=== PATIENT | male | born 1995 | race Two or more races ===

== ENCOUNTER 2023-07-18 19:40 | Inpatient (IN) | payer MEDICAID, OTHER ==
[~2023-07-18] VITALS: Ht 177.8 cm; Wt 77.2 kg
[2023-07-18] MEDS ORDERED: KETOROLAC TROMETH 30 MG/ML 1ML VIAL IV ONE (20:00)
[2023-07-18] MEDS: SODIUM CHLORIDE 0.9% 1,000 ML IV ONE ×2 (20:02→21:16)
[2023-07-18] MEDS: ONDANSETRON HCL 4 MG/2 ML VIAL IV ONE (20:02)
[2023-07-18] MEDS: CLINDAMYCIN 600MG IV 50 ML IV ONE (20:18)
[2023-07-18] MEDS: ONDANSETRON HCL 4 MG/2 ML VIAL ONE (20:30)
[2023-07-18] MEDS: MORPHINE SULFATE INJ 2 MG/ml SYRG IV ONE (20:31)
[2023-07-18] MEDS: METOCLOPRAMIDE HCL 5MG/ml INJ 2ml VIAL IV ONE ×2 (20:45→20:54)
[2023-07-18 20:49] LABS: Basophils # (auto) 0 10 ^3/uL (0-0.2); Basophils % (auto) 0.4 % (0.0-2.0); Eosinophils # (auto) 0 10 ^3/uL (0-0.8); Eosinophils % (auto) 0.4 % (0.0-7.0); Hematocrit 44.7 % (41.0-53.0); Hemoglobin 15.4 g/dL (13.5-17.5); Lymphocytes # (auto) 2.7 10 ^3/uL (0.4-5.4); Lymphocytes % (auto) 32.6 % (10.0-50.0); Mean Corpuscular Hemoglobin 31.3 pg (28.0-32.0); Mean Corpuscular Hgb Conc. 34.4 g/dL (32.0-36.0); Monocytes # (auto) 0.9 10 ^3/uL (0-1.3); Monocytes % (auto) 11.5 % (0.0-12.0); Neutrophils # (auto) 4.5 10 ^3/uL (1.6-8.6); Neutrophils % (auto) 55.1 % (37.0-80.0); Nucleated Red Blood Cells % 0.7 %; Red Blood Cells 4.91 10^6/uL (4.5-5.90); Red Cell Distribution Width 13.3 % (11.8-14.3); White Blood Cell 8.1 10^3/uL (4.4-10.8)
[2023-07-18 20:54] VITALS: PULSE 145; RESP 16; O2SAT 99
[2023-07-18 20:59] LABS: Alanine Aminotransferase 10 U/L (7-40); Albumin 4.2 g/dL (3.2-4.8); Alkaline Phosphatase 85 U/L (46-116); Anion Gap 9 (5-15); Aspartate Aminotransferase 28 U/L (13-40); Bilirubin, Total 0.5 mg/dL (0.2-1.0); Calcium 8.7 mg/dL (8.5-10.1); Carbon Dioxide 22 mmol/L (20-30); Chloride 108 mmol/L (98-107); Glucose 112 mg/dL (74-106); Potassium 3.7 mmol/L (3.5-5.1); Sodium 139 mmol/L (136-145)
[2023-07-18 21:00] LABS: BUN/Creatinine Ratio 5.8 (10.0-20.0); Blood Urea Nitrogen < 5 mg/dL (9-23); Total Protein 6.8 g/dL (5.7-8.2)
[2023-07-18 21:01] LABS: Lactic Acid w/Reflex 3.1 mmol/L (0.4-2.0)
[2023-07-18] MEDS ORDERED: ONDANSETRON HCL 4 MG/2 ML VIAL IV PRN (22:30)
[2023-07-18] MEDS ORDERED: DOCUSATE SOD 100 MG CAP PO PRN (22:30)
[2023-07-18] MEDS ORDERED: TEMAZEPAM 15 MG CAP PO PRN (22:30)
[2023-07-18] MEDS ORDERED: MORPHINE SULFATE INJ 2 MG/ml SYRG IV PRN ×2 (22:30)
[2023-07-18] MEDS ORDERED: ACETAMINOPHEN 325 MG TAB PO PRN (22:30)
[2023-07-18] MEDS ORDERED: NITROGLYCERIN 0.4 MG SL TAB SL PRN (22:30)
[2023-07-18] MEDS: SODIUM CHLORIDE 0.9% 1,000 ML IV SCH (22:42)
[2023-07-18 22:46] VITALS: PULSE 79; RESP 16; O2SAT 20
[2023-07-18] MEDS: HYDROcodone-ACET 5/325MG TAB PO PRN (23:26)
[2023-07-19] MEDS: IOHEXOL 350 MG/ML 100ML IJ ONE (00:09)
[2023-07-19] MEDS: CLINDAMYCIN 600MG IV 50 ML IV SCH (01:42)
[2023-07-19 07:08] LABS: Basophils # (auto) 0 10 ^3/uL (0-0.2); Basophils % (auto) 0.8 % (0.0-2.0); Eosinophils # (auto) 0.1 10 ^3/uL (0-0.8); Hematocrit 42.1 % (41.0-53.0); Hemoglobin 14.5 g/dL (13.5-17.5); Lymphocytes # (auto) 1.5 10 ^3/uL (0.4-5.4); Lymphocytes % (auto) 28.1 % (10.0-50.0); Mean Corpuscular Hemoglobin 31.3 pg (28.0-32.0); Mean Corpuscular Hgb Conc. 34.5 g/dL (32.0-36.0); Mean Corpuscular Volume 90.8 fL (80.0-100.0); Monocytes # (auto) 0.7 10 ^3/uL (0-1.3); Monocytes % (auto) 12.7 % (0.0-12.0); Neutrophils # (auto) 3.1 10 ^3/uL (1.6-8.6); Neutrophils % (auto) 57.4 % (37.0-80.0); Nucleated Red Blood Cells % 0.3 %; Red Blood Cells 4.64 10^6/uL (4.5-5.90); Red Cell Distribution Width 13.1 % (11.8-14.3); White Blood Cell 5.3 10^3/uL (4.4-10.8)
[2023-07-19 07:21] LABS: Alanine Aminotransferase 10 U/L (7-40); Albumin 3.9 g/dL (3.2-4.8); Alkaline Phosphatase 84 U/L (46-116); Anion Gap 6 (5-15); Aspartate Aminotransferase 20 U/L (13-40); BUN/Creatinine Ratio 6.4 (10.0-20.0); Blood Urea Nitrogen 5 mg/dL (9-23); Calcium 8.9 mg/dL (8.5-10.1); Carbon Dioxide 24 mmol/L (20-30); Chloride 108 mmol/L (98-107); Glucose 79 mg/dL (74-106); Potassium 4.1 mmol/L (3.5-5.1); Sodium 138 mmol/L (136-145); Total Protein 6.2 g/dL (5.7-8.2)
[2023-07-19 08:00] VITALS: PULSE 70; RESP 14; O2SAT 93
[2023-07-19 10:00] VITALS: TEMP 98.2
[2023-07-19] MEDS: ENOXAPARIN SOD 40 MG/0.4 ML SYRINGE SC SCH (10:00)
[2023-07-19] MEDS ORDERED: CLIN300C70 PO (13:50)
[2023-07-19] MEDS ORDERED: HYDR-4798 PO (13:50)
[2023-07-19 13:54] VITALS: BP 109/72; PULSE 68; RESP 13; O2SAT 98
== END 2023-07-19 14:43 | disposition home or self-care (01) | DRG 383 ==
LOC: ER 19:40 → TELE 22:30
PROVIDERS: ADMIT Nurse Practitioner; ATTEND Nurse Practitioner
DX: L03.211 Cellulitis of face (principal); A41.9 Sepsis, unspecified organism; S02.5XXA Fracture of tooth (traumatic), initial encounter for closed fracture
CPT/HCPCS: 36415; 70487; 80053; 83605; 85025; 87040; 87077; 87186; 96361; 96365; 96375; G0378; J2405; J3490

== ENCOUNTER 2024-04-14 18:02 | Emergency (ER) | payer MEDICAID, OTHER ==
[~2024-04-14] VITALS: Ht 177.8 cm; Wt 86.3 kg
[~2024-04-14 18:02] MED LIST: CLIN1CAP70 PO; HYDR-4798 PO
[2024-04-14] MEDS: TETANUS-DIPTH-ACEL PERTUSSIS 0.5ML SYR Tdap IM ONE (19:29)
[2024-04-14 19:30] VITALS: BP 121/79; PULSE 71; RESP 18; TEMP 97.9; O2SAT 99
--- NOTE | 2024-04-14 19:31 | ED.PDOC ---
History of Present Illness(SKN HPI Comments 28y M who presents to the ED for chief complaint of puncture. Pt states he was using restroom and states while standing at urinal, pt was cut by sharp piece of metal that was located on the urinal. Pt states the incidence occurred at 11 AM. Pt states he had bleeding to site on 2nd, 3rd and 4th fingers on L hand initially but states now, bleeding is controlled. Pt states he is on blood thinner for clotting issue. Pt states he is here due to needing clearance for his work. Pt wound is clean and no visible swelling or edema are noted. Pt otherwise denies any other symptoms at this time. Chief Complaint: Puncture Wound Time Seen by MD: 19:29 History of Present Illness: Medications Allergies: Coded Allergies: NO KNOWN ALLERGIES (Unverified , 07/18/23) Home Meds Active Scripts Hydrocodone-Acetaminophen (Hydrocodone Bitartrate/AC 10-325 mg) 1 Tab Tab, 1 TAB PO Q6HP PRN for 5 Days, #20 TAB Prov:GEOVANI ABDALLA EMAIL MARKETER 07/19/23 Clindamycin Hcl (Clindamycin Hcl) 300 Mg Cap, 300 MG PO TID for 10 Days, #30 CAP Prov:GEOVANI ABDALLA EMAIL MARKETER 07/19/23 Information Source: Patient Mode of Arrival: Ambulatory Brought in by: self Past Medical History PAST MEDICAL HISTORY: Denies Surgical History: Denies all surgeries Family History Family History: Reviewed,noncontributory to illness, No family hx of Cancer, No family hx of DM, No family hx of Heart elmer, No family hx of HTN, No family hx ofKidney elmer, No family hx of Liver elmer, No family hx of Lung elmer, No family hx of Stroke Social History Smoker: Non-Smoker Alcohol: Denies ETOH Use Drugs: Denies Drug Use Lives In: Home Constitutional: denies: chills, diaphoresis, fatigue, fever, malaise, sweats, weakness, others EENTM: denies: blurred vision, double vision, ear bleeding, ear discharge, ear drainage, ear pain, ear ringing, eye pain, eye redness, hearing loss, mouth pain, mouth swelling, nasal discharge, nose bleeding, nose congestion, nose pain, photophobia, tearing, throat pain, throat swelling, voice changes, others Respiratory: denies: cough, hemoptysis, orthopnea, SOB at rest, shortness of breath, SOB with excertion, stridor, wheezing, others Cardiovascular: denies: chest pain, dizzy spells, diaphoresis, Dyspnea on exertion, edema, irregular heart beat, left arm pain, lightheadedness, palp itations, PND, syncope, others Gastrointestinal: denies: abdomen distended, abdominal pain, blood streaked bowels, constipated, diarrhea, dysphagia, difficulty swallowing, hematemesis, melena, nausea, poor appetite, poor fluid intake, rectal bleeding, rectal pain, vomiting, others Genitourinary: denies: burning, dysuria, flank pain, frequency, hematuria, incontinence, penile discharge, penile sore, pain, testicle pain, testicle swelling, urgency, others Neurological: denies: dizziness, fainting, headache, left sided numbness, left sided weakness, numbness, paresthesia, pre-existing deficit, right sided numbness, right sided weakness, seizure, speech problems, tingling, tremors, weakness, others Musculoskeletal: denies: back pain, gout, joint pain, joint swelling, muscle pain, muscle stiffness, neck pain, others Integumetry: reports: wounds (L hand fingers); denies: bruises, change in color, change in hair/nails, dryness, laceration, lesions, lumps, rash, others Allergic/Immunocompromised: denies: Difficulty Healing, Frequent Infections, Hives, Itching, others Hematologic/Lymphatic: denies: anemia, blood clots, easy bleeding, easy bruising, swollen glands, others Endocrine: denies: excessive hunger, excessive sweating, excessive thirst, excessive urination, flushing, intolerance to cold, intolerance to heat, unexplained weight gain, unexplained weight loss, others Psychiatric: denies: anxiety, bipolar disorder, depression, hopeless, panic disorder, schizophrenia, sleepless, suicidal, others All Other Systems: Reviewed and Negative Physical Exam General Appearance: No Apparent Distress, Normal HEENT: Normal ENT Inspection, Pharynx Normal, TMs Normal Neck: Full Range of Motion, Non-Tender, Normal, Normal Inspection Respiratory: Chest Non-Tender, Lungs Clear, No Accessory Muscle Use, No Respiratory Distress, Normal Breath Sounds Cardiovascular: No Edema, No JVD, No Murmur, No Gallop, Normal Peripheral Pulses, Regular Rate/Rhythm Breast Exam: Deferred Gastrointestinal: No Organomegaly, Non Tender, No Pulsatile Mass, Normal Bowel Sounds, Soft Genitalia: Deferred Pelvic: Deferred Rectal: Deferred Extremities: No calf tenderness, Normal capillary refill, Normal inspection, Normal range of motion, Non-tender, No pedal edema Musculoskeletal : Apperance: Normal Neurologic: Alert, client success manager II-XII nml as Tested, No Motor Deficits, Normal Affect, Normal Mood, No Sensory Deficits Cerebellar Function: NOT DONE Reflexes: NOT DONE Skin: Other (abrasions noted to 2nd, 3rd and 4th fingers on L hand, surrouding area clean) Lymphatic: No Adenopathy Was a procedure done? Was a procedure done?: No Differential Diagnosis (INTG) Differential Diagnosis: Abrasion, Cellulitis, Puncture Wound X-Ray, Labs, Meds, VS Vital Signs Date Time Temp Pulse Resp B/P (MAP) Pulse Ox O2 Delivery O2 Flow Rate FiO2 04/14/24 18:35 97.6 77 16 114/87 (96) 98 Current Medications Medications (Trade) Dose Ordered Sig/Emigdio Route Start Time Stop Time Status Last Admin Diphtheria/ Tetanus/Acell Pertussis (Boostrix T-Dap) 0.5 ml ONCE ONCE IM 04/14/24 19:30 04/14/24 19:31 DC 04/14/24 19:29 Time of 1ST Reevaluation: 20:00 Reevaluation 1ST: Unchanged Patient Education/Counseling: Diagnosis, Treatment Family Education/Counseling: No Family Present Departure 1 Departure Time of Disposition: 19:32 (Patient has small abrasions but no lacerations. Bleeding is controlled. neurovascularly intact.) Impression: Primary Impression: Hand abrasion Qualified Codes: S60.512A - Abrasion of left hand, initial encounter Disposition: HOME / SELF CARE / HOMELESS Condition: Stable Additional Instructions: You have abrasions to your left hand. 1. Wash the area with gentle soap such as Dove brand and water. 2. Cover the abrasion with bacitracin 3. Bandage the abrasion and keep them covered. You should do the above twice per day. For pain you can take the followinam: Ibuprofen 400mg with food Noon: Acetaminophen 1000mg 4pm: Ibuprofen 400mg with food 8pm: Acetaminophen 1000mg You received a tetanus shot in the ER. You can return to work as normal. If your symptoms worsen or you have any other concerns then please return to the ER. Discharged With: Self Critical Care Note Critical Care Time?: No Stability Stability form required: No Heart Score Heart Score: Heart Score Response (Comments) Value History N/A 0 EKG N/A 0 Age N/A 0 Risk Factors N/A 0 Troponin N/A 0 Total 0 I personally scribed for CRISTOFER OLIVEIRA MD ([email or web address]) on 04/14/24 at 19:31. Electronically submitted by Severiano Jensen ([email or web address]). CRISTOFER OLIVEIRA MD Apr 14, 2024 19:31
== END 2024-04-14 19:36 | disposition home or self-care (01) ==
LOC: ER 18:02
DX: S60.512A Abrasion of left hand, initial encounter (principal); Z79.899 Other long term (current) drug therapy; W26.8XXA Contact with other sharp object(s), not elsewhere classified, initial encounter; Y93.89 Activity, other specified; Y92.89 Other specified places as the place of occurrence of the external cause; Y99.8 Other external cause status
CPT/HCPCS: 90471; 90715

== ENCOUNTER 2024-07-31 19:18 | Emergency (ER) | payer MEDICAID, OTHER ==
[~2024-07-31] VITALS: Ht 177.8 cm; Wt 91.1 kg
--- NOTE | 2024-07-31 19:29 | ED.PDOC ---
SOB-HPI HPI Comments 29 year old male presents to the ED with chief complaint of SOB. Patient reports that he has been experiencing SOB with associated chest pain for the past few days along with associated left sided arm pain and tingling along with associated left leg pain that radiates to the groin for the past 2 days. Patient relays that he was seen in [place] for similar symptoms about 6 months ago and was sent to [place] where an thrombectomy was performed and he was placed on Eliquis. Patient states he has taken his Eliquis sporadically throughout those 6 months, however, this past month he has taken his medication daily as prescribed. Patient denies any dizziness, headache, cough, fever, chills, numbness, or weakness. Time Seen by MD: 19:25 Reviewed notes: Nurses Notes, Medications, Allergies Information Source: Patient Mode of Arrival: Ambulatory Severity: Moderate Timing: Hours Duration: Since onset Context: At Rest PE Risk Factors: None History of: DVT/PE Prehospital treatment: None Modifying Factors: Nothing Associated Signs and Symptoms: Chest Pain Quality: Tightness Radiation: No Radiation Location: Substernal Past Medical History PAST MEDICAL HISTORY: PE Past Medical History (Other): DVTs Surgical History: Denies all surgeries Family History Family History: Reviewed,noncontributory to illness, No family hx of Cancer, No family hx of DM, No family hx of Heart elmer, No family hx of HTN, No family hx ofKidney elmer, No family hx of Liver elmer, No family hx of Lung elmer, No family hx of Stroke Social History Smoker: Non-Smoker Alcohol: Denies ETOH Use Drugs: Denies Drug Use Lives In: Home Constitutional: denies: chills, diaphoresis, fatigue, fever, malaise, sweats, weakness, others EENTM: denies: blurred vision, double vision, ear bleeding, ear discharge, ear drainage, ear pain, ear ringing, eye pain, eye redness, hearing loss, mouth pain, mouth swelling, nasal discharge, nose bleeding, nose congestion, nose pain, photophobia, tearing, throat pain, throat swelling, voice changes, others Respiratory: reports: shortness of breath, SOB with excertion; denies: cough, hemoptysis, orthopnea, SOB at rest, stridor, wheezing, others Cardiovascular: reports: chest pain, left arm pain; denies: dizzy spells, diaphoresis, Dyspnea on exertion, edema, irregular heart beat, lightheadedness, palpitations, PND, syncope, others Gastrointestinal: denies: abdomen distended, abdominal pain, blood streaked bowels, constipated, diarrhea, dysphagia, difficulty swallowing, hematemesis, melena, nausea, poor appetite, poor fluid intake, rectal bleeding, rectal pain, vomiting, others Genitourinary: denies: burning, dysuria, flank pain, frequency, hematuria, incontinence, penile discharge, penile sore, pain, testicle pain, testicle swelling, urgency, others Neurological: reports: tingling; denies: dizziness, fainting, headache, left sided numbness, left sided weakness, numbness, paresthesia, pre-existing deficit, right sided numbness, right sided weakness, seizure, speech problems, tremors, weakness, others Musculoskeletal: reports: others (left leg pain); denies: back pain, gout, joint pain, joint swelling, muscle pain, muscle stiffness, neck pain Integumetry: denies: bruises, change in color, change in hair/nails, dryness, laceration, lesions, lumps, rash, wounds, others Allergic/Immunocompromised: denies: Difficulty Healing, Frequent Infections, Hives, Itching, others Hematologic/Lymphatic: reports: blood clots; denies: anemia, easy bleeding, easy bruising, swollen glands, others Endocrine: denies: excessive hunger, excessive sweating, excessive thirst, excessive urination, flushing, intolerance to cold, intolerance to heat, unexplained weight gain, unexplained weight loss, others Psychiatric: denies: anxiety, bipolar disorder, depression, hopeless, panic disorder, schizophrenia, sleepless, suicidal, others All Other Systems: Reviewed and Negative Physical Exam General Appearance: No Apparent Distress, Normal HEENT: Normal ENT Inspection, PERRL/EOMI Neck: Full Range of Motion, Non-Tender, Normal, Normal Inspection Respiratory: Chest Non-Tender, Lungs Clear, No Accessory Muscle Use, No Respiratory Distress, Normal Breath Sounds Cardiovascular: No Edema, No JVD, No Murmur, No Gallop, Normal Peripheral Pulses, Regular Rate/Rhythm Breast Exam: Deferred Gastrointestinal: No Organomegaly, Non Tender, No Pulsatile Mass, Normal Bowel Sounds, Soft Genitalia: Deferred Pelvic: Deferred Rectal: Deferred Extremities: No calf tenderness, Normal capillary refill, Normal inspection, Normal range of motion, Non-tender, No pedal edema Musculoskeletal : Apperance: Normal Neurologic: Alert, piano regulator inspector II-XII nml as Tested, No Motor Deficits, Normal Affect, Normal Mood, No Sensory Deficits Cerebellar Function: Normal Reflexes: Normal Skin: Dry, Normal Color, Warm Lymphatic: No Adenopathy Was a procedure done? Was a procedure done?: No Differential Dx Differential Diagnosis: Myocardial infarction, Pulmonary Embolism, Other (DVT) X-Ray, Labs, Meds, VS Vital Signs Date Time Temp Pulse Resp B/P (MAP) Pulse Ox O2 Delivery O2 Flow Rate FiO2 07/31/24 22:18 89 07/31/24 22:00 92 15 107/67 (80) 98 07/31/24 21:35 93 15 99 Room Air* 0 21 07/31/24 21:00 92 14 107/67 07/31/24 20:21 101 19 116/72 07/31/24 20:13 95 07/31/24 20:00 98.0 106 26 116/72 (87) 99 98.0 07/31/24 20:00 100 07/31/24 19:23 109 07/31/24 19:20 98.0 109 26 126/76 (93) 98 Lab Test 07/31/24 20:50 07/31/24 19:56 Range/Units Troponin I High Sensitivity < 3 L < 3 L </=54 ng/L White Blood Count 4.3 L 4.4-10.8 10^3/uL Red Blood Count 4.93 4.5-5.90 10^6/uL Hemoglobin 15.4 13.5-17.5 g/dL Hematocrit 45.9 41.0-53.0 % Mean Corpuscular Volume 93.0 80.0-100.0 fL Mean Corpuscular Hemoglobin 31.3 28.0-32.0 pg Mean Corpuscular Hemoglobin Concent 33.6 32.0-36.0 g/dL Red Cell Distribution Width 13.6 11.8-14.3 % Platelet Count 128 L 140-450 10^3/uL Mean Platelet Volume 9.1 6.9-10.8 fL Neutrophils (%) (Auto) 49.3 37.0-80.0 % Lymphocytes (%) (Auto) 36.1 10.0-50.0 % Monocytes (%) (Auto) 8.4 0.0-12.0 % Eosinophils (%) (Auto) 5.3 0.0-7.0 % Basophils (%) (Auto) 0.9 0.0-2.0 % Neutrophils # (Auto) 2.1 1.6-8.6 10 ^3/uL Lymphocytes # (Auto) 1.5 0.4-5.4 10 ^3/uL Monocytes # (Auto) 0.4 0-1.3 10 ^3/uL Eosinophils # (Auto) 0.2 0-0.8 10 ^3/uL Basophils # (Auto) 0 0-0.2 10 ^3/uL Nucleated Red Blood Cells 0.1 % Prothrombin Time 10.2 9.3-11.8 sec Prothrombin Time INR 0.96 0.9-1.15 D-Dimer, Quantitative 0.23 0.0-0.49 mg/L FEU Sodium Level 138 136-145 mmol/L Potassium Level 3.7 3.5-5.1 mmol/L Chloride Level 106 98-107 mmol/L Carbon Dioxide Level 19 L 20-31 mmol/L Anion Gap 13 5-15 Blood Urea Nitrogen 6 L 9-23 mg/dL Creatinine 0.99 0.700-1.30 mg/dL Glomerular Filtration Rate Calc 106 >90 mL/min BUN/Creatinine Ratio 6.1 L 10.0-20.0 Serum Glucose 121 H 74-106 mg/dL Calcium Level 9.6 8.7-10.4 mg/dL Total Bilirubin 0.5 0.2-1.0 mg/dL Aspartate Amino Transferase (AST) 135 H 13-40 U/L Alanine Aminotransferase (ALT) 80 H 7-40 U/L Alkaline Phosphatase 91 46-116 U/L Total Protein 7.2 5.7-8.2 g/dL Albumin 4.7 3.2-4.8 g/dL Current Medications Medications (Trade) Dose Ordered Sig/Emigdio Route Start Time Stop Time Status Last Admin Morphine Sulfate 4 mg ONCE ONCE IV 07/31/24 20:15 07/31/24 20:16 DC 07/31/24 20:21 Ondansetron HCl (Zofran) 4 mg ONCE ONCE IV 07/31/24 20:15 07/31/24 20:16 DC 07/31/24 20:20 X-Ray, Labs, Meds, VS Comment CTA NEGATIVE DVT ULTRASOUND SHOWS NO OCCLUDED RIGHT POPLITEAL PATIENT ADVISED HE NEEDS TO CONTINUE TAKING ELIQUIS B.I.D. DIRECTED BY HIS PARLIAMENTARY ARCHIVIST AND PRIMARY DOCTORS ADVISED HIM TO CALL TOMORROW FOR A FOLLOW UP APPOINTMENT WITH CARDIOLOGY AND HEMATOLOGY. Time of 1ST Reevaluation: 20:25 Reevaluation 1ST: Unchanged Patient Education/Counseling: Diagnosis, Treatment, Need For Follow Up (PATIENT ADVISED TO FOLLOW-UP IN THE EMERGENCY ROOM IN THE NEXT 24 TO 48 HOURS IF SYMPTOMS DO NOT IMPROVE. ADVISED FOLLOW-UP WITH PCP IN THE NEXT 3 TO 5 DAYS. PATIENT VERBALIZED UNDERSTANDING. ) Family Education/Counseling: No Family Present Departure 1 Departure Time of Disposition: 22:49 Impression: Primary Impression: Right leg DVT Qualified Codes: I82.431 - Acute embolism and thrombosis of right popliteal vein Disposition: HOME / SELF CARE / HOMELESS Condition: Fair e-Prescriptions Apixaban Base (ELIQUIS) 5 Mg Tab 5 MG PO BID for 30 Days, #60 TAB Prov: WES PAEZ 07/31/24 Discharged With: Self Critical Care Note Critical Care Time?: No Stability Stability form required: No Heart Score Heart Score: Heart Score Response (Comments) Value History Slightly Suspicious 0 EKG Normal 0 Age <45 0 Risk Factors No known risk factors 0 Troponin Normal limit 0 Total 0 I personally scribed for WES PAEZ ([email or web address]) on 07/31/24 at 19:29. Electronically submitted by Mat Bojorquez ([email or web address]). WES PAEZ Jul 31, 2024 19:29
[2024-07-31 20:00] VITALS: TEMP 98
[2024-07-31 20:17] LABS: Basophils # (auto) 0 10 ^3/uL (0-0.2); Basophils % (auto) 0.9 % (0.0-2.0); Eosinophils # (auto) 0.2 10 ^3/uL (0-0.8); Eosinophils % (auto) 5.3 % (0.0-7.0); Hematocrit 45.9 % (41.0-53.0); Hemoglobin 15.4 g/dL (13.5-17.5); Lymphocytes # (auto) 1.5 10 ^3/uL (0.4-5.4); Lymphocytes % (auto) 36.1 % (10.0-50.0); Mean Corpuscular Hemoglobin 31.3 pg (28.0-32.0); Mean Corpuscular Hgb Conc. 33.6 g/dL (32.0-36.0); Monocytes # (auto) 0.4 10 ^3/uL (0-1.3); Monocytes % (auto) 8.4 % (0.0-12.0); Neutrophils # (auto) 2.1 10 ^3/uL (1.6-8.6); Neutrophils % (auto) 49.3 % (37.0-80.0); Nucleated Red Blood Cells % 0.1 %; Platelet Count (auto) 128 10^3/uL (140-450); Red Blood Cells 4.93 10^6/uL (4.5-5.90); Red Cell Distribution Width 13.6 % (11.8-14.3); White Blood Cell 4.3 10^3/uL (4.4-10.8)
[2024-07-31] MEDS: ONDANSETRON HCL 4 MG/2 ML VIAL IV ONE (20:20)
[2024-07-31] MEDS: MORPHINE SULFATE 4 MG/ML SYR/VIAL IV ONE (20:21)
[2024-07-31 20:32] LABS: INR 0.96 (0.9-1.15); Prothrombin Time 10.2 sec (9.3-11.8)
[2024-07-31 20:34] LABS: Albumin 4.7 g/dL (3.2-4.8); Alkaline Phosphatase 91 U/L (46-116); Anion Gap 13 (5-15); BUN/Creatinine Ratio 6.1 (10.0-20.0); Calcium 9.6 mg/dL (8.7-10.4); Chloride 106 mmol/L (98-107); Potassium 3.7 mmol/L (3.5-5.1); Sodium 138 mmol/L (136-145); Total Protein 7.2 g/dL (5.7-8.2)
[2024-07-31 20:35] LABS: Bilirubin, Total 0.5 mg/dL (0.2-1.0)
[2024-07-31 21:04] LABS: Alanine Aminotransferase 80 U/L (7-40); Aspartate Aminotransferase 135 U/L (13-40); Blood Urea Nitrogen 6 mg/dL (9-23); Carbon Dioxide 19 mmol/L (20-31); Glucose 121 mg/dL (74-106)
--- NOTE | 2024-07-31 21:25 | DVH ---
CTA Chest with intravenous contrast INDICATION: sob Comparison Study: None available at time of dictation. TECHNIQUE: Multidetector spiral CTA of the chest was performed of the chest with intravenous contrast . PULMONARY ANGIOGRAPHY PROTOCOL was utilized using a bolus-tracking technique centered on the main p ulmonary artery. Axial, coronal and sagittal multiplanar and MIP reformats were performed. Radiation Dose : 1. Chest: CTDI volume is 5.92 mGy. Dose-length product is 539.86 mGy*cm The dose indicators for CT are the volume Computed Tomography (CT) Dose Index (CTDIvol) and the Dose Length Product (DLP), and are measured in units of mGy and mGy-cm, respectively. These indicators are not patient dose, but values generated from the CT scanner acquisition factors. The report includes radiation exposure data for exposures received during this examination. Findings: Pulmonary artery: No evidence of pulmonary embolism seen to the level of the proximal segmental arteries. No dilation o f the pulmonary trunk. No right heart strain. Lower neck: Within normal limits. Lungs: Within normal limits.. Heart/Vascular Structures: Within normal limits.. Lymph Nodes: No adenopathy Pleura: Within normal limits.. Musculoskeletal: Within normal limits.. Body wall: Within normal limits.. Upper abdomen: Within normal limits. IMPRESSION: No evidence of pulmonary embolism. No aortic dissection or aneurysm.
[2024-07-31 21:35] VITALS: PULSE 93; RESP 15; O2SAT 99
[2024-07-31 22:00] VITALS: BP 107/67; RESP 15; O2SAT 98
[2024-07-31 22:18] VITALS: PULSE 89
--- NOTE | 2024-07-31 22:32 | DVH ---
Bilateral lower extremity venous duplex Clinical History: LEG PAIN, HX DVT Comparison: None Technique: Duplex Doppler evaluation of the deep venous systems of both lower extremities from the common femora l veins to the popliteal veins including color Doppler and spectral/pulsed waveform analysis was perf ormed. Findings: RIGHT SIDE: The common femoral vein demonstrates appropriate compressibility and waveform variability. There is compressibility/patency of the great saphenous vein at the proximal thigh. The femoral vein demonstrates appropriate compressibility and waveform variability. The deep femoral vein demonstrates appropriate compressibility and waveform variability. The popliteal vein demonstrates evidence of nonconclusive thrombus. There is normal compressibility at the tibioperoneal trunk. LEFT SIDE: The common femoral vein demonstrates appropriate compressibility and waveform variability. There is compressibility/patency of the great saphenous vein at the proximal thigh. The femoral vein demonstrates appropriate compressibility and waveform variability. The deep femoral vein demonstrates appropriate compressibility and waveform variability. The popliteal vein demonstrates appropriate compressibility and waveform variability. There is normal compressibility at the tibioperoneal trunk. Impression: Evidence of non occlusive thrombus in right popiteal vein. No evidence of left femoropopliteal venous thrombosis.
[2024-07-31] MEDS ORDERED: APIX5TAB PO (22:50)
--- NOTE | 2024-08-01 06:38 | ECG ---
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
--- NOTE | 2024-08-01 06:39 | ECG ---
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
--- NOTE | 2024-08-01 15:19 | ECG ---
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
== END 2024-07-31 23:09 | disposition home or self-care (01) ==
LOC: ER 19:18
DX: I82.431 Acute embolism and thrombosis of right popliteal vein (principal); R06.02 Shortness of breath; R07.89 Other chest pain; Z79.01 Long term (current) use of anticoagulants; Z86.718 Personal history of other venous thrombosis and embolism
CPT/HCPCS: 36415; 71275; 80053; 84484; 85025; 85379; 85610; 93005; 93970; 96374; 96375; 99285; J2270; J2405

== ENCOUNTER 2024-12-04 20:43 | Emergency (ER) | payer MEDICAID, SELFPAY ==
[~2024-12-04] VITALS: Ht 177.8 cm; Wt 95.5 kg
[~2024-12-04 20:43] MED LIST changes: +APIX5TAB PO
--- NOTE | 2024-12-04 21:09 | ED.PDOC ---
SOB-HPI HPI Comments 29-year-old male with PMHx DVT presents with a chief complaint of SOB x 2 weeks worsening over the last day. Patient states that he woke up this morning and had worsening SOB. Patient also reports that he is experiencing left-sided numbness. Patient states that he is also having bilateral lower leg swelling and has been out of his Eliquis for 3 weeks. No other symptoms or modifying factors present at this time. Time Seen by MD: 21:06 Reviewed notes: Medications, Allergies Information Source: Patient Mode of Arrival: Ambulatory Severity: Moderate Timing: Weeks Duration: Since onset PE Risk Factors: None History of: None Prehospital treatment: None Associated Signs and Symptoms: Leg Swelling Quality: Pressure Radiation: No Radiation Location: Substernal Past Medical History PAST MEDICAL HISTORY: PE Surgical History: Denies all surgeries Family History Family History: Reviewed,noncontributory to illness, No family hx of Cancer, No family hx of DM, No family hx of Heart elmer, No family hx of HTN, No family hx ofKidney elmer, No family hx of Liver elmer, No family hx of Lung elmer, No family hx of Stroke Social History Smoker: Non-Smoker Alcohol: Denies ETOH Use Drugs: Denies Drug Use Lives In: Home Constitutional: denies: chills, diaphoresis, fatigue, fever, malaise, sweats, weakness, others EENTM: denies: blurred vision, double vision, ear bleeding, ear discharge, ear drainage, ear pain, ear ringing, eye pain, eye redness, hearing loss, mouth pain, mouth swelling, nasal discharge, nose bleeding, nose congestion, nose pain, photophobia, tearing, throat pain, throat swelling, voice changes, others Respiratory: reports: shortness of breath; denies: cough, hemoptysis, orthopnea, SOB at rest, SOB with excertion, stridor, wheezing, others Cardiovascular: reports: edema; denies: chest pain, dizzy spells, diaphoresis, Dyspnea on exertion, irregular heart beat, left arm pain, lightheadedness, palpitations, PND, syncope, others Gastrointestinal: denies: abdomen distended, abdominal pain, blood streaked bowels, constipated, diarrhea, dysphagia, difficulty swallowing, hematemesis, melena, nausea, poor appetite, poor fluid intake, rectal bleeding, rectal pain, vomiting, others Genitourinary: denies: burning, dysuria, flank pain, frequency, hematuria, incontinence, penile discharge, penile sore, pain, testicle pain, testicle swelling, urgency, others Neurological: denies: dizziness, fainting, headache, left sided numbness, left sided weakness, numbness, paresthesia, pre-existing deficit, right sided numbness, right sided weakness, seizure, speech problems, tingling, tremors, weakness, others Musculoskeletal: denies: back pain, gout, joint pain, joint swelling, muscle pain, muscle stiffness, neck pain, others Integumetry: denies: bruises, change in color, change in hair/nails, dryness, laceration, lesions, lumps, rash, wounds, others Allergic/Immunocompromised: denies: Difficulty Healing, Frequent Infections, Hives, Itching, others Hematologic/Lymphatic: denies: anemia, blood clots, easy bleeding, easy bruising, swollen glands, others Endocrine: denies: excessive hunger, excessive sweating, excessive thirst, excessive urination, flushing, intolerance to cold, intolerance to heat, unexplained weight gain, unexplained weight loss, others Psychiatric: denies: anxiety, bipolar disorder, depression, hopeless, panic disorder, schizophrenia, sleepless, suicidal, others All Other Systems: Reviewed and Negative Physical Exam General Appearance: No Apparent Distress, Normal HEENT: Normal ENT Inspection, Pharynx Normal, TMs Normal Neck: Full Range of Motion, Non-Tender, Normal, Normal Inspection Respiratory: Chest Non-Tender, Lungs Clear, No Accessory Muscle Use, No Respiratory Distress, Normal Breath Sounds Cardiovascular: Tachycardia Breast Exam: Deferred Gastrointestinal: No Organomegaly, Non Tender, No Pulsatile Mass, Normal Bowel Sounds, Soft Genitalia: Deferred Pelvic: Deferred Rectal: Deferred Extremities: Leg edema, Swelling Musculoskeletal : Apperance: Normal 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 Was a procedure done?: No Differential Dx Differential Diagnosis: Anxiety, Asthma, Myocardial infarction, Pulmonary Embolism X-Ray, Labs, Meds, VS Vital Signs Date Time Temp Pulse Resp B/P (MAP) Pulse Ox O2 Delivery O2 Flow Rate FiO2 12/04/24 22:39 89 17 115/76 (89) 97 12/04/24 22:27 89 17 115/76 12/04/24 22:16 19 98 Room Air* 0 21 12/04/24 22:00 98.8 92 12 107/72 (84) 98 98.8 12/04/24 21:57 67 19 120/81 12/04/24 21:54 99 12/04/24 20:50 125 12/04/24 20:46 97.8 123 20 125/81 (96) 97 97.8 Lab Test 12/04/24 21:45 Range/Units White Blood Count 3.5 L 4.4-10.8 10^3/uL Red Blood Count 4.72 4.5-5.90 10^6/uL Hemoglobin 15.0 13.5-17.5 g/dL Hematocrit 43.7 41.0-53.0 % Mean Corpuscular Volume 92.7 80.0-100.0 fL Mean Corpuscular Hemoglobin 31.8 28.0-32.0 pg Mean Corpuscular Hemoglobin Concent 34.3 32.0-36.0 g/dL Red Cell Distribution Width 12.9 11.8-14.3 % Platelet Count 111 L 140-450 10^3/uL Mean Platelet Volume 9.6 6.9-10.8 fL Neutrophils (%) (Auto) 41.1 37.0-80.0 % Lymphocytes (%) (Auto) 44.9 10.0-50.0 % Monocytes (%) (Auto) 10.9 0.0-12.0 % Eosinophils (%) (Auto) 2.0 0.0-7.0 % Basophils (%) (Auto) 1.1 0.0-2.0 % Neutrophils # (Auto) 1.4 L 1.6-8.6 10 ^3/uL Lymphocytes # (Auto) 1.6 0.4-5.4 10 ^3/uL Monocytes # (Auto) 0.4 0-1.3 10 ^3/uL Eosinophils # (Auto) 0.1 0-0.8 10 ^3/uL Basophils # (Auto) 0 0-0.2 10 ^3/uL Nucleated Red Blood Cells 0.2 % Prothrombin Time 10.9 9.3-11.8 sec Prothrombin Time INR 1.03 0.9-1.15 Activated Partial Thromboplast Time 25.2 24.5-34.5 SEC Sodium Level 138 136-145 mmol/L Potassium Level 3.4 L 3.5-5.1 mmol/L Chloride Level 104 98-107 mmol/L Carbon Dioxide Level 23 20-31 mmol/L Anion Gap 11 5-15 Blood Urea Nitrogen 6 L 9-23 mg/dL Creatinine 0.92 0.700-1.30 mg/dL Glomerular Filtration Rate Calc 116 >90 mL/min BUN/Creatinine Ratio 6.5 L 10.0-20.0 Serum Glucose 77 74-106 mg/dL Calcium Level 9.4 8.7-10.4 mg/dL Total Bilirubin 0.5 0.2-1.0 mg/dL Aspartate Amino Transferase (AST) 136 H 13-40 U/L Alanine Aminotransferase (ALT) 149 H 7-40 U/L Alkaline Phosphatase 84 46-116 U/L Troponin I High Sensitivity < 3 L </=54 ng/L Total Protein 6.4 5.7-8.2 g/dL Albumin 4.3 3.2-4.8 g/dL Current Medications Medications (Trade) Dose Ordered Sig/Emigdio Route Start Time Stop Time Status Last Admin Morphine Sulfate 4 mg ONCE ONCE IV 12/04/24 22:00 12/04/24 22:01 DC 12/04/24 21:57 Ondansetron HCl (Zofran) 4 mg ONCE ONCE IV 12/04/24 22:00 12/04/24 22:01 DC 12/04/24 21:56 X-Ray, Labs, Meds, VS Comment Imaging: X-rays and CT scans were reviewed and interpreted by this provider, imaging shows no fractures and no pathological disease. Pending radiology otf yu. Laboratory: Labs reviewed and interpreted by this provider. No significant abnormalities noted. Patient has prior medical visits reviewed. Med reconciliation performed Vital signs reviewed Time of 1ST Reevaluation: 21:36 Reevaluation 1ST: Unchanged Patient Education/Counseling: Diagnosis, Treatment, Need For Follow Up (Follow up with PCP next available appointment) Family Education/Counseling: No Family Present SEPSIS Sepsis Screen Physician Orders Electrocardigram (12/04/24 21:16) Electrocardigram (12/04/24 22:16) Electrocardigram (12/05/24 00:16) Ct Chest/Ab/Pl W Con- Iv Only (12/04/24 21:16) Angio Head/Neck (12/04/24 21:16) Angio Extremity Bilat (12/04/24 23:15) Vital Signs Date Time Temp Pulse Resp B/P (MAP) Pulse Ox O2 Delivery O2 Flow Rate FiO2 12/04/24 22:39 89 17 115/76 (89) 97 12/04/24 22:27 89 17 115/76 12/04/24 22:16 19 98 Room Air* 0 21 12/04/24 22:00 98.8 92 12 107/72 (84) 98 98.8 12/04/24 21:57 67 19 120/81 12/04/24 21:54 99 12/04/24 20:50 125 12/04/24 20:46 97.8 123 20 125/81 (96) 97 97.8 Laboratory Tests Test 12/04/24 21:45 White Blood Count 3.5 10^3/uL (4.4-10.8) L Medications Medications Dose Ordered Sig/Emigdio Route Start Time Stop Time Status Last Admin Dose Admin Morphine Sulfate 4 mg ONCE ONCE IV 12/04/24 22:00 12/04/24 22:01 DC 12/04/24 21:57 Ondansetron HCl 4 mg ONCE ONCE IV 12/04/24 22:00 12/04/24 22:01 DC 12/04/24 21:56 Departure 1 Departure Time of Disposition: 00:19 Impression: Primary Impression: Chest pain Qualified Codes: R07.1 - Chest pain on breathing Disposition: HOME / SELF CARE / HOMELESS Condition: Fair e-Prescriptions Apixaban Base (ELIQUIS) 5 Mg Tab 5 MG PO BID for 30 Days, #60 TAB 2 Refills Prov: WES PAEZ 12/05/24 Discharged With: Self Critical Care Note Critical Care Time?: No Stability Stability form required: No Heart Score Heart Score: Heart Score Response (Comments) Value History Moderate Suspicious 1 EKG Normal 0 Age <45 0 Risk Factors 1 or 2 risk factors 1 Troponin Normal limit 0 Total 2 I personally scribed for WES PAEZ ([email or web address]) on 12/04/24 at 21:09. Electronically submitted by Mack Chaudhary ([email or web address]). WES PAEZ Dec 04, 2024 21:09
[2024-12-04 21:53] LABS: Hematocrit 43.7 % (41.0-53.0); Hemoglobin 15.0 g/dL (13.5-17.5); Mean Corpuscular Hemoglobin 31.8 pg (28.0-32.0); Mean Corpuscular Volume 92.7 fL (80.0-100.0); Nucleated Red Blood Cells % 0.2 %
[2024-12-04] MEDS: ONDANSETRON HCL 4 MG/2 ML VIAL IV ONE (21:56)
[2024-12-04] MEDS: MORPHINE SULFATE 4 MG/ML SYR/VIAL IV ONE (21:57)
[2024-12-04 22:00] VITALS: TEMP 98.8
[2024-12-04 22:10] LABS: Albumin 4.3 g/dL (3.2-4.8); Alkaline Phosphatase 84 U/L (46-116); Anion Gap 11 (5-15); BUN/Creatinine Ratio 6.5 (10.0-20.0); Calcium 9.4 mg/dL (8.7-10.4); Carbon Dioxide 23 mmol/L (20-31); Chloride 104 mmol/L (98-107); Glucose 77 mg/dL (74-106); Sodium 138 mmol/L (136-145); Total Protein 6.4 g/dL (5.7-8.2)
[2024-12-04 22:11] LABS: Bilirubin, Total 0.5 mg/dL (0.2-1.0)
[2024-12-04 22:13] LABS: Alanine Aminotransferase 149 U/L (7-40); Blood Urea Nitrogen 6 mg/dL (9-23); Potassium 3.4 mmol/L (3.5-5.1)
[2024-12-04 22:16] VITALS: RESP 19; O2SAT 98
[2024-12-04 22:39] VITALS: BP 115/76; RESP 17; O2SAT 97
--- NOTE | 2024-12-04 22:44 | DVH ---
COMPUTERIZED TOMOGRAPHIC ANGIOGRAPHY HEAD AND NECK WITH CONTRAST REASON FOR EXAM: Neck and shoulder and chest pain. Generalized weakness. Genetic clotting disorder. COMPARISON: None TECHNIQUE: Initial noncontrast head CT was performed. Initial noncontrast head CT was performed Spira l scans were acquired from the aortic arch through the upper [place] of [place] during the bolus intravenous administration of contrast material. Multiplanar maximum intensity projection (MIP) images were prov ided. 3-D reformatted and were generated on an independent workstation. Radiation optimization: All C T scans at this facility use at least one of these dose optimization techniques: Automated exposure c ontrol mA and/or kV adjustment per patient size (includes targeted exams where dose is matched to cli nical indication) or iterative reconstruction. RADIATION DOSE: CTDI: 56 mGy DLP: 1758 mGy-cm FINDINGS: No suspicious intracranial hyperdensity to suggest acute blood. There is no mass effect nor midline s hift. There is no hydrocephalus. The suprasellar cistern is intact. The calvarium is intact. The visu alized mastoid air cells and paranasal sinuses are clear. There is soft tissue density in the right e xternal auditory canal, likely cerumen. There is soft tissue density in the right external auditory c anal, likely cerumen. Cerumen. There is 3-vessel takeoff from the aortic arch. There is 3 vessel takeoff from the aortic arch. There is no appreciable soft or calcified plaque in either common or internal carotid artery. There is no evidence of carotid stenosis. The left vertebral artery is dominant. The right vertebral artery is di minutive. There is no evidence of vertebral artery stenosis, dissection, or occlusion. There is supply of the left posterior cerebral artery. There is no abrupt intracranial arterial cut off. The re is no evidence of intracranial vascular malformation or aneurysm. The dural venous sinuses are pat ent. The visualized lung apices are clear of airspace disease. No acute osseous abnormality is identi fied. IMPRESSION: No abrupt intracranial arterial cut off. No evidence of intracranial vascular malformation or aneury sm. No carotid or vertebral artery stenosis or occlusion. Measurement of carotid stenosis is based on velocity parameters that correlate the residual internal carotid diameter with that of the more distal vessel in accordance with the [place] Symptom[place] Carotid Endarterectomy Trial (NASCET).
[2024-12-04 23:07] LABS: INR 1.03 (0.9-1.15); Partial Thromboplastin Time 25.2 SEC (24.5-34.5); Prothrombin Time 10.9 sec (9.3-11.8)
[2024-12-05] VITALS: PULSE 77
--- NOTE | 2024-12-05 00:08 | DVH ---
CTA CHEST, ABDOMEN, AND PELVIS WITH CONTRAST CTA BILATERAL LOWER EXTREMITY RUNOFF WITH CONTRAST INDICATION: Shortness of breath. Generalized weakness. Genetic clotting disorder. History of pulmo nary embolism. Asked to evaluate for pulmonary embolism as well as systemic arterial thrombus. COMPARISON: CTA chest 07/31/2024 TECHNIQUES: Thin axial CT images of the chest, abdomen, pelvis, and bilateral lower extremities are obtained in the arterial phase after intravenous contrast administration. Maximum intensity projecti on (MIP) images were provided. 3-D images were constructed on independent workstation. Automated exp osure control was used. LABS: Current laboratory values provided were reviewed or Point of Care testing was performed to waqar lary the patient meets current departmental guidelines for contrast media administration per protocol. CONTRAST ADMINISTERED: 100 mL omnipaque 350 intravenously MEDICATIONS: The patient's medication list was reviewed RADIATION DOSE: CTDI: 15 mGy DLP: 2089 mGy-cm FINDINGS: There is minimal dependent atelectasis in bilateral lower lobes of the lungs. There is no bronchiecta sis or honeycombing. There is no pleural effusion. There is no pneumothorax. The visualized thyroid gland is unremarkable. The heart is not enlarged. There is no pericardial effusion. There is no pul monary arterial filling defect as far as the interlobar arteries to suggest pulmonary embolism. There is no thoracic aortic aneurysm or dissection. No pathologic lymphadenopathy is identified in the enrique st by size criteria. The spleen is not enlarged. The liver is normal in size and contour. The liver is diffusely hypoatte nuating. The hepatic veins are patent. The portal vein is patent. No calcified gallstone is identifi ed. There is no pericholecystic edema. The pancreas is unremarkable. The adrenal glands are normal. T he kidneys enhance symmetrically. There is cortical scarring of the interpolar region of the left ki dney. There is no hydronephrosis of either kidney. The urinary bladder is unremarkable. The prostat e and seminal vesicles are within normal limits. There is no significant colonic stool burden. The ap pendix is normal. There is no pathologic distention of the small bowel to suggest obstruction. There is no abdominal aortic aneurysm or dissection. There is no visceral arterial aneurysm. The celiac, SM A, and LUIS E are widely patent. There is no pathologic lymphadenopathy identified in the abdomen or pel vis by size criteria. Bilateral common iliac, internal iliac, and external iliac arteries are widely patent and without any appreciable plaque. Bilateral common femoral, profunda femoris, and superficial femoral arteries are widely patent and without any appreciable plaque or thrombus. Bilateral popliteal arteries are widel y patent without appreciable plaque or thrombus. Bilateral anterior tibial arteries, tibioperoneal tr unk, posterior tibial arteries, and peroneal arteries are widely patent. No acute osseous abnormality is identified. IMPRESSION: No evidence of pulmonary embolism as far as the interlobar level. The pulmonary arteries are suboptim ally evaluated on this CTA of the chest, abdomen, pelvis, and bilateral lower extremities, timed for systemic arterial opacification. No thoracic or abdominal aortic aneurysm or dissection. No evidence of visceral arterial thrombus. Widely patent bilateral lower extremity arteries without evidence of thrombus.
[2024-12-05] MEDS: IOHEXOL 350 MG/ML 100ML IJ ONE (00:48)
--- NOTE | 2024-12-05 06:23 | ECG ---
[facility] Test Date: 2024-12-04 Test Time: 21:54:35 Pat Name: MARCO A LAMBERT Department: ED Room: Gender: M Pick Up: QUINTIN : 1995 Requested By: WES PAEZ Order Number: [id number] Reading MD: Measurements Intervals [place] Rate: 99 P: 33 CO: 155 QRS: 83 QRSD: 126 T: 5 QT: 370 QTc: 475 Interpretive Statements Sinus rhythm Probable left atrial enlargement Right bundle branch block Please click the below link to view image of tracing.
--- NOTE | 2024-12-05 12:08 | ECG ---
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
== END 2024-12-05 01:11 | disposition home or self-care (01) ==
LOC: ER 20:43 → EEVIPCON 20:43 → ER 12-05 01:11
DX: R07.89 Other chest pain (principal); Z86.711 Personal history of pulmonary embolism; Z79.01 Long term (current) use of anticoagulants
CPT/HCPCS: 36415; 70496; 70498; 71260; 74177; 80053; 84484; 85025; 85610; 85730; 93005; 96374; 96375; 99285; J2270; J2405; Q9967

== ENCOUNTER 2025-03-27 12:20 | Inpatient (IN) | payer SELFPAY ==
[~2025-03-27] VITALS: Ht 177.8 cm; Wt 86.0 kg
[2025-03-27 13:00] VITALS: PULSE 86; RESP 12; O2SAT 93
--- NOTE | 2025-03-27 13:05 | ED.PDOC ---
History of Present Illness HPI Comments 29M BIBA w/ prior MHx of PE (not taking meds), DVT:SHx of thrombectomy and the c/c of CP. EMS reports on the pt waking up with shoulder pain which radiated to the substernal portion of the chest which is an 8/10 on the pain scale. Pt was given Nitro/aspirin en rout to the Ed which relief the CP. Denies any other symptoms at this time. Denies chills, fever, N/V/D, SOB. Denies any other associated symptom's, modifiers, or recent injuries or sick contact at this time. Time Seen by MD: 13:00 Reviewed Notes: Nurses Notes, Crystal Mach[employer] Coordinator Notes, Medications, Allergies Allergies: Coded Allergies: NO KNOWN ALLERGIES (Unverified , 07/18/23) Home Meds Active Scripts Apixaban Base (ELIQUIS) 5 Mg Tab, 5 MG PO BID for 30 Days, #60 TAB 2 Refills Prov:WES PAEZ CAM SPECIALIST 12/05/24 Apixaban Base (ELIQUIS) 5 Mg Tab, 5 MG PO BID for 30 Days, #60 TAB Prov:WES PAEZ CAM SPECIALIST 07/31/24 Hydrocodone-Acetaminophen (Hydrocodone Bitartrate/AC 10-325 mg) 1 Tab Tab, 1 TAB PO Q6HP PRN for 5 Days, #20 TAB Prov:GEOVANI ABDALLA NP 07/19/23 Clindamycin Hcl (Clindamycin Hcl) 300 Mg Cap, 300 MG PO TID for 10 Days, #30 CAP Prov:GEOVANI ABDALLA ACTION FINISHER 07/19/23 Information Source: Patient, Emergency Med Personnel Severity: Moderate Timing: Hours Duration: Since onset, Hours Prehospital treatment: None Past Medical History PAST MEDICAL HISTORY: PE Past Medical History (Other): DVT, stopped taking meds for DVT/PE Surgical History (Other): thrombectomy Family History Family History: Reviewed,noncontributory to illness, Unknown Social History Smoker: Other (vape use) Alcohol: Occasionally Drugs: Denies Drug Use Lives In: Home Constitutional: denies: chills, diaphoresis, fatigue, fever, malaise, sweats, weakness, others EENTM: denies: blurred vision, double vision, ear bleeding, ear discharge, ear drainage, ear pain, ear ringing, eye pain, eye redness, hearing loss, mouth pain, mouth swelling, nasal discharge, nose bleeding, nose congestion, nose pain, photophobia, tearing, throat pain, throat swelling, voice changes, others Respiratory: denies: cough, hemoptysis, orthopnea, SOB at rest, shortness of breath, SOB with excertion, stridor, wheezing, others Cardiovascular: reports: chest pain; denies: dizzy spells, diaphoresis, Dyspnea on exertion, edema, irregular heart beat, left arm pain, lightheadedness, palpitations, PND, syncope, others Gastrointestinal: denies: abdomen distended, abdominal pain, blood streaked bowels, constipated, diarrhea, dysphagia, difficulty swallowing, hematemesis, melena, nausea, poor appetite, poor fluid intake, rectal bleeding, rectal pain, vomiting, others Genitourinary: denies: burning, dysuria, flank pain, frequency, hematuria, incontinence, penile discharge, penile sore, pain, testicle pain, testicle swelling, urgency, others Neurological: denies: dizziness, fainting, headache, left sided numbness, left sided weakness, numbness, paresthesia, pre-existing deficit, right sided numbness, right sided weakness, seizure, speech problems, tingling, tremors, weakness, others Musculoskeletal: reports: neck pain (/shoulder pain); denies: back pain, gout, joint pain, joint swelling, muscle pain, muscle stiffness, others Integumetry: denies: bruises, change in color, change in hair/nails, dryness, laceration, lesions, lumps, rash, wounds, others Allergic/Immunocompromised: denies: Difficulty Healing, Frequent Infections, Hives, Itching, others Hematologic/Lymphatic: denies: anemia, blood clots, easy bleeding, easy bruising, swollen glands, others Endocrine: denies: excessive hunger, excessive sweating, excessive thirst, excessive urination, flushing, intolerance to cold, intolerance to heat, unexplained weight gain, unexplained weight loss, others Psychiatric: denies: anxiety, bipolar disorder, depression, hopeless, panic disorder, schizophrenia, sleepless, suicidal, others All Other Systems: Reviewed and Negative Physical Exam General Appearance: Moderate Distress HEENT: Pale Conjuntivae (L), Pale Conjuntivae (R), Pharynx Normal, TMs Normal Neck: Full Range of Motion, Non-Tender, Normal, Normal Inspection Respiratory: Chest Non-Tender, Lungs Clear, No Accessory Muscle Use, No Respiratory Distress, Normal Breath Sounds Cardiovascular: No Edema, No JVD, No Murmur, No Gallop, Normal Peripheral Pulses, Regular Rate/Rhythm Breast Exam: Deferred Gastrointestinal: No Organomegaly, Non Tender, No Pulsatile Mass, Normal Bowel Sounds, Soft Genitalia: Deferred Pelvic: Deferred Rectal: Deferred Extremities: No calf tenderness, Normal capillary refill, Normal inspection, Normal range of motion, Non-tender, No pedal edema Musculoskeletal : Apperance: Normal Neurologic: Alert, ball assembler II-XII nml as Tested, Motor Weakness, Normal Affect, Normal Mood, No Sensory Deficits Cerebellar Function: Normal Reflexes: Normal Skin: Dry, Normal Color, Warm Lymphatic: No Adenopathy Was a procedure done? Was a procedure done?: No EKG EKG : Pulse Rate (adult): 76 [place]: Normal Cardiac Rhythm: NSR Block: None ST: Nonsp Differential Dx Considerations may include: PE, ACS, DE X-Ray, Labs, Meds, VS Vital Signs Date Time Temp Pulse Resp B/P (MAP) Pulse Ox O2 Delivery O2 Flow Rate FiO2 03/27/25 15:45 96 12 109/68 03/27/25 15:25 96 12 109/68 03/27/25 15:18 89 03/27/25 15:00 92 12 109/68 (82) 99 03/27/25 14:50 98 12 112/60 03/27/25 13:45 98.1 78 16 104/64 (77) 96 98.1 03/27/25 13:41 76 03/27/25 13:00 86 12 93 Room Air* 0 21 03/27/25 13:00 88 31 108/74 98 03/27/25 12:36 89 12 101/63 (76) 93 03/27/25 12:30 86 12 101/63 (76) 93 03/27/25 12:23 89 Lab Test 03/27/25 13:57 03/27/25 12:50 Range/Units Troponin I High Sensitivity < 3 L < 3 L </=54 ng/L White Blood Count 4.9 4.4-10.8 10^3/uL Red Blood Count 5.28 4.5-5.90 10^6/uL Hemoglobin 16.4 13.5-17.5 g/dL Hematocrit 47.7 41.0-53.0 % Mean Corpuscular Volume 90.5 80.0-100.0 fL Mean Corpuscular Hemoglobin 31.1 28.0-32.0 pg Mean Corpuscular Hemoglobin Concent 34.4 32.0-36.0 g/dL Red Cell Distribution Width 12.5 11.8-14.3 % Platelet Count 151 140-450 10^3/uL Mean Platelet Volume 9.3 6.9-10.8 fL Neutrophils (%) (Auto) 72.1 37.0-80.0 % Lymphocytes (%) (Auto) 14.5 10.0-50.0 % Monocytes (%) (Auto) 8.9 0.0-12.0 % Eosinophils (%) (Auto) 3.9 0.0-7.0 % Basophils (%) (Auto) 0.6 0.0-2.0 % Neutrophils # (Auto) 3.5 1.6-8.6 10 ^3/uL Lymphocytes # (Auto) 0.7 0.4-5.4 10 ^3/uL Monocytes # (Auto) 0.4 0-1.3 10 ^3/uL Eosinophils # (Auto) 0.2 0-0.8 10 ^3/uL Basophils # (Auto) 0 0-0.2 10 ^3/uL Nucleated Red Blood Cells 0.0 % Prothrombin Time 10.7 9.3-11.8 sec Prothrombin Time INR 1.01 0.9-1.15 Activated Partial Thromboplast Time 26.5 24.5-34.5 SEC D-Dimer, Quantitative 5.14 H 0.0-0.49 mg/L FEU Sodium Level 138 136-145 mmol/L Potassium Level 3.7 3.5-5.1 mmol/L Chloride Level 103 98-107 mmol/L Carbon Dioxide Level 23 20-31 mmol/L Anion Gap 12 5-15 Blood Urea Nitrogen 8 L 9-23 mg/dL Creatinine 0.96 0.700-1.30 mg/dL Glomerular Filtration Rate Calc 110 >90 mL/min BUN/Creatinine Ratio 8.3 L 10.0-20.0 Serum Glucose 89 74-106 mg/dL Calcium Level 8.9 8.7-10.4 mg/dL B-Type Natriuretic Peptide 43.69 0-100 pg/mL Current Medications Medications (Trade) Dose Ordered Sig/Emigdio Route Start Time Stop Time Status Last Admin Morphine Sulfate 4 mg ONCE ONCE IV 03/27/25 14:30 03/27/25 14:31 DC 03/27/25 14:50 Ondansetron HCl (Zofran) 4 mg ONCE ONCE IV 03/27/25 14:30 03/27/25 14:31 DC 03/27/25 14:49 Heparin Sodium (Porcine) 4,000 units ONCE ONCE IV 03/27/25 15:30 03/27/25 15:31 DC 03/27/25 15:44 Hydromorphone HCl (Dilaudid Injection) 1 mg ONCE ONCE IV 03/27/25 15:30 03/27/25 15:31 DC 03/27/25 15:45 IV Hep-Lock was established. The patient was given morphine 4 mg IV push The patient was given Zofran 4 mg IV push The patient was also given Dilaudid 1 mg IV push for the persistent pain. The BNP is within normal limits. The patient's CBC is within normal limits The D-dimer came back elevated at 5.14 The troponin level x2 is negative We did do a CAT scan of the chest to rule out PE which shows: IMPRESSION: 1. Emboli extending from the bilateral pulmonary arteries into the segmental branches. The ultrasound of the lower extremity show: Bilateral DVT The patient is being admitted at this time We did get a radiology consult to see if the patient is eligible for thrombectomy. The radiologist did come down and evaluate the patient and at this time the patient will be started on a heparin drip They will consider a possible green filter tomorrow. The patient is being admitted. Images Reviewed?: Images reviewed and evaluated by me Time of 1ST Reevaluation: 13:30 Reevaluation 1ST: Unchanged Patient Education/Counseling: Diagnosis, Treatment, Prognosis Family Education/Counseling: Diagnosis, Treatment, Prognosis SEPSIS Sepsis Screen Physician Orders Electrocardigram (03/27/25 12:32) Electrocardigram (03/27/25 13:32) Electrocardigram (03/27/25 15:32) Chest Portable (03/27/25 12:41) Heplock Iv (03/27/25 12:41) Livestock Inspector (03/27/25 12:41) Blood Pressure (03/27/25 12:41) Pulse Oximetry (03/27/25 12:41) Urinalysis (03/27/25 12:41) Bilat Lower Dvt (03/27/25 12:41) Ct Angio Chest Contrast (03/27/25 12:41) * Radiologist Consult (03/27/25 14:45) Echo 2d Mode Cardiac Dop (03/27/25 15:24) Platelet Monitoring (03/27/25 15:29) Vte Protocol Initiated (03/27/25 15:29) Heparin Per Standardized Proce (03/27/25 15:29) Discontinue All Im Injections (03/27/25 15:) Heparin Drip/D5w 100units/Ml (03/27/25 15:30) Communication Order (03/27/25 16:06) Npo After Midnight (03/27/25 16:06) Vital Signs Date Time Temp Pulse Resp B/P (MAP) Pulse Ox O2 Delivery O2 Flow Rate FiO2 03/27/25 15:45 96 12 109/68 03/27/25 15:25 96 12 109/68 03/27/25 15:18 89 03/27/25 15:00 92 12 109/68 (82) 99 03/27/25 14:50 98 12 112/60 03/27/25 13:45 98.1 78 16 104/64 (77) 96 98.1 03/27/25 13:41 76 03/27/25 13:00 86 12 93 Room Air* 0 21 03/27/25 13:00 88 31 108/74 98 03/27/25 12:36 89 12 101/63 (76) 93 03/27/25 12:30 86 12 101/63 (76) 93 03/27/25 12:23 89 Laboratory Tests Test 03/27/25 12:50 White Blood Count 4.9 10^3/uL (4.4-10.8) Medications Medications Dose Ordered Sig/Emigdio Route Start Time Stop Time Status Last Admin Dose Admin Heparin Sodium (Porcine) 4,000 units ONCE ONCE IV 03/27/25 15:30 03/27/25 15:31 DC 03/27/25 15:44 Hydromorphone HCl 1 mg ONCE ONCE IV 03/27/25 15:30 03/27/25 15:31 DC 03/27/25 15:45 Morphine Sulfate 4 mg ONCE ONCE IV 03/27/25 14:30 03/27/25 14:31 DC 03/27/25 14:50 Ondansetron HCl 4 mg ONCE ONCE IV 03/27/25 14:30 03/27/25 14:31 DC 03/27/25 14:49 Departure 1 Departure Time of Disposition: 16:24 Impression: Primary Impression: Bilateral pulmonary embolism Additional Impressions: DVT, bilateral lower limbs Qualified Codes: I82.403 - Acute embolism and thrombosis of unspecified deep veins of lower extremity, bilateral Acute chest pain Disposition: ADMITTED INPATIENT Admit to: SLOAN Condition: Fair Critical Care Note Critical Care Time?: Yes (55 min-critical care time only) Stability Stability form required: Yes Unstable for transfer: Telemetry monitoring (Telemetry monitoring required), ED Physician Assesment (Clinical assesment) Heart Score Heart Score: Heart Score Response (Comments) Value History N/A 0 EKG N/A 0 Age N/A 0 Risk Factors N/A 0 Troponin N/A 0 Total 0 I personally scribed for CARMINA BRITT MD ([email or web address]) on 03/27/25 at 13:05. Electronically submitted by Jatinder Carr ([email or web address]). CARMINA BRITT MD Mar 27, 2025 13:05
--- NOTE | 2025-03-27 13:13 | DVH ---
Procedure: XY CHEST PORTABLE History: pain and sob Comparison: CT CT CHEST/AB/PL W CON- IV ONLY on DOS: 12/04/24, Technique: Single view of the chest. Findings: The lung parenchyma is clear. No pleural effusion. Cardiac silhouette is enlarged. Impression: 1. No acute cardiopulmonary disease.
[2025-03-27 13:47] LABS: Chloride 103 mmol/L (98-107); Potassium 3.7 mmol/L (3.5-5.1); Sodium 138 mmol/L (136-145)
[2025-03-27 13:48] LABS: Anion Gap 12 (5-15); Calcium 8.9 mg/dL (8.7-10.4); Carbon Dioxide 23 mmol/L (20-31)
[2025-03-27 13:49] LABS: Hematocrit 47.7 % (41.0-53.0); Hemoglobin 16.4 g/dL (13.5-17.5); Mean Corpuscular Hemoglobin 31.1 pg (28.0-32.0); Mean Corpuscular Volume 90.5 fL (80.0-100.0); Nucleated Red Blood Cells % 0.0 %
[2025-03-27 13:53] LABS: BUN/Creatinine Ratio 8.3 (10.0-20.0); Glucose 89 mg/dL (74-106)
[2025-03-27 13:54] LABS: Blood Urea Nitrogen 8 mg/dL (9-23)
[2025-03-27] MEDS: ENOXAPARIN SOD 100 MG/1 ML SYRINGE SC ONE (14:00)
[2025-03-27 14:06] LABS: INR 1.01 (0.9-1.15); Partial Thromboplastin Time 26.5 SEC (24.5-34.5); Prothrombin Time 10.7 sec (9.3-11.8)
[2025-03-27] MEDS: IOHEXOL 350 MG/ML 100ML IJ ONE (14:07)
--- NOTE | 2025-03-27 14:11 | DVH ---
Bilateral lower extremity venous duplex Clinical History: possible PE Comparison: US BILAT LOWER DVT on DOS: 07/31/24 Findings: Duplex Doppler evaluation of the deep venous systems of both lower extremities from the common femoral veins to the popliteal veins including color Doppler and spectral/pulsed waveform analysis was performed. RIGHT SIDE: The common femoral vein demonstrates appropriate compressibility and waveform variability. There is compressibility/patency of the great saphenous vein at the proximal thigh. The femoral vein demonstrates appropriate compressibility and waveform variability. The deep femoral vein demonstrates appropriate compressibility and waveform variability. Thrombus within the popliteal vein. There is normal compressibility at the tibioperoneal trunk. LEFT SIDE: The common femoral vein demonstrates appropriate compressibility and waveform variability. There is compressibility/patency of the great saphenous vein at the proximal thigh. The femoral vein demonstrates appropriate compressibility and waveform variability. The deep femoral vein demonstrates appropriate compressibility and waveform variability. Thrombus within the popliteal vein. There is normal compressibility at the tibioperoneal trunk. IMPRESSION: Bilateral DVTs. END IMPRESSION: If clinical concern/symptoms persist or worsen, short-interval follow-up study is suggested. Critical Result: DVT Findings discussed with CARMINA BRITT at 03/27/2025 02:08 PM, and acknowledged receipt and understanding of the findings. ..
--- NOTE | 2025-03-27 14:46 | DVH ---
INDICATION: pain TECHNIQUE: Serial axial images from the thoracic inlet to the domes of the diaphragm were obtained after administration of 100 mL of Omnipaque 300 intravenously using the CTA PE protocol. Coronal and sagittal images were reconstructed. Multiplanar 3-D Maximum Intensity Projection images (MIP) reconstructions were created by the technologist in the coronal and sagittal planes as part of the CT angiography protocol. Dose lowering techniques have been used including automated exposure control and adjustment of mA and/or kv according to patient size. Comparison: CT CT CHEST/AB/PL W CON- IV ONLY on DOS: 12/04/24, CT ANGIO HEAD/NECK on DOS: 12/04/24, CT CT ANGIO CHEST CONTRAST on DOS: 07/31/24 FINDINGS: Pulmonary vasculature: Filling defects compatible with pulmonary emboli in the bilateral distal mainstem pulmonary arteries with extension into the segmental branches. Lungs: Limited evaluation due to motion. No focal consolidation. Hilar, mediastinal and axillary lymph nodes: No enlarged lymph nodes Aorta: Normal in size. Heart: Normal. Pleura: No pleural effusion Osseous structures: Normal Visualized portion of the abdomen: Grossly unremarkable. DLP is 832.9 mGy-cm. CTDI vol is 34 mGy. IMPRESSION: 1. Emboli extending from the bilateral pulmonary arteries into the segmental branches. *Findings communicated to Dr. Pierre by Dr. Aguilar of Radiology at 03/27/2025 2:44 PM
[2025-03-27] MEDS: ONDANSETRON HCL 4 MG/2 ML VIAL IV ONE (14:49)
[2025-03-27] MEDS: MORPHINE SULFATE 4 MG/ML SYR/VIAL IV ONE (14:50)
[2025-03-27] MEDS ORDERED: HEPARIN DRIP/D5W 100UNITS/ML 250 ML IV SCH (15:00)
[2025-03-27] MEDS: HEPARIN SODIUM (PORCINE) 5000 UNITS/ML 1ML VIAL IV ONE (15:44)
[2025-03-27] MEDS: HYDROmorphone HCL 2 MG/ML VL/or syr IV ONE (15:45)
[2025-03-27] MEDS ORDERED: ACETAMINOPHEN 325 MG TAB PO PRN (16:30)
--- NOTE | 2025-03-27 16:38 | DVHHPRES ---
History of Present Illness Resident Creating Document: DEWAYNE ALEXANDER RESIDENT History of Present Illness Patient is a 29-year-old male with past medical history of patent foramen ovale, homozygous for prothrombin gene mutation, who comes in due to chest pain and dyspnea. According to the patient, he woke up this morning around 7:30 a.m. with a sharp and burning left shoulder/shoulder blade pain, which then progressed to involve the left chest. Patient describes the pain as sharp, warm, constant in nature, radiating to the left chest, 10/10 in intensity at the time of onset, worsened with inspiration and movement, without any relieving factors and associated with shortness of breaths, dyspnea, and dizziness, which is what prompted this visit to the hospital. Patient notes he had similar symptoms in September 2023 when he was diagnosed with a pulmonary embolism and underwent thrombectomy x2. On review of systems patient is complaining of anxiety, negative for everything else at the time of my assessment. Lower extremity Doppler showed bilateral DVTs, CT angiography showed Emboli extending from the bilateral pulmonary arteries into the segmental branches. EKG shows some nonspecific repolarization abnormality. Past Medical History patent foramen ovale, homozygous for prothrombin gene mutation Past Surgical History Thrombectomy x2, hernia repair surgery Family History Patient has 5 other siblings, none of which have a hypercoagulable state Per patient's mother at bedside, both patient's parents also do not have any pathology that may predispose them to a hypercoagulable state Records reviewed from previous hospitalization, patient noted to be homozygous for prothrombin gene mutation Past Social History Smoking: Uses vape tobacco daily Alcohol: 4 drinks of malt liquor daily for the last 6 years Drugs: Uses marijuana daily Home medication: None Primary care doctor: Dr. Adria cadet Review of Systems Constitutional: No: Fever, Chills, Sweats, Weakness, Malaise, Other Eyes: No: Pain, Vision change, Conjunctivae inflammation, Eyelid inflammation, Other, Redness ENT: No: Ear pain, Ear discharge, Nose pain, Nose discharge, Nose congestion, Mouth pain, Mouth swelling, Throat pain, Throat swelling, Other Respiratory: No: Cough, Dry, Shortness of breath, SOB with excertion, Wheezing, Hemoptysis, Pleuritic Pain, Sputum, Wheezing, Other Cardiovascular: Chest Pain; No: Palpitations, Orthopnea, Paroxysmal Noc. Dyspnea, Edema, Lt Headedness, Other Gastrointestinal: No: Nausea, Vomiting, Abdominal Pain, Diarrhea, Constipation, Melena, Hematochezia, Other Genitourinary: No Dysuria, No Frequency, No Incontinence, No Hematuria, No Retention, No Other Musculoskeletal: back pain; No: other, neck pain, shoulder pain, arm pain, hand pain, leg pain, foot pain Skin: No: Rash, Lesions, Jaundice, Bruising, Other Neurological: No: Weakness, Numbness, Incoordination, Change in speech, Confusion, Seizures, Other Allergies: Coded Allergies: NO KNOWN ALLERGIES (Unverified , 07/18/23) Medications Current Medications Medications Dose Ordered Sig/Emigdio Route Start Time Stop Time Status Last Admin Dose Admin Heparin Sodium/ Dextrose 250 ml @ 14.724 mls/ hr [id number] IV 03/27/25 15:30 UNV Acetaminophen 325 mg Q4HP PRN PO 03/27/25 16:30 UNV Acetaminophen/ Hydrocodone Bitart 1 tab Q4HP PRN PO 03/27/25 16:30 UNV Morphine Sulfate 2 mg Q4HPRN PRN IV 03/27/25 16:30 UNV Exam Vital Signs Vital Signs Date Time Temp Pulse Resp B/P (MAP) Pulse Ox O2 Delivery O2 Flow Rate FiO2 03/27/25 16:30 76 03/27/25 15:45 12 109/68 03/27/25 15:00 99 03/27/25 13:45 98.1 98.1 03/27/25 13:00 Room Air* 0 21 General Appearance: Alert, Oriented X3, Cooperative, moderate distress HEENT: Atraumatic, PERRLA, EOMI, Mucous membr. moist/pink Respiratory: Normal air movement, Other (Coarse bilateral breath sounds) Cardiovascular: Regular rate Abdominal: Normal bowel sounds, Soft, No tenderness Extremities: Other (Left lower extremity cool to touch, positive pulses bilaterally, positive Kenney sign on right lower extremity) Neuro: Normal speech Psych/Mental Status: Mental status NL, Mood NL Labs/Xrays Labs Test 03/27/25 13:57 03/27/25 12:50 Range/Units Troponin I High Sensitivity < 3 L </=54 ng/L White Blood Count 4.9 4.4-10.8 10^3/uL Red Blood Count 5.28 4.5-5.90 10^6/uL Hemoglobin 16.4 13.5-17.5 g/dL Hematocrit 47.7 41.0-53.0 % Mean Corpuscular Volume 90.5 80.0-100.0 fL Mean Corpuscular Hemoglobin 31.1 28.0-32.0 pg Mean Corpuscular Hemoglobin Concent 34.4 32.0-36.0 g/dL Red Cell Distribution Width 12.5 11.8-14.3 % Platelet Count 151 140-450 10^3/uL Mean Platelet Volume 9.3 6.9-10.8 fL Neutrophils (%) (Auto) 72.1 37.0-80.0 % Lymphocytes (%) (Auto) 14.5 10.0-50.0 % Monocytes (%) (Auto) 8.9 0.0-12.0 % Eosinophils (%) (Auto) 3.9 0.0-7.0 % Basophils (%) (Auto) 0.6 0.0-2.0 % Neutrophils # (Auto) 3.5 1.6-8.6 10 ^3/uL Lymphocytes # (Auto) 0.7 0.4-5.4 10 ^3/uL Monocytes # (Auto) 0.4 0-1.3 10 ^3/uL Eosinophils # (Auto) 0.2 0-0.8 10 ^3/uL Basophils # (Auto) 0 0-0.2 10 ^3/uL Nucleated Red Blood Cells 0.0 % Prothrombin Time 10.7 9.3-11.8 sec Prothrombin Time INR 1.01 0.9-1.15 Activated Partial Thromboplast Time 26.5 24.5-34.5 SEC D-Dimer, Quantitative 5.14 H 0.0-0.49 mg/L FEU Sodium Level 138 136-145 mmol/L Potassium Level 3.7 3.5-5.1 mmol/L Chloride Level 103 98-107 mmol/L Carbon Dioxide Level 23 20-31 mmol/L Anion Gap 12 5-15 Blood Urea Nitrogen 8 L 9-23 mg/dL Creatinine 0.96 0.700-1.30 mg/dL Glomerular Filtration Rate Calc 110 >90 mL/min BUN/Creatinine Ratio 8.3 L 10.0-20.0 Serum Glucose 89 74-106 mg/dL Calcium Level 8.9 8.7-10.4 mg/dL B-Type Natriuretic Peptide 43.69 0-100 pg/mL SEPSIS Sepsis Screen Date sepsis recognized/suspect: Mar 27, 2025 Time Sepsis recognized/suspect: 1300 Recent Procedure: No On Antibiotic Therapy: No Respiratory Rate >20: Yes Heart Rate >90: No Temp<36 C (96.8 F) or >38.3 C: No SBP <90 or MAP <65 mmHG: No New Acute Mental Status Change: No Is the patient on CPAP, BIPAP,: No Physician Orders Electrocardigram (03/27/25 12:32) Electrocardigram (03/27/25 13:32) Electrocardigram (03/27/25 15:32) Chest Portable (03/27/25 12:41) Heplock Iv (03/27/25 12:41) Gang Supervisor (03/27/25 12:41) Blood Pressure (03/27/25 12:41) Pulse Oximetry (03/27/25 12:41) Urinalysis (03/27/25 12:41) Bilat Lower Dvt (03/27/25 12:41) Ct Angio Chest Contrast (03/27/25 12:41) * Radiologist Consult (03/27/25 14:45) Echo 2d Mode Cardiac Dop (03/27/25 15:24) Platelet Monitoring (03/27/25 15:29) Vte Protocol Initiated (03/27/25 15:29) Heparin Per Standardized Proce (03/27/25 15:29) Discontinue All Im Injections (03/27/25 15:29) Heparin Drip/D5w 100units/Ml (03/27/25 15:30) Communication Order (03/27/25 16:06) Npo After Midnight (03/27/25 16:06) Admit (03/27/25 16:22) Allergies (03/27/25 16:22) Code Status (03/27/25 16:22) Acetaminophen Tablet (Tylenol Tablet) (03/27/25 16:30) Hydrocodone-Acet 5/325mg Tab ([place] (03/27/25 16:30) Complete Blood Count (03/28/25 04:00) Comprehensive Metabolic Panel (03/28/25 04:00) Cardiac Diet-2gna,Lofat,Lochol (03/27/25 Dinner) Condition: Unstable (03/27/25 16:22) Morphine Sulfate Injection (03/27/25 16:30) Notify Of Changes From Base (03/27/25 16:22) Prothrombin Time W/ Inr (03/27/25 16:22) Drug Screen (03/27/25 16:22) Covid19 Antigen Barbara (03/27/25 ) Rapid Influenza A&B (03/27/25 16:31) Lactic Acid W/ Reflex Order (03/27/25 16:31) Troponin-I Hs (03/27/25 18:00) Vital Signs Date Time Temp Pulse Resp B/P (MAP) Pulse Ox O2 Delivery O2 Flow Rate FiO2 03/27/25 16:30 76 03/27/25 15:45 96 12 109/68 03/27/25 15:25 96 12 109/68 03/27/25 15:18 89 03/27/25 15:00 92 12 109/68 (82) 99 03/27/25 14:50 98 12 112/60 03/27/25 13:45 98.1 78 16 104/64 (77) 96 98.1 03/27/25 13:41 76 03/27/25 13:00 86 12 93 Room Air* 0 21 03/27/25 13:00 88 31 108/74 98 03/27/25 12:36 89 12 101/63 (76) 93 03/27/25 12:30 86 12 101/63 (76) 93 03/27/25 12:23 89 Laboratory Tests Test 03/27/25 12:50 White Blood Count 4.9 10^3/uL (4.4-10.8) Medications Medications Dose Ordered Sig/Emigdio Route Start Time Stop Time Status Last Admin Dose Admin Heparin Sodium (Porcine) 4,000 units ONCE ONCE IV 03/27/25 15:30 03/27/25 15:31 DC 03/27/25 15:44 4,000 UNITS Hydromorphone HCl 1 mg ONCE ONCE IV 03/27/25 15:30 03/27/25 15:31 DC 03/27/25 15:45 1 MG Morphine Sulfate 4 mg ONCE ONCE IV 03/27/25 14:30 03/27/25 14:31 DC 03/27/25 14:50 4 MG Ondansetron HCl 4 mg ONCE ONCE IV 03/27/25 14:30 03/27/25 14:31 DC 03/27/25 14:49 4 MG Assessment/Plan Assessment/Plan Pulmonary embolism, rule out cor pulmonale, 2nd episode Bilateral lower extremity DVT Homozygous for prothrombin gene mutation History of patent foramen ovale, unrepaired - CXR: No acute cardiopulmonary disease - lower extremity Doppler: Bilateral DVT - CT angiography: Emboli extending from the bilateral pulmonary arteries into the segmental branches. - heparin bolus 4000 units, followed by heparin drip per pharmacy - serial troponins, lactic acid, echocardiogram - interventional Radiology consult - NPO at midnight - patient will benefit from genetic counseling if he wishes to participate Medication noncompliance, secondary to insurance issues Alcohol use disorder Nicotine-dependence Marijuana dependence - counseled patient extensively on the importance of adhering to blood thinners, provided options for alternative blood thinners as well as warfarin, patient demonstrated understanding, we will revisit discussion closer to the time of discharge. - counseled patient extensively on the harmful effects of excessive alcohol, marijuana and nicotine on overall health and general well-being. Goals of care: Full code, discussed for >16 minutes on 03/27/2025 Plan discussed with patient and patient's mother at bedside for more than 20 minutes Plan discussed with Dr. Guillen Plan discussed with: Patient, Other (Mother, RN) My Orders Orders - DEWAYNE ALEXANDER RESIDENT Procedure Category Date Status Time Admit ADMIT 03/27/25 Transmitted 16:22 Allergies [facility] 03/27/25 In Process 16:22 Code Status CODE 03/27/25 Transmitted 16:22 Acetaminophen Tablet PHA 03/27/25 Logged (Tylenol Tablet) 16:30 Hydrocodone-Acet PHA 03/27/25 Logged 5/325mg Tab ([place] 16:30 Complete Blood Count LAB 03/28/25 Verified 04:00 Comprehensive LAB 03/28/25 Verified Metabolic Panel 04:00 Cardiac DIET 03/27/25 Transmitted Diet-2gna,Lofat,Lochol Dinner Condition: Unstable JEWELS 03/27/25 In Process 16:22 Morphine Sulfate PHA 03/27/25 Logged Injection 16:30 Notify Of Changes JEWELS 03/27/25 In Process From Base 16:22 Prothrombin Time W/ LAB 03/27/25 Logged INR 16:22 Drug Screen LAB 03/27/25 Logged 16:22 Covid19 Antigen Barbara LAB 03/27/25 Logged Rapid Influenza A&B LAB 03/27/25 Logged 16:31 Lactic Acid W/ Reflex LAB 03/27/25 Logged Order 16:31 Troponin-I Hs LAB 03/27/25 Logged 18:00 Date of Service: Mar 27, 2025 Billing Provider: ADRI GUILLEN MD Common Visit Codes: [id number] INP/OBS CARE (HIGH) Secondary Visit Codes: [id number] CARE PLAN 30 MINUTES DEWAYNE ALEXANDER RESIDENT Mar 27, 2025 16:38 ADRI GUILLEN MD Mar 30, 2025 17:04
--- NOTE | 2025-03-27 17:04 | CONS ---
Pharmacy Clinical Information: Heparin Protocol Baseline aPTT 26.5 at 12:50 02/24/25 Bolus 4000 units administered 15:44 03/27/25 Initial dose 1400 units/hr at 1700 03/27/25 next aPTT reading at 23:00 03/27/25 IWONA Alvarado acknowledged and read back Per RX Protocol PAUL TOSCANO PHARMACIST Mar 27, 2025 17:04
[2025-03-27] MEDS: HEPARIN DRIP/D5W 100UNITS/ML 250 ML IV SCH (17:09)
[2025-03-27 17:36] LABS: INR 1.03 (0.9-1.15); Prothrombin Time 10.9 sec (9.3-11.8)
[2025-03-27 17:47] LABS: Alanine Aminotransferase 25.0 U/L (7-40); Albumin 3.8 g/dL (3.2-4.8); Alkaline Phosphatase 114.0 U/L (46-116); Bilirubin, Direct 0.3 mg/dL (<0.3); Bilirubin, Total 0.7 mg/dL (0.2-1.0); Total Protein 6.7 g/dL (5.7-8.2)
--- NOTE | 2025-03-27 17:47 | ECG ---
[facility] Test Date: 2025-03-27 Test Time: 12:23:16 Pat Name: MARCO A LAMBERT Department: [facility] ED Room: 0236T Gender: M Compliance Mgr: SANDI : 1995 Requested By: CARMINA BRITT Order Number: [id number] Reading MD: Bryant Jarvis Measurements Intervals [place] Rate: 89 P: 12 MD: 136 QRS: 73 QRSD: 104 T: 61 QT: 387 QTc: 471 Interpretive Statements Sinus rhythm Inferior infarct, acute (LCx) Electronically Signed On 04-01-2025 10:08:43 PST by Bryant Jarvis Please click the below link to view image of tracing.
--- NOTE | 2025-03-27 17:47 | ECG ---
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
--- NOTE | 2025-03-27 17:48 | ECG ---
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
[2025-03-27 19:25] LABS: Urine Protein, UAD Negative (Negative)
[2025-03-27] MEDS: HYDROcodone-ACET 5/325MG TAB PO PRN (19:44)
[2025-03-27] MEDS: WARFARIN SODIUM 5 MG TAB PO ONE (19:50)
[2025-03-27 20:01] LABS: Opiate Scree,Urine Pos (NEGATIVE)
[2025-03-27 20:05] LABS: COVID19 ANTIGEN SOFIA FIA NEGATIVE (NEGATIVE)
[2025-03-27 20:06] LABS: Amphetamine Screen, Urine Neg (NEGATIVE); Barbiturate Scree,Urine Neg (NEGATIVE); Benzodiazephine Screen, Urine Neg (NEGATIVE); Cannabinoid Screen, Urine Pos (NEGATIVE); Cocaine Screen, Urine Pos (NEGATIVE); Phencyclidine Screen, Urine Neg (NEGATIVE)
[2025-03-27 20:11] VITALS: PULSE 93; O2SAT 97
[2025-03-27 21:44] VITALS: BP 97/66; PULSE 70; RESP 18; RESP 19; TEMP 97.3; O2SAT 100; O2SAT 99
[2025-03-27 23:25] LABS: INR 1.0 (0.9-1.15); Partial Thromboplastin Time 26.6 SEC (24.5-34.5); Prothrombin Time 10.6 sec (9.3-11.8)
[2025-03-28] VITALS (8 sets, daily range): BP systolic 106–123; BP diastolic 66–82; PULSE 63–101; RESP 15–19; TEMP 97.4–98.7; O2SAT 95–100
[2025-03-28] MEDS: HEPARIN SODIUM (PORCINE) 5000 UNITS/ML 1ML VIAL IV ONE (00:32)
[2025-03-28] MEDS: HEPARIN DRIP/D5W 100UNITS/ML 250 ML IV SCH (00:33)
[2025-03-28] MEDS: MORPHINE SULFATE INJ 2 MG/ml SYRG IV PRN (00:35)
[2025-03-28] MEDS: PANTOPRAZOLE 40 MG TAB PO SCH (06:07)
[2025-03-28 06:23] LABS: Hematocrit 43.6 % (41.0-53.0); Hemoglobin 15.4 g/dL (13.5-17.5); Mean Corpuscular Hemoglobin 31.8 pg (28.0-32.0); Mean Corpuscular Volume 90.1 fL (80.0-100.0); Nucleated Red Blood Cells % 0.0 %
[2025-03-28 06:40] LABS: INR 0.97 (0.9-1.15); Partial Thromboplastin Time 27.1 SEC (24.5-34.5); Prothrombin Time 10.3 sec (9.3-11.8)
[2025-03-28 06:49] LABS: Alanine Aminotransferase 17 U/L (7-40); Alkaline Phosphatase 100 U/L (46-116); Anion Gap 10 (5-15); BUN/Creatinine Ratio 7.7 (10.0-20.0); Carbon Dioxide 25 mmol/L (20-31); Chloride 103 mmol/L (98-107); Glucose 96 mg/dL (74-106); Sodium 138 mmol/L (136-145); Total Protein 6.2 g/dL (5.7-8.2)
[2025-03-28 06:50] LABS: Albumin 3.5 g/dL (3.2-4.8); Bilirubin, Total 0.8 mg/dL (0.2-1.0)
[2025-03-28 06:51] LABS: Blood Urea Nitrogen 6 mg/dL (9-23); Calcium 8.7 mg/dL (8.7-10.4); Potassium 3.4 mmol/L (3.5-5.1)
--- NOTE | 2025-03-28 09:29 | CONS ---
Pharmacy Clinical Information: 05:49 aPTT 27.1 despite having 5000 units bolus and rate increased to 1700 u nits/hr Talked to IWONA Weinstein to verify line and rate. The heparin drip rate was in fact running at 17 units/hr Asked Js to fix rate at 1700 units/hr at 9:20 and will re-check aPTT at 1530 Confirmed and read back by PJ Arriaga [facility] RESIDENT Mar 28, 2025 09:29
--- NOTE | 2025-03-28 09:55 | DVHPNRES ---
Progress Note Date Seen: Mar 28, 2025 Resident Creating Document: SUSHILA WAYNE RESIDENT Medical Necessity Reason Pt with a Central, PICC or Fol: No Subjective Review of Systems Brief history on admission: This is a 29-year-old male with past medical history of patent foramen ovale, homozygous for prothrombin gene mutation, recurrent DVT, PE, presented with chief complain of chest pain and dyspnea. According to the patient, he woke up on the morning of 02/24/25, around 7:30 a.m. with a sharp and burning left shoulder/shoulder blade pain, which then progressed to involve the left chest. Patient describes the pain as sharp, warm, constant in nature, radiating to the left chest, 10/10 in intensity at the time of onset, worsened with inspiration and movement, without any relieving factors and associated with shortness of breaths, dyspnea, and dizziness, which is what prompted this visit to the hospital. Patient notes he had similar symptoms in September 2023 when he was diagnosed with a pulmonary embolism and underwent thrombectomy x2. On review of systems patient is complaining of anxiety, negative for everything else at the time of my assessment. Lower extremity Doppler showed bilateral DVTs, CT angiography showed Emboli extending from the bilateral pulmonary arteries into the segmental branches. EKG shows some nonspecific repolarization abnormality. Previous hospitalization: [place] 1-05/24 year back for thrombectomy for PE PMHx: Patent foramen ovale, homozygous for prothrombin gene mutation PSHx: Thrombectomy x2, hernia repair surgery Family history: Both parents are carrier for prothrombin gene mutation Social history: Smokes nicotine, uses marijuana and cocaine (last used-last week). Denies other drug use, alcohol use. Home medication: None; patient ran out of insurance and did not continue Eliquis prescribed in [place] Allergic history: No known allergy Primary care doctor: Dr. Adria cadet ROS: Constitutional: Denies weight loss, fever and chills. HEENT: Denies changes in vision and hearing. Respiratory: Pleuritic Chest pain, SOB Cardiovascular: Denies chest discomfort or palpitations GI: Denies abdominal pain, nausea, vomiting and diarrhea. : Denies dysuria and urinary frequency. Musculoskeletal: B/L calf pain Skin: Denies rash and pruritus. Neurological: Denies dizziness, headache, vision or hearing problems 03/28/2025: Patient was seen at bedside. Complains of 8 on 10 chest pain on deep inspiration. Objective vital signs Vital Sign Date Time Temp Pulse Resp B/P (MAP) Pulse Ox O2 Delivery O2 Flow Rate FiO2 03/28/25 08:48 97.9 63 15 107/76 (86) 98 97.9 03/27/25 21:44 Nasal Cannula* 4 36 Total Intake and Output 03/27/25 03/27/25 03/28/25 15:00 23:00 07:00 Intake Total 14 ml 0 ml Output Total 225 ml Balance 14 ml -225 ml medications Current Medications Medications Dose Ordered Sig/Emigdio Route Start Time Stop Time Status Last Admin Dose Admin Acetaminophen 325 mg Q4HP PRN PO 03/27/25 16:30 Acetaminophen/ Hydrocodone Bitart 1 tab Q4HP PRN PO 03/27/25 16:30 03/27/25 19:44 1 TAB Morphine Sulfate 2 mg Q4HPRN PRN IV 03/27/25 16:30 03/28/25 00:35 2 MG Warfarin Sodium RX PROTOCOL target ... PER PHARMACY PO 03/27/25 18:00 Hold Pantoprazole Sodium 40 mg DAILY@0600 PO 03/28/25 06:00 03/28/25 06:07 40 MG Heparin Sodium/ Dextrose 250 ml @ 17 mls/hr [id number] IV 03/28/25 00:15 03/28/25 00:33 17 MLS/HR Examination General: Patient alert and oriented in person, place and time. Patient following commands. HEENT: Normocephalic, atraumatic, moist mucous membranes Respiratory/pulmonary: Reduced breath sounds bilaterally. Cardiovascular: Normal heart sounds S1 and S2 with no associated murmurs Abdomen: Abdomen nondistended, there is no pain to palpation in any of the abdominal quadrants, no palpable masses. Extremities: There is no peripheral edema present at the lower extremities. Peripheral Pulses: 3+ Radial (R). 3+ Radial (L). 3+ Dorsalis pedis (R). 3+ Dorsalis pedis(L) Skin: No rashes or pruritus, there is no sacral edema present at this time. Neurological: Intact cranial nerves with no focal neurologic deficits laboratory and microbiology Laboratory Tests 03/28/25 05:49 Test 03/28/25 05:49 Range/Units Serum Glucose 96 74-106 mg/dL Problem List/Assessment/Plan Problem List/Assessment/Plan Pulmonary embolism, rule out cor pulmonale, 2nd episode Bilateral lower extremity DVT History of recurrent PE and DVTs S/P Thrombectomy Homozygous for prothrombin gene mutation History of patent foramen ovale, unrepaired CXR shows no acute cardiopulmonary disease Lower extremity doppler shows bilateral DVT in popliteal veins CT angiography: Emboli extending from the bilateral pulmonary arteries into the segmental branches. Heparin bolus 4000 units, followed by heparin drip per pharmacy Serial troponins, lactic acid, echocardiogram Interventional Radiology consulted NPO at midnight Patient will benefit from genetic counseling if he wishes to participate Planned IVC filter placement Will start Warfarin after the procedure considering patient not having insurance was a factor in non-compliance to Eliquis in the past Medication noncompliance, secondary to insurance issues Alcohol use disorder Nicotine-dependence Marijuana dependence Polysubstance abuse Counseled patient extensively on the importance of adhering to blood thinners, provided options for alternative blood thinners as well as warfarin, patient demonstrated understanding, we will revisit discussion closer to the time of discharge. UDS positive for cocaine, cannabis Counseled patient on bedside for more than 12 minutes on cessation of drug abuse DIET: NPO DVT PROPHYLAXIS: Lovenox GI PROPHYLAXIS: Protonix CODE STATUS: Goals of care discussed with patient at bedside for more than 35 minutes. Full code DISPOSITION: Med/surge This medical document was created using an electronic medical record system with [employer] direct computerized dictation system. Although this document has been carefully reviewed, there may still be some phonetic and typographical errors. These areas are purely typographical due to imperfections of the software programs, and do not reflect any compromise in the patient's medical care. Patient's status and plan discussed with the patient. Case discussed with Dr. Mcadams. Plan discussed with: Patient, Other (nurses) My Orders My Orders Orders - SUSHILA WAYNE RESIDENT Procedure Category Date Status Time Potassium LAB 03/28/25 Logged 12:00 Date of Service: Mar 28, 2025 Billing Provider: ADRI RENTERIA MD Common Visit Codes: [id number] INP/OBS CARE(HIGH) SUSHILA WAYNE RESIDENT Mar 28, 2025 09:55 ADRI RENTERIA MD Mar 30, 2025 17:04
[2025-03-28] MEDS: POTASSIUM EFFERVESENT TAB 25 MEQ PO ONE (14:22)
[2025-03-28 16:04] LABS: INR 0.98 (0.9-1.15); Partial Thromboplastin Time 51.6 SEC (24.5-34.5); Prothrombin Time 10.4 sec (9.3-11.8)
--- NOTE | 2025-03-28 16:27 | CONS ---
Pharmacy Clinical Information: HEPARIN DRIP, DVT PROTOCOL @15:17 APTT 51.6 - NO BOLUS / NO CHANGE, CONTINUE HEPARIN DRIP AT RATE 1700 UNITS/HR NEXT APTT DRAW SCHEDULED @2100 PER RX PROTOCOL CONFIRMED AND READ BACK WITH IWONA ROGERS,[facility] Mar 28, 2025 16:27
[2025-03-28 21:46] LABS: INR 0.97 (0.9-1.15); Partial Thromboplastin Time 62.2 SEC (24.5-34.5); Prothrombin Time 10.3 sec (9.3-11.8)
[2025-03-29] VITALS (10 sets, daily range): BP systolic 90–111; BP diastolic 61–74; PULSE 61–92; RESP 12–18; TEMP 97.3–98.9; O2SAT 96–99
[2025-03-29 03:36] LABS: Anion Gap 7 (5-15); Carbon Dioxide 29 mmol/L (20-31); Chloride 104 mmol/L (98-107); Potassium 3.6 mmol/L (3.5-5.1); Sodium 140 mmol/L (136-145)
[2025-03-29 03:37] LABS: Calcium 8.9 mg/dL (8.7-10.4)
[2025-03-29 03:38] LABS: Hematocrit 45.5 % (41.0-53.0); Hemoglobin 15.7 g/dL (13.5-17.5); Mean Corpuscular Hemoglobin 31.4 pg (28.0-32.0); Mean Corpuscular Volume 90.9 fL (80.0-100.0); Nucleated Red Blood Cells % 0.4 %
[2025-03-29 03:40] LABS: INR 0.95 (0.9-1.15); Partial Thromboplastin Time 36.9 SEC (24.5-34.5); Prothrombin Time 10.1 sec (9.3-11.8)
[2025-03-29 03:42] LABS: BUN/Creatinine Ratio 6.7 (10.0-20.0)
[2025-03-29 03:52] LABS: Blood Urea Nitrogen 6 mg/dL (9-23); Glucose 106 mg/dL (74-106)
[2025-03-29] MEDS: HEPARIN DRIP/D5W 100UNITS/ML 250 ML IV SCH ×2 (04:00→14:18)
[2025-03-29] MEDS: fentaNYL CITRATE 100 MCG/2 ML VL ONE ×2 (08:47→10:51)
[2025-03-29] MEDS: HEPARIN SODIUM (PORCINE) 5000 UNITS/ML 1ML VIAL ONE (08:47)
[2025-03-29] MEDS: MIDAZOLAM HCL 2MG/2ML 2ml VIAL (1mg/ml) ONE ×2 (08:48→10:51)
[2025-03-29] MEDS: LIDOCAINE 2%HCL (LOCAL ANESTH.) INJ 20ML MDV ONE (08:48)
[2025-03-29 12:50] LABS: INR 0.98 (0.9-1.15); Prothrombin Time 10.4 sec (9.3-11.8)
[2025-03-29 13:01] LABS: Partial Thromboplastin Time 123.6 SEC (24.5-34.5)
--- NOTE | 2025-03-29 14:03 | CONS ---
Pharmacy Clinical Information: HEPARIN HELD FOR 1HOUR AND WILL RESUME HEPARIN AT 16 ML/HR AT 1410 SINCE APTT 123.6 AT 1150 03/29/25 PER RX PROTOCOL. PER JIMBO BUSTILLO AWARE OF NEW RATE CHANGE FROM 19 ML/HR TO 16 ML/HR AND REPEATED BACK ORDER ABIGAIL TOSCANO PHARMACIST Mar 29, 2025 14:03
--- NOTE | 2025-03-29 14:06 | DVH ---
XY INFERIOR VENA CAVA FILTER, XY PERCU.VENOUS THROMBECTOMY, HISTORY: INFERIOR VENA CAVA FILTER PROCEDURE: Informed consent was obtained. The patient was placed on the fluoroscopic table in supine position. The right groin was prepped with chlorhexidine which was allowed to dry and draped in the usual sterile fashion. Time out was performed. Following administration of 1% local lidocaine, the com mon femoral vein was accessed with a micropuncture set under ultrasound guidance, and an image documenting patency sent to PACS. A 6 Fr sheath was placed into the iliac vein and a venocavogram was obtained. A wire was placed into the left brachiocephalic vein. A 16 Fr Inari sheath was placed into the r ight iliac vein. An Inari Clot Treiver thrombectomy device was used to mechanically extract the IVC thrombus. A catheter was placed into the left iliac vein and a venocavogram obtained. A completion venocavogram was obtained. The catheter was exchanged for a 9.6 [place] introducer sheath, and a Bard G2 [place] IVC filter was deployed in an infrarenal location. The introducer sheath was removed and the venotomy closed with manual compression. Post-deployment image was obtained. No immediate complication was identified. DAP 1241 mGy FLUOROSCOPY TIME: 5.5 minutes. CONTRAST USED: 50 mL. SEDATION: Dr. Jackie Dos Santos was personally responsible for the administration of moderate sedation during the procedure performed, including the use of an independent trained observer who had no other duties during the procedure. The drugs utilized were IV fentanyl and versed (see nursing log for details). The total time of supervision by the attending physician was approximately 75 minutes. FINDINGS: There is a single IVC visualized with intraluminal filling defect from L2-L5 which was removed with mechanical thrombectomy. No renal venous anomaly is noted. Post-procedure image demonstrates good positioning of the IVC filter in an infrarenal position. IMPRESSION: IVC visualized with intraluminal thrombus from L2-L5 which was removed with mechanical thrombectomy. Post-procedure image demonstrates good positioning of the IVC filter in an infrarenal position. PLAN: Resume anticoagulation. Remove flowstasis after 24 hours. Recommend ambulation. Discussed at length with patient mother and patient to get the filter removed DALE.
[2025-03-29] MEDS ORDERED: WARFARIN SODIUM 5 MG TAB PO ONE (17:00)
[2025-03-29] MEDS: WARFARIN SODIUM 2.5 MG TAB PO ONE (17:16)
--- NOTE | 2025-03-29 17:16 | DVHPNRES ---
Progress Note Date Seen: Mar 29, 2025 Resident Creating Document: SUSHILA WAYNE RESIDENT Medical Necessity Reason Pt with a Central, PICC or Fol: No Subjective Review of Systems Brief history on admission: This is a 29-year-old male with past medical history of patent foramen ovale, homozygous for prothrombin gene mutation, recurrent DVT, PE, presented with chief complain of chest pain and dyspnea. According to the patient, he woke up on the morning of 02/24/25, around 7:30 a.m. with a sharp and burning left shoulder/shoulder blade pain, which then progressed to involve the left chest. Patient describes the pain as sharp, warm, constant in nature, radiating to the left chest, 10/10 in intensity at the time of onset, worsened with inspiration and movement, without any relieving factors and associated with shortness of breaths, dyspnea, and dizziness, which is what prompted this visit to the hospital. Patient notes he had similar symptoms in September 2023 when he was diagnosed with a pulmonary embolism and underwent thrombectomy x2. On review of systems patient is complaining of anxiety, negative for everything else at the time of my assessment. Lower extremity Doppler showed bilateral DVTs, CT angiography showed Emboli extending from the bilateral pulmonary arteries into the segmental branches. EKG shows some nonspecific repolarization abnormality. Previous hospitalization: [place] 1-05/24 year back for thrombectomy for PE PMHx: Patent foramen ovale, homozygous for prothrombin gene mutation PSHx: Thrombectomy x2, hernia repair surgery Family history: Both parents are carrier for prothrombin gene mutation Social history: Smokes nicotine, uses marijuana and cocaine (last used-last week). Denies other drug use, alcohol use. Home medication: None; patient ran out of insurance and did not continue Eliquis prescribed in [place] Allergic history: No known allergy Primary care doctor: Dr. Adria cadet 03/28/2025: Complains of 8 on 10 chest pain on deep inspiration. 03/29/2025: Patient was seen at bedside today. Underwent thrombectomy and IVC filter placement. Started on warfarin, considering patient not having insurance was a factor in non-compliance to Eliquis in the past. Objective vital signs Vital Sign Date Time Temp Pulse Resp B/P (MAP) Pulse Ox O2 Delivery O2 Flow Rate FiO2 03/29/25 11:45 64 15 90/61 (71) 96 03/29/25 11:15 98.1 98.1 03/29/25 08:00 Room Air* 0 21 Total Intake and Output 03/28/25 03/28/25 03/29/25 15:00 23:00 07:00 Intake Total 380 ml 0 ml Balance 380 ml 0 ml medications Current Medications Medications Dose Ordered Sig/Emigdio Route Start Time Stop Time Status Last Admin Dose Admin Acetaminophen 325 mg Q4HP PRN PO 03/27/25 16:30 Acetaminophen/ Hydrocodone Bitart 1 tab Q4HP PRN PO 03/27/25 16:30 03/29/25 12:45 1 TAB Morphine Sulfate 2 mg Q4HPRN PRN IV 03/27/25 16:30 03/28/25 10:32 2 MG Warfarin Sodium RX PROTOCOL target ... PER PHARMACY PO 03/27/25 18:00 Cancel Pantoprazole Sodium 40 mg DAILY@0600 PO 03/28/25 06:00 03/28/25 06:07 40 MG Heparin Sodium/ Dextrose 250 ml @ 16 mls/hr [id number] IV 03/29/25 14:10 03/29/25 14:18 16 MLS/HR Warfarin Sodium RX PROTOCOL PER PHARMACY PO 03/29/25 15:45 Examination General: Patient alert and oriented in person, place and time. Patient following commands. HEENT: Normocephalic, atraumatic, moist mucous membranes Respiratory/pulmonary: Reduced breath sounds bilaterally. Cardiovascular: Normal heart sounds S1 and S2 with no associated murmurs Abdomen: Abdomen nondistended, there is no pain to palpation in any of the abdominal quadrants, no palpable masses. Extremities: Vascular occlusion device and inguinal area. There is no peripheral edema present at the lower extremities. Peripheral Pulses: 3+ Radial (R). 3+ Radial (L). 3+ Dorsalis pedis (R). 3+ Dorsalis pedis(L) Skin: No rashes or pruritus, there is no sacral edema present at this time. Neurological: Intact cranial nerves with no focal neurologic deficits laboratory and microbiology Laboratory Tests 03/29/25 02:45 Test 03/29/25 02:45 Range/Units Serum Glucose 106 74-106 mg/dL Microbiology Date/Time Source Procedure Growth Status 03/27/25 18:09 Blood Blood Culture - Preliminary NO GROWTH AFTER 24 HOURS OF INCUBATION. Resulted Problem List/Assessment/Plan Problem List/Assessment/Plan Pulmonary embolism, rule out cor pulmonale, 2nd episode S/p thrombectomy S/p IVC infrarenal filter placement Bilateral lower extremity DVT History of recurrent PE and DVTs S/P Thrombectomy Homozygous for prothrombin gene mutation History of patent foramen ovale, unrepaired CXR shows no acute cardiopulmonary disease Lower extremity doppler shows bilateral DVT in popliteal veins CT angiography: Emboli extending from the bilateral pulmonary arteries into the segmental branches. Heparin bolus 4000 units, followed by heparin drip per pharmacy Serial troponins, lactic acid, echocardiogram NPO at midnight Patient will benefit from genetic counseling if he wishes to participate Interventional radiology on board Status post IVC infrarenal filter placement and thrombectomy (03/29/25) Started on warfarin, loading dose given today; will be followed by per pharmacy monitor INR closely Medication noncompliance, secondary to insurance issues Alcohol use disorder Nicotine-dependence Marijuana dependence Polysubstance abuse Counseled patient extensively on the importance of adhering to blood thinners, provided options for alternative blood thinners as well as warfarin, patient demonstrated understanding, we will revisit discussion closer to the time of discharge. UDS positive for cocaine, cannabis DIET: NPO DVT PROPHYLAXIS: Lovenox GI PROPHYLAXIS: Protonix CODE STATUS: Goals of care discussed with patient at bedside for more than 35 minutes. Full code DISPOSITION: Med/surge This medical document was created using an electronic medical record system with [employer] direct computerized dictation system. Although this document has been carefully reviewed, there may still be some phonetic and typographical errors. These areas are purely typographical due to imperfections of the software programs, and do not reflect any compromise in the patient's medical care. Patient's status and plan discussed with the patient. Case discussed with Dr. Guillen Plan discussed with: Patient, Other (Nurses) My Orders My Orders Orders - SUSHILA WAYNE RESIDENT Procedure Category Date Status Time Percu.Venous XY 03/29/25 Resulted Thrombectomy 11:19 Date of Service: Mar 29, 2025 Billing Provider: ADRI GUILLEN MD Common Visit Codes: [id number] INP/OBS CARE(HIGH) SUSHILA WAYNE RESIDENT Mar 29, 2025 17:16 ADRI GUILLEN MD Mar 30, 2025 17:04
[2025-03-29 20:44] LABS: INR 0.97 (0.9-1.15); Partial Thromboplastin Time 59.9 SEC (24.5-34.5); Prothrombin Time 10.3 sec (9.3-11.8)
[2025-03-30] VITALS (8 sets, daily range): BP systolic 96–110; BP diastolic 58–77; PULSE 65–89; RESP 16–18; TEMP 97.6–98.6; O2SAT 95–99
[2025-03-30 02:04] LABS: Hematocrit 46.3 % (41.0-53.0); Hemoglobin 15.9 g/dL (13.5-17.5); Mean Corpuscular Hemoglobin 31.2 pg (28.0-32.0); Mean Corpuscular Volume 91.0 fL (80.0-100.0); Nucleated Red Blood Cells % 0.1 %
[2025-03-30 02:18] LABS: INR 0.95 (0.9-1.15); Partial Thromboplastin Time 51.0 SEC (24.5-34.5); Prothrombin Time 10.1 sec (9.3-11.8)
[2025-03-30 02:23] LABS: Alanine Aminotransferase 21 U/L (7-40); Albumin 3.6 g/dL (3.2-4.8); Alkaline Phosphatase 99 U/L (46-116); Anion Gap 7 (5-15); BUN/Creatinine Ratio 7.5 (10.0-20.0); Bilirubin, Total 0.4 mg/dL (0.2-1.0); Calcium 9.1 mg/dL (8.7-10.4); Carbon Dioxide 28 mmol/L (20-31); Chloride 103 mmol/L (98-107); Glucose 96 mg/dL (74-106); Potassium 3.6 mmol/L (3.5-5.1); Sodium 138 mmol/L (136-145); Total Protein 6.4 g/dL (5.7-8.2)
[2025-03-30 02:38] LABS: Blood Urea Nitrogen 6 mg/dL (9-23)
[2025-03-30 10:14] LABS: INR 0.97 (0.9-1.15); Partial Thromboplastin Time 49.3 SEC (24.5-34.5); Prothrombin Time 10.3 sec (9.3-11.8)
[2025-03-30] MEDS: HEPARIN DRIP/D5W 100UNITS/ML 250 ML IV SCH ×2 (10:30→17:45)
--- NOTE | 2025-03-30 14:45 | CONS ---
Pharmacy Clinical Information: INCREASE HEPARIN RATE TO 18 ML/HR DUE TO APTT OF 49.3 PER RX PROTOCOL. NEXT APTT ON 03/30 AT 1630. [employer] [employer] CONFIRMED AND READ BACK ABIGAIL TOSCANO PHARMACIST Mar 30, 2025 14:45
--- NOTE | 2025-03-30 14:46 | DVHPNRES ---
Progress Note Date Seen: Mar 30, 2025 Resident Creating Document: MARU WILD Medical Necessity Reason Pt with a Central, PICC or Fol: No Subjective Review of Systems Patient seen at bedside. Complains of mild chest pain while walking, but reports that the pain has decreased from the last day. INR 0.9, midnight. This is a 29-year-old male with past medical history of patent foramen ovale, homozygous for prothrombin gene mutation, recurrent DVT, PE, presented with chief complain of chest pain and dyspnea. According to the patient, he woke up on the morning of 02/24/25, around 7:30 a.m. with a sharp and burning left shoulder/shoulder blade pain, which then progressed to involve the left chest. Patient describes the pain as sharp, warm, constant in nature, radiating to the left chest, 10/10 in intensity at the time of onset, worsened with inspiration and movement, without any relieving factors and associated with shortness of breaths, dyspnea, and dizziness, which is what prompted this visit to the hospital. Patient notes he had similar symptoms in September 2023 when he was diagnosed with a pulmonary embolism and underwent thrombectomy x2. On review of systems patient is complaining of anxiety, negative for everything else at the time of my assessment. Lower extremity Doppler showed bilateral DVTs, CT angiography showed Emboli extending from the bilateral pulmonary arteries into the segmental branches. EKG shows some nonspecific repolarization abnormality. Previous hospitalization: [place] year back for thrombectomy for PE PMHx: Patent foramen ovale, homozygous for prothrombin gene mutation PSHx: Thrombectomy x2, hernia repair surgery Family history: Both parents are carrier for prothrombin gene mutation Social history: Smokes nicotine, uses marijuana and cocaine (last used-last week). Denies other drug use, alcohol use. Home medication: None; patient ran out of insurance and did not continue Eliquis prescribed in [place] Allergic history: No known allergy Primary care doctor: Dr. Adria cadet Objective vital signs Vital Sign Date Time Temp Pulse Resp B/P (MAP) Pulse Ox O2 Delivery O2 Flow Rate FiO2 03/30/25 09:00 97.6 74 18 106/65 (79) 96 97.6 03/29/25 20:00 Room Air* 0 21 Total Intake and Output 1103/29/25 03/30/25 15:00 23:00 07:00 Intake Total 114 ml 546 ml 796 ml Output Total 850 ml 1075 ml Balance 114 ml -304 ml -279 ml medications Current Medications Medications Dose Ordered Sig/Emigdio Route Start Time Stop Time Status Last Admin Dose Admin Acetaminophen 325 mg Q4HP PRN PO 03/27/25 16:30 Acetaminophen/ Hydrocodone Bitart 1 tab Q4HP PRN PO 03/27/25 16:30 03/30/25 05:59 1 TAB Morphine Sulfate 2 mg Q4HPRN PRN IV 03/27/25 16:30 03/28/25 10:32 2 MG Warfarin Sodium RX PROTOCOL target ... PER PHARMACY PO 03/27/25 18:00 Cancel Pantoprazole Sodium 40 mg DAILY@0600 PO 03/28/25 06:00 03/30/25 05:55 40 MG Warfarin Sodium RX PROTOCOL PER PHARMACY PO 03/29/25 15:45 Heparin Sodium/ Dextrose 250 ml @ 18 mls/hr [id number] IV 03/30/25 10:30 03/30/25 10:30 18 MLS/HR Examination General: Patient alert and oriented in person, place and time. Patient following commands. HEENT: Normocephalic, atraumatic, moist mucous membranes Respiratory/pulmonary: Reduced breath sounds bilaterally. Cardiovascular: Normal heart sounds S1 and S2 with no associated murmurs Abdomen: Abdomen nondistended, there is no pain to palpation in any of the abdominal quadrants, no palpable masses. Extremities: Vascular occlusion device and inguinal area. There is no peripheral edema present at the lower extremities. Peripheral Pulses: 3+ Radial (R). 3+ Radial (L). 3+ Dorsalis pedis (R). 3+ Dorsalis pedis(L) Skin: No rashes or pruritus, there is no sacral edema present at this time. Neurological: Intact cranial nerves with no focal neurologic deficits laboratory and microbiology Laboratory Tests 03/30/25 01:45 Test 03/30/25 01:45 Range/Units Serum Glucose 96 74-106 mg/dL Microbiology Date/Time Source Procedure Growth Status 03/27/25 18:09 Blood Blood Culture - Preliminary NO GROWTH AFTER 48 HOURS OF INCUBATION. Resulted Problem List/Assessment/Plan Problem List/Assessment/Plan Assessment and plan Pulmonary embolism, rule out cor pulmonale, 2nd episode S/p thrombectomy S/p IVC infrarenal filter placement Bilateral lower extremity DVT History of recurrent PE and DVTs S/P Thrombectomy Homozygous for prothrombin gene mutation History of patent foramen ovale, unrepaired CXR shows no acute cardiopulmonary disease Lower extremity doppler shows bilateral DVT in popliteal veins CT angiography: Emboli extending from the bilateral pulmonary arteries into the segmental branches. Heparin bolus 4000 units, followed by heparin drip per pharmacy Serial troponins, lactic acid, echocardiogram NPO at midnight Patient will benefit from genetic counseling if he wishes to participate Interventional radiology on board Status post IVC infrarenal filter placement and thrombectomy (03/29/25) Started on warfarin, loading dose given today; will be followed by per pharmacy monitor INR closely Medication noncompliance, secondary to insurance issues Alcohol use disorder Nicotine-dependence Marijuana dependence Polysubstance abuse Counseled patient extensively on the importance of adhering to blood thinners, provided options for alternative blood thinners as well as warfarin, patient demonstrated understanding, we will revisit discussion closer to the time of discharge. UDS positive for cocaine, cannabis DIET: NPO DVT PROPHYLAXIS: Lovenox GI PROPHYLAXIS: Protonix DISPOSITION: Med/surge Case discussed with Dr. Guillen Plan discussed with: Patient My Orders My Orders Orders - MARU WILD Procedure Category Date Status Time Complete Blood Count LAB 03/31/25 Verified 04:00 Basic Metabolic Panel LAB 03/31/25 Verified 04:00 PTPTT LAB 03/31/25 Verified 04:00 Date of Service: Mar 30, 2025 Billing Provider: ADRI GUILLEN MD Common Visit Codes: [id number] INP/OBS CARE(MOD) MARU WILD Mar 30, 2025 14:46 ADRI GUILLEN MD Mar 30, 2025 17:04
[2025-03-30 17:05] LABS: INR 1.03 (0.9-1.15); Prothrombin Time 10.9 sec (9.3-11.8)
[2025-03-30 17:29] LABS: Partial Thromboplastin Time 78.3 SEC (24.5-34.5)
--- NOTE | 2025-03-30 17:43 | CONS ---
Pharmacy Clinical Information: DECREASE HEPARIN RATE TO 16 ML/HR DUE TO APTT OF 78.3 PER RX PROTOCOL. NEXT APTT ON 03/30 AT 2230. [employer] CONFIRMED AND READ BACK ABIGAIL TOSCANO PHARMACIST Mar 30, 2025 17:43
[2025-03-30] MEDS: WARFARIN SODIUM 2.5 MG TAB PO ONE (18:00)
[2025-03-30 22:25] LABS: INR 1.06 (0.9-1.15); Partial Thromboplastin Time 63.9 SEC (24.5-34.5); Prothrombin Time 11.2 sec (9.3-11.8)
[2025-03-31] VITALS (8 sets, daily range): BP systolic 90–106; BP diastolic 54–70; PULSE 58–94; RESP 16–19; TEMP 97.8–98.4; O2SAT 97–99
[2025-03-31 04:46] LABS: Hematocrit 45.7 % (41.0-53.0); Hemoglobin 15.8 g/dL (13.5-17.5); Mean Corpuscular Hemoglobin 31.3 pg (28.0-32.0); Mean Corpuscular Volume 90.7 fL (80.0-100.0); Nucleated Red Blood Cells % 0.4 %
[2025-03-31 04:49] LABS: Anion Gap 9 (5-15); Carbon Dioxide 30 mmol/L (20-31); Chloride 100 mmol/L (98-107); Potassium 4.2 mmol/L (3.5-5.1); Sodium 139 mmol/L (136-145)
[2025-03-31 04:51] LABS: Calcium 9.2 mg/dL (8.7-10.4)
[2025-03-31 04:56] LABS: BUN/Creatinine Ratio 7.0 (10.0-20.0); Glucose 88 mg/dL (74-106)
[2025-03-31 05:56] LABS: INR 1.08 (0.9-1.15); Partial Thromboplastin Time 48.0 SEC (24.5-34.5); Prothrombin Time 11.4 sec (9.3-11.8)
[2025-03-31 06:15] LABS: Blood Urea Nitrogen 7 mg/dL (9-23)
[2025-03-31] MEDS: HEPARIN DRIP/D5W 100UNITS/ML 250 ML IV SCH ×2 (06:35→20:06)
--- NOTE | 2025-03-31 13:07 | DVHPNRES ---
Progress Note Date Seen: Mar 31, 2025 Resident Creating Document: SUSHILA WAYNE RESIDENT Medical Necessity Reason Pt with a Central, PICC or Fol: No Subjective Review of Systems Brief history on admission: This is a 29-year-old male with past medical history of patent foramen ovale, homozygous for prothrombin gene mutation, recurrent DVT, PE, presented with chief complain of chest pain and dyspnea. According to the patient, he woke up on the morning of 02/24/25, around 7:30 a.m. with a sharp and burning left shoulder/shoulder blade pain, which then progressed to involve the left chest. Patient describes the pain as sharp, warm, constant in nature, radiating to the left chest, 10/10 in intensity at the time of onset, worsened with inspiration and movement, without any relieving factors and associated with shortness of breaths, dyspnea, and dizziness, which is what prompted this visit to the hospital. Patient notes he had similar symptoms in September 2023 when he was diagnosed with a pulmonary embolism and underwent thrombectomy x2. On review of systems patient is complaining of anxiety, negative for everything else at the time of my assessment. Lower extremity Doppler showed bilateral DVTs, CT angiography showed Emboli extending from the bilateral pulmonary arteries into the segmental branches. EKG shows some nonspecific repolarization abnormality. Previous hospitalization: [place] 1-05/24 year back for thrombectomy for PE PMHx: Patent foramen ovale, homozygous for prothrombin gene mutation PSHx: Thrombectomy x2, hernia repair surgery Family history: Both parents are carrier for prothrombin gene mutation Social history: Smokes nicotine, uses marijuana and cocaine (last used-last week). Denies other drug use, alcohol use. Home medication: None; patient ran out of insurance and did not continue Eliquis prescribed in [place] Allergic history: No known allergy Primary care doctor: Dr. Adria cadet 03/28/2025: Complains of 8 on 10 chest pain on deep inspiration. 03/29/2025: Underwent thrombectomy and IVC filter placement. Started on warfarin for cost issues, considering patient not having insurance was a factor in non-compliance to Eliquis in the past. 03/31/2025: Patient was seen at bedside today. No new complaints. Objective vital signs Vital Sign Date Time Temp Pulse Resp B/P (MAP) Pulse Ox O2 Delivery O2 Flow Rate FiO2 11/9/25 12:48 97.9 69 19 103/64 (77) 98 97.9 03/31/25 08:00 Room Air* 0 21 Total Intake and Output 03/30/25 03/30/25 03/31/25 15:00 23:00 07:00 Intake Total 720 ml 1480 ml Output Total 1300 ml Balance -580 ml 1480 ml medications Current Medications Medications Dose Ordered Sig/Emigdio Route Start Time Stop Time Status Last Admin Dose Admin Acetaminophen 325 mg Q4HP PRN PO 03/27/25 16:30 Acetaminophen/ Hydrocodone Bitart 1 tab Q4HP PRN PO 03/27/25 16:30 03/30/25 19:42 1 TAB Morphine Sulfate 2 mg Q4HPRN PRN IV 03/27/25 16:30 03/28/25 10:32 2 MG Warfarin Sodium RX PROTOCOL target ... PER PHARMACY PO 03/27/25 18:00 Cancel Pantoprazole Sodium 40 mg DAILY@0600 PO 03/28/25 06:00 03/31/25 06:31 40 MG Warfarin Sodium RX PROTOCOL PER PHARMACY PO 03/29/25 15:45 Heparin Sodium/ Dextrose 250 ml @ 18 mls/hr [id number] IV 03/31/25 06:30 03/31/25 06:35 18 MLS/HR Examination General: Patient alert and oriented in person, place and time. Patient following commands. HEENT: Normocephalic, atraumatic, moist mucous membranes Respiratory/pulmonary: Clear breath sounds bilaterally without wheeze, crackles or rhonchi Cardiovascular: Normal heart sounds S1 and S2 with no associated murmurs Abdomen: Abdomen nondistended, there is no pain to palpation in any of the abdominal quadrants, no palpable masses. Extremities: Vascular occlusion device and inguinal area. There is no peripheral edema present at the lower extremities. Peripheral Pulses: 3+ Radial (R). 3+ Radial (L). 3+ Dorsalis pedis (R). 3+ Dorsalis pedis(L) Skin: No rashes or pruritus, there is no sacral edema present at this time. Neurological: Intact cranial nerves with no focal neurologic deficits laboratory and microbiology Laboratory Tests 03/31/25 03:58 Test 03/31/25 03:58 Range/Units Serum Glucose 88 74-106 mg/dL Microbiology Date/Time Source Procedure Growth Status 03/27/25 18:09 Blood Blood Culture - Preliminary NO GROWTH AFTER 72 HOURS OF INCUBATION. Resulted Problem List/Assessment/Plan Problem List/Assessment/Plan Pulmonary embolism, rule out cor pulmonale, 2nd episode S/p thrombectomy S/p IVC infrarenal filter placement Bilateral lower extremity DVT History of recurrent PE and DVTs S/P Thrombectomy Homozygous for prothrombin gene mutation History of patent foramen ovale, unrepaired CXR shows no acute cardiopulmonary disease Lower extremity doppler shows bilateral DVT in popliteal veins CT angiography: Emboli extending from the bilateral pulmonary arteries into the segmental branches. Heparin bolus 4000 units, followed by heparin drip per pharmacy Serial troponins, lactic acid, echocardiogram Patient will benefit from genetic counseling if he wishes to participate Interventional radiology on board Status post IVC infrarenal filter placement and thrombectomy (03/29/25) Continue warfarin per pharmacy, loading dose given. INR today 1.08 Monitor INR closely Medication noncompliance, secondary to insurance issues Alcohol use disorder Nicotine-dependence Marijuana dependence Polysubstance abuse Counseled patient extensively on the importance of adhering to blood thinners, provided options for alternative blood thinners as well as warfarin, patient demonstrated understanding, we will revisit discussion closer to the time of discharge. UDS positive for cocaine, cannabis DIET: Regular DVT PROPHYLAXIS: Heparin GI PROPHYLAXIS: Protonix CODE STATUS: Goals of care discussed with patient at bedside for more than 18 minutes. Full code DISPOSITION: Telemetry This medical document was created using an electronic medical record system with [employer] direct computerized dictation system. Although this document has been carefully reviewed, there may still be some phonetic and typographical errors. These areas are purely typographical due to imperfections of the software programs, and do not reflect any compromise in the patient's medical care. Patient's status and plan discussed with the patient. Case discussed with Dr. Guillen Plan discussed with: Patient, Other (nurses) Date of Service: Mar 31, 2025 Billing Provider: ADRI GUILLEN MD Common Visit Codes: [id number] INP/OBS CARE(HIGH) SUSHILA WAYNE RESIDENT Mar 31, 2025 13:07 ADRI GUILLEN MD Mar 31, 2025 15:41
[2025-03-31 14:03] LABS: INR 1.19 (0.9-1.15); Partial Thromboplastin Time 58.1 SEC (24.5-34.5); Prothrombin Time 12.4 sec (9.3-11.8)
[2025-03-31] MEDS: WARFARIN SODIUM 2.5 MG TAB PO ONE (17:30)
[2025-03-31 19:33] LABS: INR 1.19 (0.9-1.15); Partial Thromboplastin Time 46.1 SEC (24.5-34.5); Prothrombin Time 12.4 sec (9.3-11.8)
[2025-04-01] VITALS (8 sets, daily range): BP systolic 95–119; BP diastolic 57–84; PULSE 67–102; RESP 16–18; TEMP 97.9–98.6; O2SAT 97–100
[2025-04-01 02:01] LABS: Hematocrit 46.8 % (41.0-53.0); Hemoglobin 16.0 g/dL (13.5-17.5); Mean Corpuscular Hemoglobin 30.8 pg (28.0-32.0); Mean Corpuscular Volume 90.4 fL (80.0-100.0); Nucleated Red Blood Cells % 0.1 %
[2025-04-01 02:27] LABS: INR 1.34 (0.9-1.15); Prothrombin Time 13.8 sec (9.3-11.8)
[2025-04-01 02:57] LABS: Partial Thromboplastin Time 115.0 SEC (24.5-34.5)
[2025-04-01] MEDS: HEPARIN DRIP/D5W 100UNITS/ML 250 ML IV SCH ×2 (04:22→20:09)
--- NOTE | 2025-04-01 07:08 | DVHPNRES ---
Progress Note Date Seen: Apr 01, 2025 Resident Creating Document: DEWAYNE ALEXANDER RESIDENT Medical Necessity Reason Pt with a Central, PICC or Fol: No Subjective Review of Systems Patient seen and examined at bedside Denies any new complaints overnight Continues to have shortness of breath on exertion only Currently on day 4 of warfarin Objective vital signs Vital Sign Date Time Temp Pulse Resp B/P (MAP) Pulse Ox O2 Delivery O2 Flow Rate FiO2 04/01/25 04:44 97.9 78 18 114/71 (85) 98 97.9 03/31/25 20:00 Room Air* 0 21 Total Intake and Output 03/31/25 03/31/25 04/01/25 15:00 23:00 07:00 Intake Total 1040 ml 600 ml Output Total 980 ml Balance 60 ml 600 ml medications Current Medications Medications Dose Ordered Sig/Emigdio Route Start Time Stop Time Status Last Admin Dose Admin Acetaminophen 325 mg Q4HP PRN PO 03/27/25 16:30 Acetaminophen/ Hydrocodone Bitart 1 tab Q4HP PRN PO 03/27/25 16:30 03/31/25 20:04 1 TAB Morphine Sulfate 2 mg Q4HPRN PRN IV 03/27/25 16:30 03/28/25 10:32 2 MG Warfarin Sodium RX PROTOCOL target ... PER PHARMACY PO 03/27/25 18:00 Cancel Pantoprazole Sodium 40 mg DAILY@0600 PO 03/28/25 06:00 04/01/25 05:55 40 MG Warfarin Sodium RX PROTOCOL PER PHARMACY PO 03/29/25 15:45 Heparin Sodium/ Dextrose 250 ml @ 17 mls/hr [id number] IV 04/01/25 04:30 04/01/25 04:22 17 MLS/HR Examination General: Patient alert and oriented in person, place and time. Patient following commands. HEENT: Normocephalic, atraumatic, moist mucous membranes Respiratory/pulmonary: Clear breath sounds bilaterally without wheeze, crackles or rhonchi Cardiovascular: Normal heart sounds S1 and S2 with no associated murmurs Abdomen: Abdomen nondistended, there is no pain to palpation in any of the abdominal quadrants, no palpable masses. Extremities: Vascular occlusion device and inguinal area. There is no peripheral edema present at the lower extremities. Peripheral Pulses: 3+ Radial (R). 3+ Radial (L). 3+ Dorsalis pedis (R). 3+ Dorsalis pedis(L) Skin: No rashes or pruritus, there is no sacral edema present at this time. Neurological: Intact cranial nerves with no focal neurologic deficits laboratory and microbiology Laboratory Tests 04/01/25 01:48 03/31/25 03:58 Test 03/31/25 03:58 Range/Units Serum Glucose 88 74-106 mg/dL Microbiology Date/Time Source Procedure Growth Status 03/27/25 18:09 Blood Blood Culture - Preliminary NO GROWTH AFTER 72 HOURS OF INCUBATION. Resulted Labs and/or images reviewed: Labs reviewed by me, Image(s) reviewed by me Problem List/Assessment/Plan Problem List/Assessment/Plan Recurrent Pulmonary embolism, ruled out cor pulmonale, 2nd episode S/p thrombectomy S/p IVC infrarenal filter placement Bilateral lower extremity DVT History of recurrent PE and DVTs S/P Thrombectomy Homozygous for prothrombin gene mutation History of patent foramen ovale, unrepaired CXR shows no acute cardiopulmonary disease Lower extremity doppler shows bilateral DVT in popliteal veins CT angiography: Emboli extending from the bilateral pulmonary arteries into the segmental branches. Heparin bolus 4000 units, followed by heparin drip per pharmacy Serial troponins, lactic acid, echocardiogram Patient will benefit from genetic counseling if he wishes to participate Interventional radiology on board Status post IVC infrarenal filter placement and thrombectomy (03/29/25) Continue warfarin per pharmacy, loading dose given. INR today 1.08 Monitor INR closely Medication noncompliance, secondary to insurance issues Alcohol use disorder Nicotine-dependence Marijuana dependence Polysubstance abuse Counseled patient extensively on the importance of adhering to blood thinners, provided options for alternative blood thinners as well as warfarin, patient demonstrated understanding, we will revisit discussion closer to the time of discharge. UDS positive for cocaine, cannabis DIET: Regular DVT PROPHYLAXIS: Heparin GI PROPHYLAXIS: Protonix CODE STATUS: Goals of care discussed with patient at bedside for more than 18 minutes. Full code DISPOSITION: Telemetry This medical document was created using an electronic medical record system with M*M flurenSqrrl direct computerized dictation system. Although this document has been carefully reviewed, there may still be some phonetic and typographical errors. These areas are purely typographical due to imperfections of the software programs, and do not reflect any compromise in the patient's medical care. Patient's status and plan discussed with the patient. Case discussed with Dr. Funes Plan discussed with: Patient, Other (RN) Date of Service: Apr 01, 2025 Billing Provider: JUSTIN FUNES MD Common Visit Codes: [id number] INP/OBS CARE(HIGH) DEWAYNE ALEXANDER RESIDENT Apr 01, 2025 07:08 JUSTIN FUNES MD Apr 01, 2025 18:06
--- NOTE | 2025-04-01 10:45 | DVHSR ---
APPROVED REPORT EXAM: Two-dimensional and M-mode echocardiogram with Doppler, color Doppler and Bubble Study. Blood Pressure: 123/82 mmHg INDICATION PE RISK FACTORS Height: 5'10", Weight: 191 DIMENSIONS LVDd 4.8 (3.8-5.7cm) LA (2D) 3.3 (1.9-4.0cm) Aortic Root 3.0 (2.0-3.7cm) LVDs 3.2 (2.5-4.0cm) LA (MM) (1.9-4.0cm) Aortic Cusp Exc 2.3 (1.5-2.0cm) EF (%) 63.0 (55-70%) Rt. Atrium 4.9 (1.9-4.0cm) Asc. Aorta 3.0 cm IVSd 0.7 (0.7-1.1cm) RV (D) 3.9 (1.8-2.4cm) PWd 1.0 (0.7-1.1cm) Mitral Valve Mitral Mitral Stenosis E wave 0.63m/s MV Mean GR. mmHg A wave 0.55m/s MV Peak GR. mmHg E/A ratio 1.1 2D MVA cm2 DECEL Time 160ms PRESS 1/2 Time ms Aortic Valve Aortic Valve Aortic Stenosis V1 0.89m/s AO Mean GR. 3mmHg V2 1.04m/s AO Peak GR. 4mmHg LVOT Diameter 2.3 (1.8-2.4cm) Doppler OSWALDO 3.55cm2 Pulmonic Valve V2 1.05m/s Tricuspid Valve TR Velocity 2.08m/s RVSP 20mmHg Other Information Quality : Technically Limited Rhythm : Technically limited study due to patient position. Conclusion lvef 60% normal rv function normal atria no severe valve abnormalities noted normal pericardium
[2025-04-01 10:53] LABS: INR 1.33 (0.9-1.15); Partial Thromboplastin Time 62.6 SEC (24.5-34.5); Prothrombin Time 13.7 sec (9.3-11.8)
[2025-04-01] MEDS: WARFARIN SODIUM 5 MG TAB PO ONE (17:22)
[2025-04-01 18:18] LABS: INR 1.45 (0.9-1.15); Prothrombin Time 14.8 sec (9.3-11.8)
[2025-04-01 18:44] LABS: Partial Thromboplastin Time 98.9 SEC (24.5-34.5)
--- NOTE | 2025-04-01 18:57 | CONS ---
Pharmacy Clinical Information: HEPARIN HELD FOR 1 HOUR (STOP @1850, RESUME @1999) ON 04/01 SINCE APTT = 98.9 @1718 04/01. HEPARIN WILL RESUME @1999 AND NEW HEPARIN RATE RUN @14 ML/HR OR 1400 UNITS/HR PER RX PROTOCOL. NEXT APTT ZEB SIX HOURS FROM STARTING NEW HEPARIN RATE 14 ML/HR EMILY BUSTILLO AWARE AND REPEATED BACK NEW RATE 14 ML/HR TO START @1999 DUNCAN TOSCANO PHARMACIST Apr 01, 2025 18:57
[2025-04-02 01:00] VITALS: BP 118/83; PULSE 100; RESP 17; TEMP 98.3; O2SAT 97
[2025-04-02 05:00] VITALS: BP 108/77; PULSE 79; RESP 16; TEMP 98; O2SAT 96
[2025-04-02 05:19] LABS: Hematocrit 47.0 % (41.0-53.0); Hemoglobin 16.3 g/dL (13.5-17.5); Mean Corpuscular Hemoglobin 31.1 pg (28.0-32.0); Mean Corpuscular Volume 89.9 fL (80.0-100.0); Nucleated Red Blood Cells % 0.1 %
[2025-04-02 05:32] LABS: Anion Gap 10 (5-15); Carbon Dioxide 27 mmol/L (20-31); Chloride 102 mmol/L (98-107); Potassium 3.9 mmol/L (3.5-5.1); Sodium 139 mmol/L (136-145)
[2025-04-02 05:34] LABS: Calcium 9.7 mg/dL (8.7-10.4)
[2025-04-02 05:38] LABS: Glucose 88 mg/dL (74-106)
[2025-04-02 05:39] LABS: BUN/Creatinine Ratio 8.0 (10.0-20.0)
[2025-04-02 05:42] LABS: Blood Urea Nitrogen 7 mg/dL (9-23)
[2025-04-02 05:52] LABS: INR 1.98 (0.9-1.15); Prothrombin Time 19.6 sec (9.3-11.8)
[2025-04-02 06:04] LABS: Partial Thromboplastin Time 78.7 SEC (24.5-34.5)
[2025-04-02] MEDS: HEPARIN DRIP/D5W 100UNITS/ML 250 ML IV SCH ×2 (06:16→14:56)
[2025-04-02 08:00] VITALS: PULSE 68
[2025-04-02 12:39] LABS: INR 2.18 (0.9-1.15); Partial Thromboplastin Time 49.3 SEC (24.5-34.5); Prothrombin Time 21.4 sec (9.3-11.8)
--- NOTE | 2025-04-02 12:56 | DVHDSRES ---
Discharge Summary Date of Admission Resident Creating Document: DEWAYNE ALEXANDER RESIDENT Mar 27, 2025 at 16:22 Date of Discharge: Apr 02, 2025 Labs/Diagnostic Data: Laboratory Results Test 04/02/25 12:05 04/02/25 04:45 03/30/25 01:45 03/27/25 18:00 Prothrombin Time 21.4 sec (9.3-11.8) Prothrombin Time INR 2.18 (0.9-1.15) Activated Partial Thromboplast Time 49.3 SEC (24.5-34.5) White Blood Count 4.3 10^3/uL (4.4-10.8) Red Blood Count 5.23 10^6/uL (4.5-5.90) Hemoglobin 16.3 g/dL (13.5-17.5) Hematocrit 47.0 % (41.0-53.0) Mean Corpuscular Volume 89.9 fL (80.0-100.0) Mean Corpuscular Hemoglobin 31.1 pg (28.0-32.0) Mean Corpuscular Hemoglobin Concent 34.6 g/dL (32.0-36.0) Red Cell Distribution Width 12.5 % (11.8-14.3) Platelet Count 186 10^3/uL (140-450) Mean Platelet Volume 9.3 fL (6.9-10.8) Neutrophils (%) (Auto) 62.9 % (37.0-80.0) Lymphocytes (%) (Auto) 26.4 % (10.0-50.0) Monocytes (%) (Auto) 9.1 % (0.0-12.0) Eosinophils (%) (Auto) 1.0 % (0.0-7.0) Basophils (%) (Auto) 0.6 % (0.0-2.0) Neutrophils # (Auto) 2.7 10 ^3/uL (1.6-8.6) Lymphocytes # (Auto) 1.1 10 ^3/uL (0.4-5.4) Monocytes # (Auto) 0.4 10 ^3/uL (0-1.3) Eosinophils # (Auto) 0 10 ^3/uL (0-0.8) Basophils # (Auto) 0 10 ^3/uL (0-0.2) Nucleated Red Blood Cells 0.1 % Sodium Level 139 mmol/L (136-145) Potassium Level 3.9 mmol/L (3.5-5.1) Chloride Level 102 mmol/L (98-107) Carbon Dioxide Level 27 mmol/L (20-31) Anion Gap 10 (5-15) Blood Urea Nitrogen 7 mg/dL (9-23) Creatinine 0.88 mg/dL (0.700-1.30) Glomerular Filtration Rate Calc 120 mL/min (>90) BUN/Creatinine Ratio 8.0 (10.0-20.0) Serum Glucose 88 mg/dL (74-106) Calcium Level 9.7 mg/dL (8.7-10.4) Total Bilirubin 0.4 mg/dL (0.2-1.0) Aspartate Amino Transferase (AST) 27 U/L (13-40) Alanine Aminotransferase (ALT) 21 U/L (7-40) Alkaline Phosphatase 99 U/L (46-116) Total Protein 6.4 g/dL (5.7-8.2) Albumin 3.6 g/dL (3.2-4.8) Influenza Type A Antigen Negative (Negative) Influenza Type B Antigen Negative (Negative) SARS-CoV-2 Antigen (Rapid) Negative (NEGATIVE) Test 03/27/25 17:56 03/27/25 17:54 03/27/25 17:08 03/27/25 12:50 Hemoglobin A1c 4.5 % A1C (<5.7) Urine Color Yellow (Yellow) Urine Clarity Clear (Clear) Urine pH 7.0 (5.0-9.0) Urine Specific Pattison 1.050 (1.001-1.035) Urine Protein Negative (Negative) Urine Ketones Negative (Negative) Urine Blood Negative /uL (Negative) Urine Nitrite Negative (Negative) Urine Bilirubin Negative (Negative) Urine Urobilinogen Normal mg/dL (Negative) Urine Leukocyte Esterase Negative /uL (Negative) Urine RBC 1 /hpf (0 - 3) Urine Microscopic WBC < 1 /HPF (0-3) Urine Squamous Epithelial Cells Few /hpf (<5) Urine Bacteria None seen /hpf (None Seen) Urine Mucus Few (None Seen) Urine Glucose Normal mg/dL (Normal) Urine Opiates Screen Pos (NEGATIVE) Urine Fentanyl Screen Neg (NEGATIVE) Urine Barbiturates Screen Neg (NEGATIVE) Urine Phencyclidine Screen Neg (NEGATIVE) Urine Amphetamines Screen Neg (NEGATIVE) Urine Benzodiazepines Screen Neg (NEGATIVE) Urine Cocaine Screen Pos (NEGATIVE) Urine Cannabinoids Screen Pos (NEGATIVE) Lactic Acid Level 0.8 mmol/L (0.4-2.0) Direct Bilirubin 0.3 mg/dL (<0.3) Troponin I High Sensitivity < 3 ng/L (</=54) B-Type Natriuretic Peptide 47.55 pg/mL (0-100) D-Dimer, Quantitative 5.14 mg/L FEU (0.0-0.49) Other Laboratory Tests 04/02/25 04:45 Brief Hx & Hospital Course: Brief history on admission: This is a 29-year-old male with past medical history of patent foramen ovale, homozygous for prothrombin gene mutation, recurrent DVT, PE, presented with chief complain of chest pain and dyspnea. According to the patient, he woke up on the morning of 02/24/25, around 7:30 a.m. with a sharp and burning left shoulder/shoulder blade pain, which then progressed to involve the left chest. Patient describes the pain as sharp, warm, constant in nature, radiating to the left chest, 10/10 in intensity at the time of onset, worsened with inspiration and movement, without any relieving factors and associated with shortness of breaths, dyspnea, and dizziness, which is what prompted this visit to the hospital. Patient notes he had similar symptoms in September 2023 when he was diagnosed with a pulmonary embolism and underwent thrombectomy x2. Hospital course: Initial CXR shows no acute cardiopulmonary disease. CT angiography revealed Emboli extending from the bilateral pulmonary arteries into the segmental branches. Lower extremity doppler shows bilateral DVT in popliteal veins. Heparin bolus 4000 units, followed by heparin drip per pharmacy started. Intervention radiology was consulted, patient underwent IVC infrarenal filter placement and pulmonary artery thrombectomy (03/29/25). After the procedure, patient was started on warfarin for cost issues, considering patient not having insurance was a factor in non-compliance to Eliquis in the past. He was counseled to follow with Coumadin clinic and complications were explained on multiple occasions. He was started on warfarin on 03/29/2025, today his INR is within therapeutic range. He is stable for discharge and will follow with Coumadin clinic, interventional radiology in outpatient clinic. Patient was educated on need, monitoring, side effects and other recommendations relating to warfarin. Conditions managed during stay: Recurrent Pulmonary embolism, ruled out cor pulmonale, 2nd episode S/p thrombectomy S/p IVC infrarenal filter placement Bilateral lower extremity DVT History of recurrent PE and DVTs S/P Thrombectomy Homozygous for prothrombin gene mutation History of patent foramen ovale, unrepaired Medication noncompliance, secondary to insurance issues Alcohol use disorder Nicotine-dependence Marijuana dependence Polysubstance abuse Plan: Continue warfarin p.o. daily You can visits state Department or Coumadin clinic to follow with INR. Follow up in discharge clinic. Follow up with PCP in 1 week Operations or Procedures XY INFERIOR VENA CAVA FILTER, XY PERCU.VENOUS THROMBECTOMY, HISTORY: INFERIOR VENA CAVA FILTER PROCEDURE: Informed consent was obtained. The patient was placed on the fluoroscopic table in supine position. The right groin was prepped with chlorhexidine which was allowed to dry and draped in the usual sterile fashion. Time out was performed. Following administration of 1% local lidocaine, the common femoral vein was accessed with a micropuncture set under ultrasound guidance, and an image documenting patency sent to PACS. A 6 Fr sheath was placed into the iliac vein and a venocavogram was obtained. A wire was placed into the left brachiocephalic vein. A 16 Fr Inari sheath was placed into the right iliac vein. An Inari Clot Treiver thrombectomy device was used to mechanically extract the IVC thrombus. A catheter was placed into the left iliac vein and a venocavogram obtained. A completion venocavogram was obtained. The catheter was exchanged for a 9.6 Telugu introducer sheath, and a Bard G2 [place] IVC filter was deployed in an infrarenal location. The introducer sheath was removed and the venotomy closed with manual compression. Post-deployment image was obtained. No immediate complication was identified. DAP 1241 mGy FLUOROSCOPY TIME: 5.5 minutes. CONTRAST USED: 50 mL. SEDATION: Dr. Jackie Dos Santos was personally responsible for the administration of moderate sedation during the procedure performed, including the use of an independent trained observer who had no other duties during the procedure. The drugs utilized were IV fentanyl and versed (see nursing log for details). The total time of supervision by the attending physician was approximately 75 minutes. FINDINGS: There is a single IVC visualized with intraluminal filling defect from L2-L5 which was removed with mechanical thrombectomy. No renal venous anomaly is noted. Post-procedure image demonstrates good positioning of the IVC filter in an infrarenal position. IMPRESSION: IVC visualized with intraluminal thrombus from L2-L5 which was removed with mechanical thrombectomy. Post-procedure image demonstrates good positioning of the IVC filter in an infrarenal position. PLAN: Resume anticoagulation. Remove flowstasis after 24 hours. Recommend ambulation. Discussed at length with patient mother and patient to get the filter removed DALE. XY INFERIOR VENA CAVA FILTER, XY PERCU.VENOUS THROMBECTOMY, HISTORY: INFERIOR VENA CAVA FILTER PROCEDURE: Informed consent was obtained. The patient was placed on the fluoroscopic table in supine position. The right groin was prepped with chlorhexidine which was allowed to dry and draped in the usual sterile fashion. Time out was performed. Following administration of 1% local lidocaine, the common femoral vein was accessed with a micropuncture set under ultrasound guidance, and an image documenting patency sent to PACS. A 6 Fr sheath was placed into the iliac vein and a venocavogram was obtained. A wire was placed into the left brachiocephalic vein. A 16 Fr Inari sheath was placed into the right iliac vein. An Inari Clot Treiver thrombectomy device was used to mechanically extract the IVC thrombus. A catheter was placed into the left iliac vein and a venocavogram obtained. A completion venocavogram was obtained. The catheter was exchanged for a 9.6 Telugu introducer sheath, and a Bard G2 Faby IVC filter was deployed in an infrarenal location. The introducer sheath was removed and the venotomy closed with manual compression. Post-deployment image was obtained. No immediate complication was identified. DAP 1241 mGy FLUOROSCOPY TIME: 5.5 minutes. CONTRAST USED: 50 mL. SEDATION: Dr. Jackie Dos Santos was personally responsible for the administration of moderate sedation during the procedure performed, including the use of an independent trained observer who had no other duties during the procedure. The drugs utilized were IV fentanyl and versed (see nursing log for details). The total time of supervision by the attending physician was approximately 75 minutes. FINDINGS: There is a single IVC visualized with intraluminal filling defect from L2-L5 which was removed with mechanical thrombectomy. No renal venous anomaly is noted. Post-procedure image demonstrates good positioning of the IVC filter in an infrarenal position. IMPRESSION: IVC visualized with intraluminal thrombus from L2-L5 which was removed with mechanical thrombectomy. Post-procedure image demonstrates good positioning of the IVC filter in an infrarenal position. PLAN: Resume anticoagulation. Remove flowstasis after 24 hours. Recommend ambulation. Discussed at length with patient mother and patient to get the filter removed DALE. Bilateral lower extremity venous duplex Clinical History: possible PE Comparison: US BILAT LOWER DVT on DOS: 07/31/24 Findings: Duplex Doppler evaluation of the deep venous systems of both lower extremities from the common femoral veins to the popliteal veins including color Doppler and spectral/pulsed waveform analysis was performed. RIGHT SIDE: The common femoral vein demonstrates appropriate compressibility and waveform variability. There is compressibility/patency of the great saphenous vein at the proximal thigh. The femoral vein demonstrates appropriate compressibility and waveform variability. The deep femoral vein demonstrates appropriate compressibility and waveform variability. Thrombus within the popliteal vein. There is normal compressibility at the tibioperoneal trunk. LEFT SIDE: The common femoral vein demonstrates appropriate compressibility and waveform variability. There is compressibility/patency of the great saphenous vein at the proximal thigh. The femoral vein demonstrates appropriate compressibility and waveform variability. The deep femoral vein demonstrates appropriate compressibility and waveform variability. Thrombus within the popliteal vein. There is normal compressibility at the tibioperoneal trunk. IMPRESSION: Bilateral DVTs. END IMPRESSION: If clinical concern/symptoms persist or worsen, short-interval follow-up study is suggested. Critical Result: DVT Findings discussed with CARMINA PIERRE at 03/27/2025 02:08 PM, and acknowledged receipt and understanding of the findings. INDICATION: pain TECHNIQUE: Serial axial images from the thoracic inlet to the domes of the diaphragm were obtained after administration of 100 mL of Omnipaque 300 intravenously using the CTA PE protocol. Coronal and sagittal images were reconstructed. Multiplanar 3-D Maximum Intensity Projection images (MIP) reconstructions were created by the technologist in the coronal and sagittal planes as part of the CT angiography protocol. Dose lowering techniques have been used including automated exposure control and adjustment of mA and/or kv according to patient size. Comparison: CT CT CHEST/AB/PL W CON- IV ONLY on DOS: 12/04/24, CT ANGIO HEAD/NECK on DOS: 12/04/24, CT CT ANGIO CHEST CONTRAST on DOS: 07/31/24 FINDINGS: Pulmonary vasculature: Filling defects compatible with pulmonary emboli in the bilateral distal mainstem pulmonary arteries with extension into the segmental branches. Lungs: Limited evaluation due to motion. No focal consolidation. Hilar, mediastinal and axillary lymph nodes: No enlarged lymph nodes Aorta: Normal in size. Heart: Normal. Pleura: No pleural effusion Osseous structures: Normal Visualized portion of the abdomen: Grossly unremarkable. DLP is 832.9 mGy-cm. CTDI vol is 34 mGy. IMPRESSION: 1. Emboli extending from the bilateral pulmonary arteries into the segmental branches. *Findings communicated to Dr. Pierre by Dr. Aguilar of Radiology at 03/27/2025 2:44 PM Procedure: XY CHEST PORTABLE History: pain and sob Comparison: CT CT CHEST/AB/PL W CON- IV ONLY on DOS: 12/04/24, Technique: Single view of the chest. Findings: The lung parenchyma is clear. No pleural effusion. Cardiac silhouette is enlarged. Impression: 1. No acute cardiopulmonary disease. APPROVED REPORT EXAM: Two-dimensional and M-mode echocardiogram with Doppler, color Doppler and Bubble Study. Blood Pressure: 123/82 mmHg INDICATION PE RISK FACTORS Height: 5'10", Weight: 191 DIMENSIONS LVDd 4.8 (3.8-5.7cm) LA (2D) 3.3 (1.9-4.0cm) Aortic Root 3.0 (2.0- 3.7cm) LVDs 3.2 (2.5-4.0cm) LA (MM) (1.9-4.0cm) Aortic Cusp Exc 2.3 (1.5- 2.0cm) EF (%) 63.0 (55-70%) Rt. Atrium 4.9 (1.9-4.0cm) Asc. Aorta 3.0 cm IVSd 0.7 (0.7-1.1cm) RV (D) 3.9 (1.8-2.4cm) PWd 1.0 (0.7-1.1cm) Mitral Valve Mitral Mitral Stenosis E wave 0.63m/s MV Mean GR. mmHg A wave 0.55m/s MV Peak GR. mmHg E/A ratio 1.1 2D MVA cm2 DECEL Time 160ms PRESS 1/2 Time ms Aortic Valve Aortic Valve Aortic Stenosis V1 0.89m/s AO Mean GR. 3mmHg V2 1.04m/s AO Peak GR. 4mmHg LVOT Diameter 2.3 (1.8-2.4cm) Doppler OSWALDO 3.55cm2 Pulmonic Valve V2 1.05m/s Tricuspid Valve TR Velocity 2.08m/s RVSP 20mmHg Other Information Quality : Technically Limited Rhythm : Technically limited study due to patient position. Conclusion lvef 60% normal rv function normal atria no severe valve abnormalities noted normal pericardium Condition at Discharge: Stable Final Diagnosis/Problems List Recurrent Pulmonary embolism, ruled out cor pulmonale, 2nd episode S/p thrombectomy S/p IVC infrarenal filter placement Bilateral lower extremity DVT History of recurrent PE and DVTs S/P Thrombectomy Homozygous for prothrombin gene mutation History of patent foramen ovale, unrepaired Medication noncompliance, secondary to insurance issues Alcohol use disorder Nicotine-dependence Marijuana dependence Polysubstance abuse Discharge Disposition: Home Discharge Instruct/Medications Diet: Regular Activity: No Restrictions, As Tolerated Activity comment: Avoid contact sports Follow Up/Referral: PCP in 1 week Coumadrin clinic Medications: As per EHR Scheduled Apixaban Base (Eliquis), 5 MG PO BID Apixaban Base (Eliquis), 5 MG PO BID Clindamycin Hcl (Clindamycin Hcl), 300 MG PO TID Scheduled PRN Hydrocodone-Acetaminophen (Hydrocodone Bitartrate/AC 10-325 mg), 1 TAB PO Q6HP PRN Discharge Statement: "Patient was advised to return to the ER or call 911 if any headaches, dizziness, shortness of breath, chest pain, abdominal pain, bleeding, fevers, or worsening of medical condition. Patient was counseled about treatment plan, medications, possible side effects, patientverbalized understanding. All questions were answered to the best of my ability. This discharge took greater then 30 minutes in planning, reviewing documentation, counseling the patient, and discussing with other team members." ASSESSMENT ASSESSMENT Assessment Recurrent Pulmonary embolism, ruled out cor pulmonale, 2nd episode S/p thrombectomy S/p IVC infrarenal filter placement Bilateral lower extremity DVT History of recurrent PE and DVTs S/P Thrombectomy Homozygous for prothrombin gene mutation History of patent foramen ovale, unrepaired Medication noncompliance, secondary to insurance issues Alcohol use disorder Nicotine-dependence Marijuana dependence Polysubstance abuse SUSHILA WAYNE RESIDENT Apr 02, 2025 12:56
[2025-04-02 13:17] VITALS: BP 121/82; PULSE 66; RESP 16; TEMP 98.4; O2SAT 98
[2025-04-02] MEDS ORDERED: WARF-66 PO (16:04)
--- NOTE | 2025-04-02 16:45 | DVHPNRES ---
Progress Note Date Seen: Apr 02, 2025 Resident Creating Document: SUSHILA WAYNE RESIDENT Medical Necessity Reason Pt with a Central, PICC or Fol: No Subjective Review of Systems Brief history on admission: This is a 29-year-old male with past medical history of patent foramen ovale, homozygous for prothrombin gene mutation, recurrent DVT, PE, presented with chief complain of chest pain and dyspnea. According to the patient, he woke up on the morning of 02/24/25, around 7:30 a.m. with a sharp and burning left shoulder/shoulder blade pain, which then progressed to involve the left chest. Patient describes the pain as sharp, warm, constant in nature, radiating to the left chest, 10/10 in intensity at the time of onset, worsened with inspiration and movement, without any relieving factors and associated with shortness of breaths, dyspnea, and dizziness, which is what prompted this visit to the hospital. Patient notes he had similar symptoms in September 2023 when he was diagnosed with a pulmonary embolism and underwent thrombectomy x2. On review of systems patient is complaining of anxiety, negative for everything else at the time of my assessment. Lower extremity Doppler showed bilateral DVTs, CT angiography showed Emboli extending from the bilateral pulmonary arteries into the segmental branches. EKG shows some nonspecific repolarization abnormality. Previous hospitalization: [place] 1-05/24 year back for thrombectomy for PE PMHx: Patent foramen ovale, homozygous for prothrombin gene mutation PSHx: Thrombectomy x2, hernia repair surgery Family history: Both parents are carrier for prothrombin gene mutation Social history: Smokes nicotine, uses marijuana and cocaine (last used-last week). Denies other drug use, alcohol use. Home medication: None; patient ran out of insurance and did not continue Eliquis prescribed in [place] Allergic history: No known allergy Primary care doctor: Dr. Adria cadet 03/28/2025: Complains of 8 on 10 chest pain on deep inspiration. 03/29/2025: Underwent thrombectomy and IVC filter placement. Started on warfarin for cost issues, considering patient not having insurance was a factor in non-compliance to Eliquis in the past. 03/31/2025: No new complaints. 04/02/25: Patient was seen at bedside today. Complain of SOB, chest pain on exertion. Continue to monitor INR closely. Objective vital signs Vital Sign Date Time Temp Pulse Resp B/P (MAP) Pulse Ox O2 Delivery O2 Flow Rate FiO2 04/02/25 13:17 98.4 66 16 121/82 (95) 98 98.4 04/02/25 08:00 Room Air* 0 21 Total Intake and Output 04/01/25 04/01/25 04/02/25 15:00 23:00 07:00 Intake Total 400 ml 575 ml Output Total 900 ml 700 ml Balance -500 ml -125 ml medications Current Medications Medications Dose Ordered Sig/Emigdio Route Start Time Stop Time Status Last Admin Dose Admin Acetaminophen 325 mg Q4HP PRN PO 03/27/25 16:30 Acetaminophen/ Hydrocodone Bitart 1 tab Q4HP PRN PO 03/27/25 16:30 03/31/25 20:04 1 TAB Morphine Sulfate 2 mg Q4HPRN PRN IV 03/27/25 16:30 03/28/25 10:32 2 MG Warfarin Sodium RX PROTOCOL target ... PER PHARMACY PO 03/27/25 18:00 Cancel Pantoprazole Sodium 40 mg DAILY@0600 PO 03/28/25 06:00 04/02/25 06:00 40 MG Warfarin Sodium RX PROTOCOL PER PHARMACY PO 03/29/25 15:45 Heparin Sodium/ Dextrose 250 ml @ 14 mls/hr [id number] IV 04/02/25 15:00 04/02/25 14:56 14 MLS/HR Examination General: Patient alert and oriented in person, place and time. Patient following commands. HEENT: Normocephalic, atraumatic, moist mucous membranes Respiratory/pulmonary: Clear breath sounds bilaterally without wheeze, crackles or rhonchi Cardiovascular: Normal heart sounds S1 and S2 with no associated murmurs Abdomen: Abdomen nondistended, there is no pain to palpation in any of the abdominal quadrants, no palpable masses. Extremities: There is no peripheral edema present at the lower extremities. Peripheral Pulses: 3+ Radial (R). 3+ Radial (L). 3+ Dorsalis pedis (R). 3+ Dorsalis pedis(L) Skin: No rashes or pruritus, there is no sacral edema present at this time. Neurological: Intact cranial nerves with no focal neurologic deficits laboratory and microbiology Laboratory Tests 04/02/25 04:45 Test 04/02/25 04:45 Range/Units Serum Glucose 88 74-106 mg/dL Microbiology Date/Time Source Procedure Growth Status 03/27/25 18:09 Blood Blood Culture - Final NO GROWTH AFTER 5 DAYS OF INCUBATION. Complete Problem List/Assessment/Plan Problem List/Assessment/Plan Pulmonary embolism, rule out cor pulmonale, 2nd episode S/p thrombectomy S/p IVC infrarenal filter placement Bilateral lower extremity DVT History of recurrent PE and DVTs S/P Thrombectomy Homozygous for prothrombin gene mutation History of patent foramen ovale, unrepaired CXR shows no acute cardiopulmonary disease Lower extremity doppler shows bilateral DVT in popliteal veins CT angiography: Emboli extending from the bilateral pulmonary arteries into the segmental branches. Heparin bolus 4000 units, followed by heparin drip per pharmacy Serial troponins, lactic acid, echocardiogram Patient will benefit from genetic counseling if he wishes to participate Interventional radiology on board Status post IVC infrarenal filter placement and thrombectomy (03/29/25) Continue warfarin per pharmacy, loading dose given. INR today in goal range Monitor INR closely Medication noncompliance, secondary to insurance issues Alcohol use disorder Nicotine-dependence Marijuana dependence Polysubstance abuse Counseled patient extensively on the importance of adhering to blood thinners, provided options for alternative blood thinners as well as warfarin, patient demonstrated understanding, we will revisit discussion closer to the time of discharge. UDS positive for cocaine, cannabis DIET: Regular DVT PROPHYLAXIS: On Warfarin GI PROPHYLAXIS: Protonix CODE STATUS: Goals of care discussed with patient at bedside for more than 18 minutes. Full code DISPOSITION: Telemetry This medical document was created using an electronic medical record system with [employer] direct computerized dictation system. Although this document has been carefully reviewed, there may still be some phonetic and typographical errors. These areas are purely typographical due to imperfections of the software programs, and do not reflect any compromise in the patient's medical care. Patient's status and plan discussed with the patient. Case discussed with Dr. Funes Plan discussed with: Patient, Other (nurses) My Orders My Orders Orders - SUSHILA WAYNE RESIDENT Procedure Category Date Status Time Incentive Spirometry ORDERS 04/02/25 Transmitted Q 1hr 10:44 Communication Order ORDERS 04/02/25 Transmitted 13:26 Date of Service: Apr 02, 2025 Billing Provider: JUSTIN FUNES MD Common Visit Codes: [id number] INP/OBS CARE(HIGH) SUSHILA WAYNE RESIDENT Apr 02, 2025 16:45 JUSTIN FUNES MD Apr 03, 2025 06:38
[2025-04-02 17:19] VITALS: BP 105/66; PULSE 87; RESP 18; TEMP 98.9; O2SAT 96
[2025-04-02 21:00] VITALS: BP 103/67; PULSE 99; RESP 17; TEMP 98.2; O2SAT 94
[2025-04-02 21:57] LABS: INR 1.99 (0.9-1.15); Partial Thromboplastin Time 59.5 SEC (24.5-34.5); Prothrombin Time 19.7 sec (9.3-11.8)
[2025-04-03] VITALS (7 sets, daily range): BP systolic 93–105; BP diastolic 54–68; PULSE 62–83; RESP 16–19; TEMP 97.4–98.5; O2SAT 96–98
[2025-04-03 03:28] LABS: Hematocrit 44.8 % (41.0-53.0); Hemoglobin 15.4 g/dL (13.5-17.5); Mean Corpuscular Hemoglobin 31.1 pg (28.0-32.0); Mean Corpuscular Volume 90.6 fL (80.0-100.0); Nucleated Red Blood Cells % 0.3 %
[2025-04-03 03:42] LABS: INR 1.8 (0.9-1.15); Partial Thromboplastin Time 28.2 SEC (24.5-34.5); Prothrombin Time 18.0 sec (9.3-11.8)
[2025-04-03] MEDS: HEPARIN DRIP/D5W 100UNITS/ML 250 ML IV SCH ×2 (04:04→13:09)
[2025-04-03] MEDS: HEPARIN SODIUM (PORCINE) 5000 UNITS/ML 1ML VIAL IV ONE (04:04)
[2025-04-03] MEDS: WARFARIN SODIUM 2.5 MG TAB PO ONE (09:10)
[2025-04-03 10:57] LABS: INR 1.72 (0.9-1.15); Prothrombin Time 17.3 sec (9.3-11.8)
[2025-04-03 10:59] LABS: Partial Thromboplastin Time 106.5 SEC (24.5-34.5)
--- NOTE | 2025-04-03 11:27 | CONS ---
Pharmacy Clinical Information: HEPARIN DRIP, DVT PROTOCOL @10:02 APTT 106.5 - NO BOLUS / HOLD HEPARIN DRIP FOR 1 HOUR, THEN RESTART HEPARIN DRIP @12:30 AT RATE 1400 UNITS/HR NEXT APTT DRAW SCHEDULED @1830 PER RX PROTOCOL CONFIRMED AND READ BACK WITH BALDEV MAS PHARMACIST Apr 03, 2025 11:27
[2025-04-03 13:36] LABS: INR 1.62 (0.9-1.15); Partial Thromboplastin Time 42.5 SEC (24.5-34.5); Prothrombin Time 16.4 sec (9.3-11.8)
--- NOTE | 2025-04-03 15:39 | DVHPNRES ---
Progress Note Date Seen: Apr 03, 2025 Resident Creating Document: SUSHILA WAYNE RESIDENT Medical Necessity Reason Pt with a Central, PICC or Fol: No Subjective Review of Systems Brief history on admission: This is a 29-year-old male with past medical history of patent foramen ovale, homozygous for prothrombin gene mutation, recurrent DVT, PE, presented with chief complain of chest pain and dyspnea. According to the patient, he woke up on the morning of 02/24/25, around 7:30 a.m. with a sharp and burning left shoulder/shoulder blade pain, which then progressed to involve the left chest. Patient describes the pain as sharp, warm, constant in nature, radiating to the left chest, 10/10 in intensity at the time of onset, worsened with inspiration and movement, without any relieving factors and associated with shortness of breaths, dyspnea, and dizziness, which is what prompted this visit to the hospital. Patient notes he had similar symptoms in September 2023 when he was diagnosed with a pulmonary embolism and underwent thrombectomy x2. On review of systems patient is complaining of anxiety, negative for everything else at the time of my assessment. Lower extremity Doppler showed bilateral DVTs, CT angiography showed Emboli extending from the bilateral pulmonary arteries into the segmental branches. EKG shows some nonspecific repolarization abnormality. Previous hospitalization: [place] 1-05/24 year back for thrombectomy for PE PMHx: Patent foramen ovale, homozygous for prothrombin gene mutation PSHx: Thrombectomy x2, hernia repair surgery Family history: Both parents are carrier for prothrombin gene mutation Social history: Smokes nicotine, uses marijuana and cocaine (last used-last week). Denies other drug use, alcohol use. Home medication: None; patient ran out of insurance and did not continue Eliquis prescribed in [place] Allergic history: No known allergy Primary care doctor: Dr. Adria cadet 03/28/2025: Complains of 8 on 10 chest pain on deep inspiration. 03/29/2025: Underwent thrombectomy and IVC filter placement. Started on warfarin for cost issues, considering patient not having insurance was a factor in non-compliance to Eliquis in the past. 03/31/2025: No new complaints. 04/02/25: Complain of SOB, chest pain on exertion. Continue to monitor INR closely. 04/03/2025: Patient was seen at bedside today. Continues to complain of shortness of breaths and chest pain on exertion, improving from baseline. His INR is subtherapeutic, trending down. Continue heparin bridge and monitor INR. Objective vital signs Vital Sign Date Time Temp Pulse Resp B/P (MAP) Pulse Ox O2 Delivery O2 Flow Rate FiO2 04/03/25 13:00 97.8 62 17 96/64 (75) 98 97.8 04/03/25 08:00 Room Air* 0 21 Total Intake and Output 04/02/25 04/02/25 04/03/25 15:00 23:00 07:00 Intake Total 800 ml 1200 ml Output Total 1 ml Balance 799 ml 1200 ml medications Current Medications Medications Dose Ordered Sig/Emigdio Route Start Time Stop Time Status Last Admin Dose Admin Acetaminophen 325 mg Q4HP PRN PO 03/27/25 16:30 Acetaminophen/ Hydrocodone Bitart 1 tab Q4HP PRN PO 03/27/25 16:30 03/31/25 20:04 1 TAB Morphine Sulfate 2 mg Q4HPRN PRN IV 03/27/25 16:30 03/28/25 10:32 2 MG Warfarin Sodium RX PROTOCOL target ... PER PHARMACY PO 03/27/25 18:00 Cancel Pantoprazole Sodium 40 mg DAILY@0600 PO 03/28/25 06:00 04/03/25 06:14 40 MG Warfarin Sodium RX PROTOCOL PER PHARMACY PO 03/29/25 15:45 Heparin Sodium/ Dextrose 250 ml @ 14 mls/hr [id number] IV 04/03/25 13:09 04/03/25 13:09 14 MLS/HR Examination General: Patient alert and oriented in person, place and time. Patient following commands. HEENT: Normocephalic, atraumatic, moist mucous membranes Respiratory/pulmonary: Clear breath sounds bilaterally without wheeze, crackles or rhonchi Cardiovascular: Normal heart sounds S1 and S2 with no associated murmurs Abdomen: Abdomen nondistended, there is no pain to palpation in any of the abdominal quadrants, no palpable masses. Extremities: There is no peripheral edema present at the lower extremities. Peripheral Pulses: 3+ Radial (R). 3+ Radial (L). 3+ Dorsalis pedis (R). 3+ Dorsalis pedis(L) Skin: No rashes or pruritus, there is no sacral edema present at this time. Neurological: Intact cranial nerves with no focal neurologic deficits laboratory and microbiology Laboratory Tests 04/03/25 03:04 04/02/25 04:45 Test 04/02/25 04:45 Range/Units Serum Glucose 88 74-106 mg/dL Microbiology Date/Time Source Procedure Growth Status 03/27/25 18:09 Blood Blood Culture - Final NO GROWTH AFTER 5 DAYS OF INCUBATION. Complete Problem List/Assessment/Plan Problem List/Assessment/Plan Pulmonary embolism, rule out cor pulmonale, 2nd episode S/p thrombectomy S/p IVC infrarenal filter placement (03/29/25) Bilateral lower extremity DVT History of recurrent PE and DVTs S/P Thrombectomy Homozygous for prothrombin gene mutation History of patent foramen ovale, unrepaired CXR shows no acute cardiopulmonary disease Lower extremity doppler shows bilateral DVT in popliteal veins CT angiography: Emboli extending from the bilateral pulmonary arteries into the segmental branches. Heparin bolus 4000 units, followed by heparin drip per pharmacy Serial troponins, lactic acid, echocardiogram Patient will benefit from genetic counseling if he wishes to participate Interventional radiology on board Status post IVC infrarenal filter placement and thrombectomy (03/29/25) Continue warfarin per pharmacy, loading dose given. INR subtherapeutic, trending down. Continue heparin bridging. Monitor INR closely Medication noncompliance, secondary to insurance issues Alcohol use disorder Nicotine-dependence Marijuana dependence Polysubstance abuse Counseled patient extensively on the importance of adhering to blood thinners, provided options for alternative blood thinners as well as warfarin, patient demonstrated understanding, we will revisit discussion closer to the time of discharge. UDS positive for cocaine, cannabis DIET: Regular DVT PROPHYLAXIS: On Warfarin GI PROPHYLAXIS: Protonix CODE STATUS: Goals of care discussed with patient at bedside for more than 18 minutes. Full code DISPOSITION: Telemetry This medical document was created using an electronic medical record system with [email or web address] direct computerized dictation system. Although this document has been carefully reviewed, there may still be some phonetic and typographical errors. These areas are purely typographical due to imperfections of the software programs, and do not reflect any compromise in the patient's medical care. Patient's status and plan discussed with the patient. Case discussed with Dr. Funes Plan discussed with: Patient, Other (Nurses) My Orders My Orders Orders - SUSHILA WAYNE RESIDENT Procedure Category Date Status Time Discontinue Tele JEWELS 04/02/25 In Process 16:45 Transfer Orders XFER 04/02/25 Transmitted 16:45 Dietary Evaluation Review Comments: Monitor PO intake, lab values, weight trend, and I/O Expected Outcomes/Goals: Intake to meet >75% estimated needs FU 5-7 days Date of Service: Apr 03, 2025 Billing Provider: JUSTIN FUNES MD Common Visit Codes: [id number] INP/OBS CARE(HIGH) SUSHILA WAYNE RESIDENT Apr 03, 2025 15:39 JUSTIN FUNES MD Apr 03, 2025 16:14
[2025-04-03 19:22] LABS: INR 1.66 (0.9-1.15); Partial Thromboplastin Time 67.4 SEC (24.5-34.5); Prothrombin Time 16.7 sec (9.3-11.8)
[2025-04-04] VITALS (8 sets, daily range): BP systolic 90–107; BP diastolic 43–69; PULSE 59–92; RESP 16–20; TEMP 97.3–98.2; O2SAT 94–98
[2025-04-04 01:53] LABS: INR 1.66 (0.9-1.15); Prothrombin Time 16.7 sec (9.3-11.8)
[2025-04-04 02:25] LABS: Partial Thromboplastin Time 72.9 SEC (24.5-34.5)
[2025-04-04] MEDS ORDERED: HEPARIN DRIP/D5W 100UNITS/ML 250 ML IV SCH (02:45)
[2025-04-04] MEDS: HEPARIN DRIP/D5W 100UNITS/ML 250 ML IV SCH (02:46)
[2025-04-04] MEDS: WARFARIN SODIUM 5 MG TAB PO ONE (09:15)
[2025-04-04 10:10] LABS: INR 1.54 (0.9-1.15); Partial Thromboplastin Time 58.7 SEC (24.5-34.5); Prothrombin Time 15.6 sec (9.3-11.8)
--- NOTE | 2025-04-04 10:39 | CONS ---
Pharmacy Clinical Information: HEPARIN DRIP, DVT PROTOCOL @0922 APTT = 58.7 - NO BOLUS, NO CHANGE NEXT APTT SCHEDULED @1500 PER RX PROTOCOL CONFIRMED AND READ BACK WITH RN JACQUE DAVILA [facility] RESIDENT Apr 04, 2025 10:39
--- NOTE | 2025-04-04 13:37 | DVHPNRES ---
Progress Note Date Seen: Apr 04, 2025 Resident Creating Document: SUSHILA WAYNE RESIDENT Medical Necessity Reason Pt with a Central, PICC or Fol: No Subjective Review of Systems Brief history on admission: This is a 29-year-old male with past medical history of patent foramen ovale, homozygous for prothrombin gene mutation, recurrent DVT, PE, presented with chief complain of chest pain and dyspnea. According to the patient, he woke up on the morning of 02/24/25, around 7:30 a.m. with a sharp and burning left shoulder/shoulder blade pain, which then progressed to involve the left chest. Patient describes the pain as sharp, warm, constant in nature, radiating to the left chest, 10/10 in intensity at the time of onset, worsened with inspiration and movement, without any relieving factors and associated with shortness of breaths, dyspnea, and dizziness, which is what prompted this visit to the hospital. Patient notes he had similar symptoms in September 2023 when he was diagnosed with a pulmonary embolism and underwent thrombectomy x2. On review of systems patient is complaining of anxiety, negative for everything else at the time of my assessment. Lower extremity Doppler showed bilateral DVTs, CT angiography showed Emboli extending from the bilateral pulmonary arteries into the segmental branches. EKG shows some nonspecific repolarization abnormality. Previous hospitalization: [place] 1-05/24 year back for thrombectomy for PE PMHx: Patent foramen ovale, homozygous for prothrombin gene mutation PSHx: Thrombectomy x2, hernia repair surgery Family history: Both parents are carrier for prothrombin gene mutation Social history: Smokes nicotine, uses marijuana and cocaine (last used-last week). Denies other drug use, alcohol use. Home medication: None; patient ran out of insurance and did not continue Eliquis prescribed in [place] Allergic history: No known allergy Primary care doctor: Dr. Adria cadet 03/28/2025: Complains of 8 on 10 chest pain on deep inspiration. 03/29/2025: Underwent thrombectomy and IVC filter placement. Started on warfarin for cost issues, considering patient not having insurance was a factor in non-compliance to Eliquis in the past. 03/31/2025: No new complaints. 04/02/25: Complain of SOB, chest pain on exertion. Continue to monitor INR closely. 04/03/2025: Continues to complain of shortness of breaths and chest pain on exertion, improving from baseline. His INR is subtherapeutic, trending down. Continue heparin bridge and monitor INR. 04/04/2025: Patient was seen at bedside today. Symptoms improving from baseline. His INR remains subtherapeutic. Continue heparin bridge and monitor INR. Objective vital signs Vital Sign Date Time Temp Pulse Resp B/P (MAP) Pulse Ox O2 Delivery O2 Flow Rate FiO2 04/04/25 12:46 97.4 67 19 102/69 (80) 96 97.4 04/03/25 20:00 Room Air* 0 21 Total Intake and Output 04/03/25 04/03/25 04/04/25 15:00 23:00 07:00 Intake Total 756 ml 898 ml Balance 756 ml 898 ml medications Current Medications Medications Dose Ordered Sig/Emigdio Route Start Time Stop Time Status Last Admin Dose Admin Acetaminophen 325 mg Q4HP PRN PO 03/27/25 16:30 Acetaminophen/ Hydrocodone Bitart 1 tab Q4HP PRN PO 03/27/25 16:30 03/31/25 20:04 1 TAB Morphine Sulfate 2 mg Q4HPRN PRN IV 03/27/25 16:30 03/28/25 10:32 2 MG Warfarin Sodium RX PROTOCOL target ... PER PHARMACY PO 03/27/25 18:00 Cancel Pantoprazole Sodium 40 mg DAILY@0600 PO 03/28/25 06:00 04/04/25 05:13 40 MG Warfarin Sodium RX PROTOCOL PER PHARMACY PO 03/29/25 15:45 Heparin Sodium/ Dextrose 250 ml @ 14 mls/hr [id number] IV 04/04/25 02:45 04/04/25 02:46 14 MLS/HR laboratory and microbiology Laboratory Tests 04/03/25 03:04 04/02/25 04:45 Test 04/02/25 04:45 Range/Units Serum Glucose 88 74-106 mg/dL Microbiology Date/Time Source Procedure Growth Status 03/27/25 18:09 Blood Blood Culture - Final NO GROWTH AFTER 5 DAYS OF INCUBATION. Complete Problem List/Assessment/Plan Problem List/Assessment/Plan Pulmonary embolism, rule out cor pulmonale, 2nd episode S/p thrombectomy S/p IVC infrarenal filter placement (03/29/25) Bilateral lower extremity DVT History of recurrent PE and DVTs S/P Thrombectomy Homozygous for prothrombin gene mutation History of patent foramen ovale, unrepaired CXR shows no acute cardiopulmonary disease Lower extremity doppler shows bilateral DVT in popliteal veins CT angiography: Emboli extending from the bilateral pulmonary arteries into the segmental branches. Heparin bolus 4000 units, followed by heparin drip per pharmacy Serial troponins, lactic acid, echocardiogram Patient will benefit from genetic counseling if he wishes to participate Interventional radiology on board Status post IVC infrarenal filter placement and thrombectomy (03/29/25) Continue warfarin per pharmacy, loading dose given. Echo shows LVEF 60%, normal valvular function. INR subtherapeutic, trending down. Continue heparin bridging. Today INR 1.66; Monitor INR closely Medication noncompliance, secondary to insurance issues Alcohol use disorder Nicotine-dependence Marijuana dependence Polysubstance abuse Counseled patient extensively on the importance of adhering to blood thinners, provided options for alternative blood thinners as well as warfarin, patient demonstrated understanding, we will revisit discussion closer to the time of discharge. UDS positive for cocaine, cannabis DIET: Regular DVT PROPHYLAXIS: On Warfarin GI PROPHYLAXIS: Protonix CODE STATUS: Goals of care discussed with patient at bedside for more than 18 minutes. Full code DISPOSITION: Telemetry This medical document was created using an electronic medical record system with [employer] direct computerized dictation system. Although this document has been carefully reviewed, there may still be some phonetic and typographical errors. These areas are purely typographical due to imperfections of the software programs, and do not reflect any compromise in the patient's medical care. Patient's status and plan discussed with the patient. Case discussed with Dr. Funes Plan discussed with: Patient, Other (nurses) Dietary Evaluation Review Comments: Monitor PO intake, lab values, weight trend, and I/O Expected Outcomes/Goals: Intake to meet >75% estimated needs FU 5-7 days Date of Service: Apr 04, 2025 Billing Provider: JUSTIN FUNES MD Common Visit Codes: [id number] INP/OBS CARE(HIGH) SUSHILA WAYNE RESIDENT Apr 04, 2025 13:37 JUSTIN FUNES MD Apr 04, 2025 22:21
[2025-04-04 15:27] LABS: INR 1.6 (0.9-1.15); Partial Thromboplastin Time 51.5 SEC (24.5-34.5); Prothrombin Time 16.2 sec (9.3-11.8)
--- NOTE | 2025-04-04 15:53 | CONS ---
Pharmacy Clinical Information: HEPARIN DRIP, DVT PROTOCOL @1444 APTT = 51.5 - NO BOLUS, NO CHANGE x3 NEXT APTT SCHEDULED 11/14 AM PER RX PROTOCOL CONFIRMED AND READ BACK WITH JACQUE PUGH [facility] RESIDENT Apr 04, 2025 15:53
[2025-04-04] MEDS ORDERED: WARFARIN SODIUM 5 MG TAB PO ONE (17:00)
[2025-04-05] VITALS (7 sets, daily range): BP systolic 90–108; BP diastolic 50–63; PULSE 62–92; RESP 17–18; TEMP 97.3–98.6; O2SAT 95–98
[2025-04-05 07:31] LABS: Hematocrit 44.1 % (41.0-53.0); Hemoglobin 15.1 g/dL (13.5-17.5); Mean Corpuscular Hemoglobin 30.9 pg (28.0-32.0); Mean Corpuscular Volume 90.0 fL (80.0-100.0); Nucleated Red Blood Cells % 0.3 %
[2025-04-05 07:52] LABS: INR 1.77 (0.9-1.15); Partial Thromboplastin Time 49.6 SEC (24.5-34.5); Prothrombin Time 17.7 sec (9.3-11.8)
[2025-04-05] MEDS: WARFARIN SODIUM 5 MG TAB PO ONE (10:07)
[2025-04-05 12:54] LABS: INR 1.74 (0.9-1.15); Partial Thromboplastin Time 64.9 SEC (24.5-34.5); Prothrombin Time 17.5 sec (9.3-11.8)
[2025-04-05 16:08] LABS: INR 1.73 (0.9-1.15); Partial Thromboplastin Time 63.3 SEC (24.5-34.5); Prothrombin Time 17.4 sec (9.3-11.8)
--- NOTE | 2025-04-05 16:54 | DVHPNRES ---
Progress Note Date Seen: Apr 05, 2025 Resident Creating Document: SUSHILA WAYNE RESIDENT Medical Necessity Reason Pt with a Central, PICC or Fol: No Subjective Review of Systems Brief history on admission: This is a 29-year-old male with past medical history of patent foramen ovale, homozygous for prothrombin gene mutation, recurrent DVT, PE, presented with chief complain of chest pain and dyspnea. According to the patient, he woke up on the morning of 02/24/25, around 7:30 a.m. with a sharp and burning left shoulder/shoulder blade pain, which then progressed to involve the left chest. Patient describes the pain as sharp, warm, constant in nature, radiating to the left chest, 10/10 in intensity at the time of onset, worsened with inspiration and movement, without any relieving factors and associated with shortness of breaths, dyspnea, and dizziness, which is what prompted this visit to the hospital. Patient notes he had similar symptoms in September 2023 when he was diagnosed with a pulmonary embolism and underwent thrombectomy x2. On review of systems patient is complaining of anxiety, negative for everything else at the time of my assessment. Lower extremity Doppler showed bilateral DVTs, CT angiography showed Emboli extending from the bilateral pulmonary arteries into the segmental branches. EKG shows some nonspecific repolarization abnormality. Previous hospitalization: [place] 1-05/24 year back for thrombectomy for PE PMHx: Patent foramen ovale, homozygous for prothrombin gene mutation PSHx: Thrombectomy x2, hernia repair surgery Family history: Both parents are carrier for prothrombin gene mutation Social history: Smokes nicotine, uses marijuana and cocaine (last used-last week). Denies other drug use, alcohol use. Home medication: None; patient ran out of insurance and did not continue Eliquis prescribed in [place] Allergic history: No known allergy Primary care doctor: Dr. Adria cadet 03/28/2025: Complains of 8 on 10 chest pain on deep inspiration. 03/29/2025: Underwent thrombectomy and IVC filter placement. Started on warfarin for cost issues, considering patient not having insurance was a factor in non-compliance to Eliquis in the past. 03/31/2025: No new complaints. 04/02/25: Complain of SOB, chest pain on exertion. Continue to monitor INR closely. 04/03/2025: Continues to complain of shortness of breaths and chest pain on exertion, improving from baseline. His INR is subtherapeutic, trending down. Continue heparin bridge and monitor INR. 04/04/2025: Symptoms improving from baseline. His INR remains subtherapeutic. Continue heparin bridge and monitor INR. 04/05/2025: Patient was seen at bedside today. Improved symptoms subjectively. His INR remains subtherapeutic at 1.7. Continue heparin bridging Objective vital signs Vital Sign Date Time Temp Pulse Resp B/P (MAP) Pulse Ox O2 Delivery O2 Flow Rate FiO2 04/05/25 13:00 97.7 68 18 97/55 (69) 98 97.7 04/05/25 08:20 Room Air* 0 21 Total Intake and Output 04/04/25 04/04/25 04/05/25 15:00 23:00 07:00 Intake Total 600 ml 660 ml Balance 600 ml 660 ml medications Current Medications Medications Dose Ordered Sig/Emigdio Route Start Time Stop Time Status Last Admin Dose Admin Acetaminophen 325 mg Q4HP PRN PO 03/27/25 16:30 Acetaminophen/ Hydrocodone Bitart 1 tab Q4HP PRN PO 03/27/25 16:30 03/31/25 20:04 1 TAB Morphine Sulfate 2 mg Q4HPRN PRN IV 03/27/25 16:30 03/28/25 10:32 2 MG Warfarin Sodium RX PROTOCOL target ... PER PHARMACY PO 03/27/25 18:00 Cancel Pantoprazole Sodium 40 mg DAILY@0600 PO 03/28/25 06:00 04/05/25 06:00 40 MG Warfarin Sodium RX PROTOCOL PER PHARMACY PO 03/29/25 15:45 Heparin Sodium/ Dextrose 250 ml @ 14 mls/hr [id number] IV 04/04/25 02:45 04/05/25 16:22 14 MLS/HR Examination General: Patient alert and oriented in person, place and time. Patient following commands. HEENT: Normocephalic, atraumatic, moist mucous membranes Respiratory/pulmonary: Clear breath sounds bilaterally without wheeze, crackles or rhonchi Cardiovascular: Normal heart sounds S1 and S2 with no associated murmurs Abdomen: Abdomen nondistended, there is no pain to palpation in any of the abdominal quadrants, no palpable masses. Extremities: There is no peripheral edema present at the lower extremities. Peripheral Pulses: 3+ Radial (R). 3+ Radial (L). 3+ Dorsalis pedis (R). 3+ Dorsalis pedis(L) Skin: No rashes or pruritus, there is no sacral edema present at this time. Neurological: Intact cranial nerves with no focal neurologic deficits laboratory and microbiology Laboratory Tests 04/05/25 04:49 04/02/25 04:45 Test 04/02/25 04:45 Range/Units Serum Glucose 88 74-106 mg/dL Microbiology Date/Time Source Procedure Growth Status 03/27/25 18:09 Blood Blood Culture - Final NO GROWTH AFTER 5 DAYS OF INCUBATION. Complete Problem List/Assessment/Plan Problem List/Assessment/Plan Pulmonary embolism, rule out cor pulmonale, 2nd episode S/p thrombectomy S/p IVC infrarenal filter placement (03/29/25) Bilateral lower extremity DVT History of recurrent PE and DVTs S/P Thrombectomy Homozygous for prothrombin gene mutation History of patent foramen ovale, unrepaired CXR shows no acute cardiopulmonary disease Lower extremity doppler shows bilateral DVT in popliteal veins CT angiography: Emboli extending from the bilateral pulmonary arteries into the segmental branches. Heparin bolus 4000 units, followed by heparin drip per pharmacy Serial troponins, lactic acid, echocardiogram Patient will benefit from genetic counseling if he wishes to participate Interventional radiology on board Status post IVC infrarenal filter placement and thrombectomy (03/29/25) Continue warfarin per pharmacy, loading dose given. Echo shows LVEF 60%, normal valvular function. INR subtherapeutic, trending down. Continue heparin bridging. Today INR 1.7; Monitor INR closely Medication noncompliance, secondary to insurance issues Alcohol use disorder Nicotine-dependence Marijuana dependence Polysubstance abuse Counseled patient extensively on the importance of adhering to blood thinners, provided options for alternative blood thinners as well as warfarin, patient demonstrated understanding, we will revisit discussion closer to the time of discharge. UDS positive for cocaine, cannabis DIET: Regular DVT PROPHYLAXIS: On Warfarin GI PROPHYLAXIS: Protonix CODE STATUS: Goals of care discussed with patient at bedside for more than 18 minutes. Full code DISPOSITION: Telemetry This medical document was created using an electronic medical record system with [employer] direct computerized dictation system. Although this document has been carefully reviewed, there may still be some phonetic and typographical errors. These areas are purely typographical due to imperfections of the software programs, and do not reflect any compromise in the patient's medical care. Patient's status and plan discussed with the patient. Case discussed with Dr. Funes Plan discussed with: Patient, Other (Nurses) Dietary Evaluation Review Comments: Monitor PO intake, lab values, weight trend, and I/O Expected Outcomes/Goals: Intake to meet >75% estimated needs FU 5-7 days Date of Service: Apr 05, 2025 Billing Provider: JUSTIN FUNES MD Common Visit Codes: [id number] INP/OBS CARE(HIGH) SUSHILA WAYNE RESIDENT Apr 05, 2025 16:54 JUSTIN FUNES MD Apr 05, 2025 23:35
[2025-04-06 01:00] VITALS: BP 120/71; PULSE 113; RESP 17; TEMP 100; O2SAT 95
[2025-04-06 05:00] VITALS: BP 105/68; PULSE 71; RESP 19; TEMP 99.2; O2SAT 95
[2025-04-06 05:03] LABS: Hematocrit 46.4 % (41.0-53.0); Hemoglobin 15.8 g/dL (13.5-17.5); Mean Corpuscular Hemoglobin 30.5 pg (28.0-32.0); Mean Corpuscular Volume 89.6 fL (80.0-100.0); Nucleated Red Blood Cells % 0.1 %
[2025-04-06 05:30] LABS: INR 1.77 (0.9-1.15); Prothrombin Time 17.7 sec (9.3-11.8)
[2025-04-06 05:36] LABS: Partial Thromboplastin Time 83.7 SEC (24.5-34.5)
[2025-04-06] MEDS: HEPARIN DRIP/D5W 100UNITS/ML 250 ML IV SCH (06:00)
[2025-04-06 09:00] VITALS: BP 100/60; PULSE 58; RESP 15; TEMP 97.6; O2SAT 97
[2025-04-06 12:32] VITALS: BP 99/56; PULSE 67; RESP 15; TEMP 97.4; O2SAT 97
[2025-04-06 12:40] LABS: INR 2.06 (0.9-1.15); Partial Thromboplastin Time 68.5 SEC (24.5-34.5); Prothrombin Time 20.3 sec (9.3-11.8)
--- NOTE | 2025-04-06 14:28 | DVHPN2 ---
Eyes: No Pain, No Vision change, No Conjunctivae inflammation, No Eyelid inflammation, No Other, No Redness ENT: No Ear pain, No Ear discharge, No Nose pain, No Nose discharge, No Nose congestion, No Mouth pain, No Mouth swelling, No Throat pain, No Throat swelling, No Other Cardiovascular: Chest Pain; No Palpitations, No Orthopnea, No Paroxysmal Noc. Dyspnea, No Edema, No Lt Headedness, No Other Respiratory: No Cough, No Dry, No Shortness of breath, No SOB with excertion, No Wheezing, No Hemoptysis, No Pleuritic Pain, No Sputum, No Other Gastrointestinal: No Nausea, No Vomiting, No Abdominal Pain, No Diarrhea, No Constipation, No Melena, No Hematochezia, No Other Genitourinary: No Dysuria, No Frequency, No Incontinence, No Hematuria, No Retention, No Other Musculoskeletal: No other, No neck pain, No shoulder pain, No arm pain; back pain; No hand pain, No leg pain, No foot pain Skin: No Rash, No Lesions, No Jaundice, No Bruising, No Other Objective Vitals Vital Signs Date Time Temp Pulse Resp B/P (MAP) Pulse Ox O2 Delivery O2 Flow Rate FiO2 04/06/25 12:32 97.4 67 15 99/56 (70) 97 97.4 04/06/25 08:18 Room Air* 0 21 Intake/Output Intake and Output 04/06/25 07:00 Intake Total 1525 ml Balance 1525 ml Intake Oral 1525 ml # Voids 7 # Bowel Movements 3 Medications Current Medications Medications Dose Ordered Sig/Emigdio Route Start Time Stop Time Status Last Admin Dose Admin Acetaminophen 325 mg Q4HP PRN PO 03/27/25 16:30 Acetaminophen/ Hydrocodone Bitart 1 tab Q4HP PRN PO 03/27/25 16:30 03/31/25 20:04 1 TAB Morphine Sulfate 2 mg Q4HPRN PRN IV 03/27/25 16:30 03/28/25 10:32 2 MG Warfarin Sodium RX PROTOCOL target ... PER PHARMACY PO 03/27/25 18:00 Cancel Pantoprazole Sodium 40 mg DAILY@0600 PO 03/28/25 06:00 04/06/25 06:41 40 MG Warfarin Sodium RX PROTOCOL PER PHARMACY PO 03/29/25 15:45 Heparin Sodium/ Dextrose 250 ml @ 12 mls/hr [id number] IV 04/06/25 06:00 04/06/25 08:03 12 MLS/HR Laboratory Results Laboratory Tests 04/02/25 04:45 04/06/25 04:37 Coagulation Test 04/05/25 15:32 04/06/25 04:37 04/06/25 12:04 Prothrombin Time 17.4 sec (9.3-11.8) H 17.7 sec (9.3-11.8) H 20.3 sec (9.3-11.8) H Prothrombin Time INR 1.73 (0.9-1.15) H 1.77 (0.9-1.15) H 2.06 (0.9-1.15) H Activated Partial Thromboplast Time 63.3 SEC (24.5-34.5) H 83.7 SEC (24.5-34.5) *H 68.5 SEC (24.5-34.5) H Urinalysis Test 03/27/25 17:54 Urine Color Yellow (Yellow) Urine Clarity Clear (Clear) Urine pH 7.0 (5.0-9.0) Urine Specific [place] 1.050 (1.001-1.035) Urine Protein Negative (Negative) Urine Ketones Negative (Negative) Urine Blood Negative /uL (Negative) Urine Nitrite Negative (Negative) Urine Bilirubin Negative (Negative) Urine Urobilinogen Normal mg/dL (Negative) Urine Leukocyte Esterase Negative /uL (Negative) Urine RBC 1 /hpf (0 - 3) Urine Microscopic WBC < 1 /HPF (0-3) Urine Squamous Epithelial Cells Few /hpf (<5) Urine Bacteria None seen /hpf (None Seen) Urine Mucus Few (None Seen) Urine Glucose Normal mg/dL (Normal) Microbiology Microbiology Date/Time Source Procedure Growth Status 03/27/25 18:09 Blood Blood Culture - Final NO GROWTH AFTER 5 DAYS OF INCUBATION. Complete Assessment/Plan Assessment/Plan Pulmonary embolism, rule out cor pulmonale, 2nd episode S/p thrombectomy S/p IVC infrarenal filter placement (03/29/25) Bilateral lower extremity DVT History of recurrent PE and DVTs S/P Thrombectomy Homozygous for prothrombin gene mutation History of patent foramen ovale, unrepaired CXR shows no acute cardiopulmonary disease Lower extremity doppler shows bilateral DVT in popliteal veins CT angiography: Emboli extending from the bilateral pulmonary arteries into the segmental branches. Heparin bolus 4000 units, followed by heparin drip per pharmacy Serial troponins, lactic acid, echocardiogram Patient will benefit from genetic counseling if he wishes to participate Interventional radiology on board Status post IVC infrarenal filter placement and thrombectomy (03/29/25) Continue warfarin per pharmacy, loading dose given. Echo shows LVEF 60%, normal valvular function. INR subtherapeutic, trending down. Continue heparin bridging. Today INR 1.7; Monitor INR closely Medication noncompliance, secondary to insurance issues Alcohol use disorder Nicotine-dependence Marijuana dependence Polysubstance abuse Counseled patient extensively on the importance of adhering to blood thinners, provided options for alternative blood thinners as well as warfarin, patient demonstrated understanding, we will revisit discussion closer to the time of discharge. UDS positive for cocaine, cannabis DIET: Regular DVT PROPHYLAXIS: On Warfarin GI PROPHYLAXIS: Protonix CODE STATUS: Goals of care discussed with patient at bedside for more than 18 minutes. Full code DISPOSITION: Telemetry Plan discussed with: Patient JUSTIN TOSCANO MD Apr 06, 2025 14:28
--- NOTE | 2025-04-06 15:03 | DVHDS2 ---
Discharge Summary Date of Admission Mar 27, 2025 at 16:22 Date of Discharge: Apr 06, 2025 Admitting Diagnosis Pulmonary embolism, rule out cor pulmonale, 2nd episode S/p thrombectomy S/p IVC infrarenal filter placement (03/29/25) Bilateral lower extremity DVT History of recurrent PE and DVTs S/P Thrombectomy Homozygous for prothrombin gene mutation History of patent foramen ovale, unrepaired Medication noncompliance, secondary to insurance issues Alcohol use disorder Nicotine-dependence Marijuana dependence Polysubstance abuse Labs/Diagnostic Data: Laboratory Results Test 04/06/25 12:04 04/06/25 04:37 04/02/25 04:45 03/30/25 01:45 Prothrombin Time 20.3 sec (9.3-11.8) Prothrombin Time INR 2.06 (0.9-1.15) Activated Partial Thromboplast Time 68.5 SEC (24.5-34.5) White Blood Count 5.7 10^3/uL (4.4-10.8) Red Blood Count 5.18 10^6/uL (4.5-5.90) Hemoglobin 15.8 g/dL (13.5-17.5) Hematocrit 46.4 % (41.0-53.0) Mean Corpuscular Volume 89.6 fL (80.0-100.0) Mean Corpuscular Hemoglobin 30.5 pg (28.0-32.0) Mean Corpuscular Hemoglobin Concent 34.0 g/dL (32.0-36.0) Red Cell Distribution Width 12.4 % (11.8-14.3) Platelet Count 196 10^3/uL (140-450) Mean Platelet Volume 9.4 fL (6.9-10.8) Neutrophils (%) (Auto) 61.0 % (37.0-80.0) Lymphocytes (%) (Auto) 28.1 % (10.0-50.0) Monocytes (%) (Auto) 8.6 % (0.0-12.0) Eosinophils (%) (Auto) 1.3 % (0.0-7.0) Basophils (%) (Auto) 1.0 % (0.0-2.0) Neutrophils # (Auto) 3.4 10 ^3/uL (1.6-8.6) Lymphocytes # (Auto) 1.6 10 ^3/uL (0.4-5.4) Monocytes # (Auto) 0.5 10 ^3/uL (0-1.3) Eosinophils # (Auto) 0.1 10 ^3/uL (0-0.8) Basophils # (Auto) 0.1 10 ^3/uL (0-0.2) Nucleated Red Blood Cells 0.1 % Sodium Level 139 mmol/L (136-145) Potassium Level 3.9 mmol/L (3.5-5.1) Chloride Level 102 mmol/L (98-107) Carbon Dioxide Level 27 mmol/L (20-31) Anion Gap 10 (5-15) Blood Urea Nitrogen 7 mg/dL (9-23) Creatinine 0.88 mg/dL (0.700-1.30) Glomerular Filtration Rate Calc 120 mL/min (>90) BUN/Creatinine Ratio 8.0 (10.0-20.0) Serum Glucose 88 mg/dL (74-106) Calcium Level 9.7 mg/dL (8.7-10.4) Total Bilirubin 0.4 mg/dL (0.2-1.0) Aspartate Amino Transferase (AST) 27 U/L (13-40) Alanine Aminotransferase (ALT) 21 U/L (7-40) Alkaline Phosphatase 99 U/L (46-116) Total Protein 6.4 g/dL (5.7-8.2) Albumin 3.6 g/dL (3.2-4.8) Test 03/27/25 18:00 03/27/25 17:56 03/27/25 17:54 03/27/25 17:08 Influenza Type A Antigen Negative (Negative) Influenza Type B Antigen Negative (Negative) SARS-CoV-2 Antigen (Rapid) Negative (NEGATIVE) Hemoglobin A1c 4.5 % A1C (<5.7) Urine Color Yellow (Yellow) Urine Clarity Clear (Clear) Urine pH 7.0 (5.0-9.0) Urine Specific [place] 1.050 (1.001-1.035) Urine Protein Negative (Negative) Urine Ketones Negative (Negative) Urine Blood Negative /uL (Negative) Urine Nitrite Negative (Negative) Urine Bilirubin Negative (Negative) Urine Urobilinogen Normal mg/dL (Negative) Urine Leukocyte Esterase Negative /uL (Negative) Urine RBC 1 /hpf (0 - 3) Urine Microscopic WBC < 1 /HPF (0-3) Urine Squamous Epithelial Cells Few /hpf (<5) Urine Bacteria None seen /hpf (None Seen) Urine Mucus Few (None Seen) Urine Glucose Normal mg/dL (Normal) Urine Opiates Screen Pos (NEGATIVE) Urine Fentanyl Screen Neg (NEGATIVE) Urine Barbiturates Screen Neg (NEGATIVE) Urine Phencyclidine Screen Neg (NEGATIVE) Urine Amphetamines Screen Neg (NEGATIVE) Urine Benzodiazepines Screen Neg (NEGATIVE) Urine Cocaine Screen Pos (NEGATIVE) Urine Cannabinoids Screen Pos (NEGATIVE) Lactic Acid Level 0.8 mmol/L (0.4-2.0) Direct Bilirubin 0.3 mg/dL (<0.3) Troponin I High Sensitivity < 3 ng/L (</=54) B-Type Natriuretic Peptide 47.55 pg/mL (0-100) Test 03/27/25 12:50 D-Dimer, Quantitative 5.14 mg/L FEU (0.0-0.49) Other Laboratory Tests 04/06/25 04:37 04/02/25 04:45 Brief Hx & Hospital Course: This is 29 years old male with past medical history of patent [place] ovale, homozygous for prothrombin gene mutation, who comes in due to chest pain and dyspnea. According to the patient, he woke up around 7:30 a.m. with a sharp and burning left shoulder/shoulder blade pain, which then progressed to involve the left chest. Patient describes the pain as sharp, warm, constant in nature, radiating to the left chest, 10/10 in intensity at the time of onset, worsened with inspiration and movement, without any relieving factors and associated with shortness of breaths, dyspnea, and dizziness, which is what prompted this visit to the hospital. Patient notes he had similar symptoms in September 2023 when he was diagnosed with a pulmonary embolism and underwent thrombectomy x2. On review of systems patient is complaining of anxiety, negative for everything else at the time of my assessment. Lower extremity Doppler showed bilateral DVTs, CT angiography showed Emboli extending from the bilateral pulmonary arteries into the segmental branches. EKG shows some nonspecific repolarization abnormality. The patient was admitted. The patient was started on Coumadin because he can not afford Eliquis. The patient's INR finally a therapeutic today at 2.06. I am going to discharge the patient home today. Advised the patient to follow up with primary care physician 1-2 weeks. Follow up with Coumadin clinic per schedule. Activity as tolerated. Diet per home diet. Physical exam: HEENT: Normocephalic atraumatic pupils equal react to light and accommodation. Extraocular muscles intact, conjunctiva pink, oropharynx moist, no thrush, no exudate. Lymphatic: No lymphadenopathy Cardiovascular exam: S1, S2 was heard. No murmurs, rubs, gallops Lung: Clear on auscultation bilaterally, no wheeze, rale, rhonchi. GI: Abdominal soft, nondistended, nontenderness, positive bowel sounds. Extremity: No crepitus, cyanosis, edema. Pedal pulses present bilateral. Full range of motion. Skin: Normal turgor, no rash. Psych: Alert, oriented x3. Neurology: No focal deficits, cranial nerve II to XII grossly intact. This medical document was created using an electronic medical record system with [employer] direct computerized dictation system. Although this document has been carefully reviewed, there may still be some phonetic and typographical errors. These areas are purely typographical due to imperfections of the software programs, and do not reflect any compromise in the patient's medical care. Condition at Discharge: Stable Final Diagnosis/Problems List Recurrent Pulmonary embolism, ruled out cor pulmonale, 2nd episode S/p thrombectomy S/p IVC infrarenal filter placement Bilateral lower extremity DVT History of recurrent PE and DVTs S/P Thrombectomy Homozygous for prothrombin gene mutation History of patent foramen ovale, unrepaired Medication noncompliance, secondary to insurance issues Alcohol use disorder Nicotine-dependence Marijuana dependence Polysubstance abuse Discharge Disposition: Home Discharge Instruct/Medications Diet: Regular Activity: No Restrictions, As Tolerated Activity comment: Avoid contact sports Follow Up/Referral: Discharge clinic on 04/05/[address] Kailey MD PCP in 1 week Coumadrin clinic Medications: As per EHR Scheduled Warfarin Sodium (Warfarin Sodium), 1.5 TAB PO DAILY Scheduled PRN Hydrocodone-Acetaminophen (Hydrocodone Bitartrate/AC 10-325 mg), 1 TAB PO Q6HP PRN Discontinued Medications Apixaban Base (Eliquis), 5 MG PO BID Apixaban Base (Eliquis), 5 MG PO BID Clindamycin Hcl (Clindamycin Hcl), 300 MG PO TID Discharge Statement: "Patient was advised to return to the ER or call 911 if any headaches, dizziness, shortness of breath, chest pain, abdominal pain, bleeding, fevers, or worsening of medical condition. Patient was counseled about treatment plan, medications, possible side effects, patientverbalized understanding. All questions were answered to the best of my ability. This discharge took greater then 30 minutes in planning, reviewing documentation, counseling the patient, and discussing with other team members." ASSESSMENT ASSESSMENT Assessment Recurrent Pulmonary embolism, ruled out cor pulmonale, 2nd episode S/p thrombectomy S/p IVC infrarenal filter placement Bilateral lower extremity DVT History of recurrent PE and DVTs S/P Thrombectomy Homozygous for prothrombin gene mutation History of patent foramen ovale, unrepaired Medication noncompliance, secondary to insurance issues Alcohol use disorder Nicotine-dependence Marijuana dependence Polysubstance abuse Date of Service: Apr 06, 2025 Billing Provider: JUSTIN TOSCANO MD Common Visit Codes: [id number] DISCH DAY >30min JUSTIN TOSCANO MD Apr 06, 2025 15:03
[2025-04-06] MEDS: WARFARIN SODIUM 5 MG TAB PO ONE (15:46)
== END 2025-04-06 15:50 | disposition home or self-care (01) | DRG 271 ==
LOC: EEVIPCON 12:20 → ER 12:20 → EDBD 12:20 → OVERFLOW 16:22 → TELE-EAST 21:09 → EAST 04-02 21:18
PROVIDERS: ADMIT Internal Medicine; ATTEND Internal Medicine
PROC: 06H03DZ Insertion of Intraluminal Device into Inferior Vena Cava, Percutaneous Approach (ICD-10-PCS; principal; 2025-03-29)
PROC: 06CY3ZZ Extirpation of Matter from Lower Vein, Percutaneous Approach (ICD-10-PCS; 2025-03-29)
PROC: B51D1ZZ Fluoroscopy of Bilateral Lower Extremity Veins using Low Osmolar Contrast (ICD-10-PCS; 2025-03-29)
DX: I82.403 Acute embolism and thrombosis of unspecified deep veins of lower extremity, bilateral (principal); D68.52 Prothrombin gene mutation; Q21.12 Patent foramen ovale; F12.20 Cannabis dependence, uncomplicated; F10.10 Alcohol abuse, uncomplicated; F17.200 Nicotine dependence, unspecified, uncomplicated; Z20.822 Contact with and (suspected) exposure to COVID-19; F41.9 Anxiety disorder, unspecified; Z91.148 Patient's other noncompliance with medication regimen for other reason; Z86.711 Personal history of pulmonary embolism
CPT/HCPCS: 36415; 37187; 37619; 71045; 71275; 80048; 80053; 80076; 80307; 81001; 82565; 83036; 83605; 83880; 84132; 84484; 85025; 85379; 85610; 85730; 86850; 86900; 86901; 87040; 87426; 87804; 93005; 93306; 93970; 96374; 96375; 99152; 99291; C1769; C1894; G0378; J2250; J2405